=== PATIENT | female | born 1945 | race Caucasian/White ===

== ENCOUNTER 2017-06-18 09:18 | Emergency (ER) | payer MEDICARE, SELFPAY | END 2017-06-18 10:18 | disposition home or self-care (01) | PROVIDERS: Emergency Provider Nurse Practitioner; Family Provider Family Medicine; Visit Provider Nurse Practitioner | DX: J06.9 Acute upper respiratory infection, unspecified (principal) | CPT/HCPCS: 87804; 87880; 99201 ==

== ENCOUNTER → 2017-07-26 07:38 | Outpatient (CLI) | payer MEDICARE, SELFPAY ==
[2017-07-26 09:49] LABS: Blood Urea Nitrogen 14 mg/dL (7-18); Carbon Dioxide 32 mmol/L (21.0-32.0); Chloride 105 mmol/L (98-107); Creatinine,Serum 0.78 mg/dL (0.55-1.02); Estimated Glomerular Filt Rate 73 ml/min (>60); GFR (African American) 89 ML/MIN (>60); Glucose 88 mg/dL (74-106); Sodium 145 mmol/L (136-145)
== END ==
PROVIDERS: PCP Family Medicine; Visit Provider Internal Medicine
DX: I25.10 Atherosclerotic heart disease of native coronary artery without angina pectoris (principal)
CPT/HCPCS: 36415; 80048

== ENCOUNTER → 2017-10-28 14:47 | Outpatient (CLI) | payer MEDICARE, SELFPAY ==
--- NOTE | 2017-10-28 | CT_ITS ---
CT lung screening EXAM: CT LUNG LOW DOSE WO CONTRAST COMPARISON: 06/03/2017 HISTORY: 72-year-old female with 40 pack-year smoking history asymptomatic ITS.REASON: NICOTINE DEPENDENCE, COPD ORDERING PHYSICIAN: Mike Harp MD PATIENT AGE: 72 years TECHNIQUE: The exam was performed on a GE Light Speed [address] scanner using report 90 mGy CTDI. A low dose helical CT CHEST was performed on a multi-detector scanner. All CT scans at the facility use one or more dose reduction, viz: automated exposure control; ma/kV adjustment per patient size (including targeted exams where dose is matched to indication; i.e. head); or iterative reconstruction technique. The LDCT was performed in a facility that meets the criteria for the screening program. Data regarding this exam was submitted to ACR which is an approved registry. The order for this exam indicates that it came as a result of a lung cancer screening counseling shard decision-making visit that included all the elements required of such a visit including smoking cessation. The radiologist interpreting this exam meets the CMS criteria for the LDCT lung cancer screening program. The exam is reported using the Lung-RADS classification scale and reported to the ACR registry. NOTE: This study was performed for the specific purposes of lung cancer screening and is not an alternative to diagnostic chest CT. RADIATION DOSE: CTDI vol(CT dose Index-volume) = 2.90mG DLP (Dose Length Product) = 101.48 mGcm FINDINGS: Centrilobular emphysema. Scattered areas of fibrosis/atelectatic changes are noted. Bronchial thickening 4 mm noncalcified nodule right lung base 4 mm nodule right upper lobe medially unchanged 4 mm nodule left apex. Calcified granuloma left lower lobe. Increasing volume loss is present in the left upper lobe medially adjacent to the anterior mediastinum Coronary artery calcifications. IMPRESSION: 1. Lung RADS Category: 2, benign 2. Other findings: Centrilobular emphysema with scattered areas of fibrosis and obstructive chronic bronchitis Coronary artery calcifications consistent with coronary artery disease RECOMMENDATIONS: 12 month LDCT follow-up
== END ==
PROVIDERS: Family Provider Family Medicine; PCP Family Medicine; Visit Provider Family Medicine
DX: Z87.891 Personal history of nicotine dependence (principal); Z12.2 Encounter for screening for malignant neoplasm of respiratory organs; J44.9 Chronic obstructive pulmonary disease, unspecified

== ENCOUNTER → 2017-11-02 09:22 | Outpatient (CLI) | payer MEDICARE, SELFPAY ==
--- NOTE | 2017-11-02 09:24 | MM_ITS ---
MM Dig screening mamm BI w/CAD CAD Screening ORDERING PHYSICIAN : Mike Harp MD PATIENT AGE: 72 years GENDER: Female HISTORY no hormones no new complaints previous stereotactic biopsies left breast 2015 COMPARISON: September 24, 2015 September. March 2001 Bilateral breast Ultrasound September 19 2015 . TECHNIQUE: Standard CC and MLO images were obtained. R2 CAD reviewed. FINDINGS: RIGHT BREAST:The round density at the central right breast is again noted. 8 x x 8.7 mm height. This Is been present since 2016 mammogram with no significant change.. . Ultrasound reveal benign-appearing solid nodules. We recommended ultrasound biopsy at that time 2015 but apparently no biopsy of the right breast was performed. However given the stability at this point this can be it can be followed-suspect benign fibroadenoma. Recommend right breast ultrasound and mammogram 6 months Remainder the right breast appears stable as well. LEFT BREAST:. 2 metallic marker markers are seen at the deep left breast. The 2 groupings of calcifications were removed September 2015 with placement of these markers. Both groupings calcification groupings were found to be benign sclerosing adenosis and fibroadenomatoid change.. An additional grouping small calcifications at the deep upper outer quadrant left breast is more evident today. This is labeled Z. It was likely present before but but the calcifications are slightly denser on this more evident. These may reflect progressing vascular calcifications or could reflect a similar process to previous biopsy area labeled X in 2016. I favor these are benign but would suggest follow-up 6-7 months t for continued monitoring. . IMPRESSION: Most likely benign findings bilaterally but would benefit from follow-up in 6-7 months to support such.: LEFT BREAST: 1. Metallic markers at site of 2 Previous 2016 stereotactic biopsy left breast 2. Slightly more evident grouping of small calcifications deeper at the left breast labeled Z today. The calcifications are denser slightly more evident today but likely reflects benign calcification grouping-(either vascular calcification or adenosis). At this point suggest 6- 7 month follow-up. RIGHT BREAST Just less than 9 mm nodular density at right breast was noted on prior mammogram and ultrasound 2015. 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 I suggest right mammogram and right breast ultrasound in 6-7 months to further evaluate this area as well BI-RADS Category: 3 Benign Finding Short Term Follow-up RECOMMENDED FOLLOW-UP: 6M - 7 MONTH FOLLOW-UP Bilateral mammogram and right breast ultrasound 6-7 months (A letter has been sent to the patient regarding results of the study.)
== END ==
PROVIDERS: Family Provider Family Medicine; PCP Family Medicine; Visit Provider Family Medicine
DX: Z12.31 Encounter for screening mammogram for malignant neoplasm of breast (principal)
CPT/HCPCS: 77067

== ENCOUNTER → 2017-11-08 14:10 | Outpatient (CLI) | payer MEDICARE, SELFPAY | PROVIDERS: PCP Family Medicine; Visit Provider Family Medicine | DX: G47.30 Sleep apnea, unspecified (principal); R40.0 Somnolence; R06.83 Snoring | CPT/HCPCS: 95806 ==

== ENCOUNTER → 2018-01-05 10:25 | Outpatient (CLI) | payer MEDICARE, SELFPAY ==
[2018-01-05 10:31] LABS: Microscopic, Urine URINE MICROSCOPIC (MICROSCOPIC)
[2018-01-05 10:48] LABS: Basophils # 0.1 K/mm3 (0-0.2); Basophils % 0.6 % (0.1-2.0); Eosinophils # 0.2 K/mm3 (0.0-0.4); Eosinophils % 1.7 % (0.1-12.0); Hematocrit 42.7 % (37.0-47.0); Lymphocytes # 2.6 K/mm3 (0.7-4.5); Lymphocytes % 22.9 K/mm3 (10-50); Mean Corpuscular HGB Conc 32.8 g/dL (31.8-35.4); Mean Corpuscular Hemoglobin 30.4 pg (27.0-31.2); Mean Corpuscular Volume 92.8 fl (81-99); Mean Platelet Volume 7.9 fl (7.4-10.4); Monocytes # 0.4 K/mm3 (0.1-1.0); Monocytes % 3.4 % (1.7-9.3); Neutrophils # 8.2 K/mm3 (1.8-7.8); Neutrophils % 71.4 % (37.0-80.0); Platelet Count 437 K/mm3 (142-424); Red Cell Distribution Width 12.7 % (11.5-17.5); White Blood Count 11.4 K/mm3 (4.8-10.8)
[2018-01-05 10:54] LABS: Appearance,Urine CLEAR (Clear); Bilirubin,Urine Negative (Negative); Blood, Urine Negative (Negative); Color,Urine YELLOW (Yellow); Glucose,Urine (UA) Negative (Negative); Ketones,Urine Negative (Negative); Leukocyte Esterase,Urine TRACE (Negative); Nitrate,Urine Negative (Negative); Protein,Urine Negative (Negative); Specific Gravity, Urine 1.015 (1.005-1.030); Urobilinogen,Urine 0.2 EU/dl (0.2)
[2018-01-05 11:06] LABS: Bacteria,Urine Trace /lpf; Squamous Epithelial Cell,Urine 20-50 #/hpf (0-5); WBC,Urine Occasional #/hpf (0-3)
[2018-01-05 11:32] LABS: Alanine Aminotransferase 20 U/L (12-78); Albumin Level 3.3 gm/dL (3.4-5.0); Alkaline Phosphatase 145 U/L (46-116); Anion Gap 7.2 mEq/L (5-15); Aspartate Amino Transferase 9 U/L (15-37); Bilirubin,Direct 0.1 mg/dL (0.0-0.2); Bilirubin,Indirect 0.3 mg/dL (0.0-0.9); Bilirubin,Total 0.4 mg/dL (0.2-1.0); Blood Urea Nitrogen 11 mg/dL (7-18); Calcium 9.2 mg/dL (8.5-10.1); Carbon Dioxide 33 mmol/L (21.0-32.0); Chloride 103 mmol/L (98-107); Chol/HDL Ratio 4.9 (1-3.5); Cholesterol 192 mg/dL (140-200); Creatinine,Serum 0.91 mg/dL (0.55-1.02); Estimated Glomerular Filt Rate 61 ml/min (>60); Free T4 (Free Thyroxine) 1.03 ng/dl (0.76-1.46); GFR (African American) 74 ML/MIN (>60); Glucose 104 mg/dL (74-106); HDL Cholesterol 39 mg/dL (29-89); LDL Cholesterol 133 mg/dL (0-130); Potassium 3.2 mmoL/L (3.5-5.1); Sodium 140 mmol/L (136-145); Thyroid Stimulating Hormone 1.15 uIU/ml (0.358-3.740); Total Protein,Serum 6.7 gm/dL (6.4-8.2); Triglycerides 101 mg/dL (30-200); VLDL Cholesterol 20 mg/dL (0-40)
== END ==
PROVIDERS: Family Provider Family Medicine; PCP Family Medicine; Visit Provider Internal Medicine Cardiovascular Disease
DX: I25.10 Atherosclerotic heart disease of native coronary artery without angina pectoris (principal); I11.9 Hypertensive heart disease without heart failure; J44.9 Chronic obstructive pulmonary disease, unspecified; M79.661 Pain in right lower leg; M79.662 Pain in left lower leg; G25.81 Restless legs syndrome; I27.20 Pulmonary hypertension, unspecified; Z72.0 Tobacco use; R68.83 Chills (without fever)
CPT/HCPCS: 36415; 80048; 80061; 80076; 81001; 84439; 84443; 85025

== ENCOUNTER 2018-01-24 10:36 | Observation (INO) ==
[2018-01-24 11:59] LABS: Basophils % 0.1 % (0.1-2.0); Eosinophils % 0.2 % (0.1-12.0); Hematocrit 47.6 % (37.0-47.0); Hemoglobin 15.7 g/dL (12.2-16.2); Lymphocytes # 1.2 K/mm3 (0.7-4.5); Mean Corpuscular Hemoglobin 30.1 pg (27.0-31.2); Mean Corpuscular Volume 91.4 fl (81-99); Mean Platelet Volume 6.8 fl (7.4-10.4); Monocytes # 0.9 K/mm3 (0.1-1.0); Monocytes % 4.5 % (1.7-9.3); Neutrophils # 18.4 K/mm3 (1.8-7.8); Neutrophils % 89.2 % (37.0-80.0); Platelet Count 551 K/mm3 (142-424); Red Blood Count 5.21 M/mm3 (4.20-5.40); White Blood Count 20.6 K/mm3 (4.8-10.8)
[2018-01-24 12:15] LABS: Albumin Level 3.3 gm/dL (3.4-5.0); Albumin/Globulin Ratio 0.8 (1.1-1.8); Bilirubin,Total 0.3 mg/dL (0.2-1.0); Calcium 8.9 mg/dL (8.5-10.1); Globulin 4.1 gm/dl (1.3-3.2); Total Protein,Serum 7.4 gm/dL (6.4-8.2)
[2018-01-24 12:15] LABS: ABG Base Excess 7.3 mmol/L (-2.4-2.3); ABG HCO3 31.4 mmhg (22.0-26.0); ABG Oxygen Saturation 92 % (90-100); ABG PCO2 46.5 mmhg (35.0-45.0); ABG PH 7.45 mmol/L (7.35-7.45); ABG PO2 63.3 mmhg (80-100); ABG TCO2 32.8 mmhg (23-27)
[2018-01-24 14:30] LABS: Lymphocytes % 5 % (10-50); Monocytes % 6 % (2-9); Neutrophils % 88 % (42-76); RBC Morphology Normal; Total Cells Counted 100
--- NOTE | 2018-01-24 15:38 | Pharmacy Consult Notes ---
[facility] Pharmacy VTE Monitoring - Patient Demographics Admission date: 01/24/18 Report Date: 01/24/18 Time: 15:38 Allergies/Adverse Reactions: Patient Allergies Penicillins Allergy (Severe, Verified 01/24/18 11:33) I-RASH AND DIFFICULTY BREATHING oxycodone [From PERCOCET] Allergy (Unknown, Verified 01/24/18 11:35) Rash acetaminophen [From PERCOCET] Adverse Reaction (Unknown, Verified 01/24/18 11:35 ) Gastrointestinal Upset codeine Adverse Reaction (Unknown, Verified 01/24/18 11:35) keeps her awake Height: 1.47 m Weight: 64.92 kg - VTE Risk Labs: VTE Related Lab Results Hgb 15.7 g/dL (12.2-16.2) 01/24/18 11:22 Hct 47.6 % (37.0-47.0) H 01/24/18 11:22 Plt Count 551 K/mm3 (142-424) H 01/24/18 11:22 BUN 33 mg/dL (7-18) H 01/24/18 11:22 Creatinine 1.14 mg/dL (0.55-1.02) H 01/24/18 11:22 Estimated Creat Clear 47 mL/min (0-300) 01/24/18 11:22 Was VTE Risk Assessment Performed: Yes VTE Score: 5 VTE Risk Level: Low Risk - Prophylaxis VTE Prophylaxis Ordered?: Yes Types of VTE Prophylaxis: TEDS Knee High Location of Applied Device: Bilateral Lower Extremeties - VTE Diagnosis Confirmed Treatment or plan recommended: Continue Current Treatment
--- NOTE | 2018-01-24 16:06 | Progress Note ---
Internal Medicine - PN: Subj *Date: 01/24/18 *Time: 16:03 Interval history: Patient was direct admitted from the office earlier in the day for COPD exacerbation that had failed outpatient treatment. Patient's O2 sats were in the mid 80s despite addition of supplemental oxygen as an outpatient. Since admission chest x-rays confirmed the presence of a right middle lobe pneumonia and white blood cell count has been elevated. Patient is only been hospitalized for a few hours and feels about the same. Exam Vital signs and Labs for Last 24 Hours: Temp Pulse Resp BP Pulse Ox 99.2 F 79 20 140/74 90 L 01/24/18 15:55 01/24/18 15:55 01/24/18 15:55 01/24/18 15:55 01/24/18 15:55 Laboratory Results - last 24 hr 01/24/18 11:22: WBC 20.6 H*, RBC 5.21, Hgb 15.7, Hct 47.6 H, MCV 91.4, MCH 30.1 , MCHC 33.0, RDW 13.0, Plt Count 551 H, MPV 6.8 L, Neut % (Auto) 89.2 H, Lymph % (Auto) 6.0 L, [place] % (Auto) 4.5, Eos % (Auto) 0.2, Baso % (Auto) 0.1, Neut # ( Auto) 18.4 H, Lymph # (Auto) 1.2, [place] # (Auto) 0.9, Eos # (Auto) 0.0, Baso # ( Auto) 0.0, Total Counted 100, Neutrophils % (Manual) 88 H, Lymphocytes % (Manual ) 5 L, Monocytes % (Manual) 6, Metamyelocytes % 1.0, Platelet Estimate Slight increase, RBC Morphology Normal 01/24/18 11:22: Sodium 138, Potassium 4.0, Chloride 99, Carbon Dioxide 33 H, Anion Gap 10.0, BUN 33 H, Creatinine 1.14 H, Estimated Creat Clear 47, Estimated GFR 47 L, Est GFR ( Amer) 57 L, Glucose 123 H, Calcium 8.9, Magnesium 2.4 H, Total Bilirubin 0.3, AST 11 L, ALT 19, Alkaline Phosphatase 138 H, Total Protein 7.4, Albumin 3.3 L, Globulin 4.1 H, Albumin/Globulin Ratio 0.8 L I & O for Last 24 hours: Intake & Output 01/22/18 01/23/18 01/24/18 01/25/18 11:59 11:59 11:59 11:59 Weight 143 lb 2 oz 143 lb 2 oz Assessment and Plan (1) Right middle lobe pneumonia Current visit: Yes Status: Acute Category: Medical Code(s): J18.1 - Lobar pneumonia, unspecified organism (2) COPD with exacerbation Current visit: Yes Status: Acute Category: Medical Code(s): J44.1 - Chronic obstructive pulmonary disease with (acute) exacerbation (3) Failure of outpatient treatment Current visit: Yes Status: Acute Category: Medical Code(s): Z78.9 - Other specified health status (4) Pulmonary hypertension Current visit: No Status: Chronic Category: Medical Code(s): I27.20 - Pulmonary hypertension, unspecified (5) Hypertensive heart disease Current visit: No Status: Chronic Category: Medical Code(s): I11.9 - Hypertensive heart disease without heart failure (6) Coronary arteriosclerosis Current visit: No Status: Chronic Category: Medical Code(s): I25.10 - Atherosclerotic heart disease of [place] coronary artery without angina pectoris - Assessment and plan all Dx Assessment and Plan for all problems:: Patient has been placed on intravenous steroids as well as duo nebs. Because of recent antibiotic use with Ceftin ear patient will be placed on broad- spectrum antibiotics until sputum culture is back
--- NOTE | 2018-01-24 16:22 | Pharmacy Consult Notes ---
- Pharmacy Consult Date: 01/24/18 Time: 16:21 Referring provider: DR. SUBRAMANIAN Reason for Consult:: VANCOMYCIN DOSING Allergies and ADEs:: Allergies Allergy/AdvReac Type Severity Reaction Status Date / Time Penicillins Allergy Severe I-RASH AND Verified 01/24/18 11:33 DIFFICULTY BREATHING oxycodone [From PERCOCET] Allergy Unknown Rash Verified 01/24/18 11:35 acetaminophen [From PERCOCET] AdvReac Unknown Gastrointestinal Verified 11:35 Upset codeine AdvReac Unknown keeps her Verified 01/24/18 11:35 awake Home Medications:: Home Medications Medication Instructions Recorded Confirmed Type atorvastatin 10 mg tablet 10 mg PO DAILY 07/07/17 01/24/18 History carvedilol 6.25 mg tablet 6.25 mg PO BID 07/07/17 01/24/18 History cholecalciferol (vitamin D3) 2,000 2,000 unit PO DAILY 07/07/17 01/24/18 History unit capsule furosemide 40 mg tablet 40 mg PO DAILYP PRN tab 07/07/17 01/24/18 History loratadine 10 mg tablet 10 mg PO DAILY 07/07/17 01/24/18 History montelukast 10 mg tablet 10 mg PO HS 07/07/17 01/24/18 History multivitamin tablet 1 tab PO DAILY 07/07/17 01/24/18 History omeprazole 20 mg capsule,delayed 20 mg PO DAILY 07/07/17 01/24/18 History release losartan 25 mg tablet 25 mg PO DAILY tab 01/05/18 01/24/18 History Benzonatate [Benzonatate 200mg Cap] 200 mg PO TID 01/24/18 01/24/18 History Cefdinir [Omnicef 300mg Capsule] 300 mg PO BID 01/24/18 01/24/18 History Fluticasone Propionate [Flonase 1 spray NOSTRIL-B BID 01/24/18 01/24/18 History 50mcg nasal spray 16gm] Fluticasone/Vilanterol [Breo 1 each IH DAILY 01/24/18 01/24/18 History Ellipta 200-25 Mcg INH] Hydrocod/Acet 5/325 mg [[place] 1 tab PO Q6HP PRN 01/24/18 01/24/18 History 5/325mg tablet] Ipratropium/Albuterol Sulfate 3 ml IH Q6H 01/24/18 01/24/18 History [Iprat-Albut 0.5-3(2.5) mg/3 ml] Potassium Chloride [Klor-Con 10mEq 10 meq PO BID 01/24/18 01/24/18 History tab] predniSONE [Deltasone 20mg 40 mg PO DAILY 01/24/18 01/24/18 History tablet] Height: 1.47 m Weight: 64.92 kg Laboratory Results:: Laboratory Results - last 24 hr 01/24/18 11:22: WBC 20.6 H*, RBC 5.21, Hgb 15.7, Hct 47.6 H, MCV 91.4, MCH 30.1 , MCHC 33.0, RDW 13.0, Plt Count 551 H, MPV 6.8 L, Neut % (Auto) 89.2 H, Lymph % (Auto) 6.0 L, [place] % (Auto) 4.5, Eos % (Auto) 0.2, Baso % (Auto) 0.1, Neut # ( Auto) 18.4 H, Lymph # (Auto) 1.2, [place] # (Auto) 0.9, Eos # (Auto) 0.0, Baso # ( Auto) 0.0, Total Counted 100, Neutrophils % (Manual) 88 H, Lymphocytes % (Manual ) 5 L, Monocytes % (Manual) 6, Metamyelocytes % 1.0, Platelet Estimate Slight increase, RBC Morphology Normal 01/24/18 11:22: Sodium 138, Potassium 4.0, Chloride 99, Carbon Dioxide 33 H, Anion Gap 10.0, BUN 33 H, Creatinine 1.14 H, Estimated Creat Clear 47, Estimated GFR 47 L, Est GFR ( Amer) 57 L, Glucose 123 H, Calcium 8.9, Magnesium 2.4 H, Total Bilirubin 0.3, AST 11 L, ALT 19, Alkaline Phosphatase 138 H, Total Protein 7.4, Albumin 3.3 L, Globulin 4.1 H, Albumin/Globulin Ratio 0.8 L Medical History: Reports:: Congestive Heart Failure, Hyperlipidemia, Hypertension Denies:: Diabetes Mellitus Type 1, Diabetes Mellitus Type 2 Assessment and Plan (1) Right middle lobe pneumonia Current visit: Yes Status: Acute Category: Medical Code(s): J18.1 - Lobar pneumonia, unspecified organism (2) COPD with exacerbation Current visit: Yes Status: Acute Category: Medical Code(s): J44.1 - Chronic obstructive pulmonary disease with (acute) exacerbation (3) Failure of outpatient treatment Current visit: Yes Status: Acute Category: Medical Code(s): Z78.9 - Other specified health status (4) Pulmonary hypertension Current visit: No Status: Chronic Category: Medical Code(s): I27.20 - Pulmonary hypertension, unspecified (5) Hypertensive heart disease Current visit: No Status: Chronic Category: Medical Code(s): I11.9 - Hypertensive heart disease without heart failure (6) Coronary arteriosclerosis Current visit: No Status: Chronic Category: Medical Code(s): I25.10 - Atherosclerotic heart disease of [place] coronary artery without angina pectoris - Assessment and plan all Dx Assessment and Plan for all problems:: BASED ON PATIENT FACTORS, RECOMMEND VANCOMYCIN 1 GM IV Q24H. PHARMACY WILL FOLLOW DAILY AND ADJUST APPROPRIATE.
[2018-01-25 06:01] LABS: Basophils % 0.1 % (0.1-2.0); Eosinophils # 0.1 K/mm3 (0.0-0.4); Eosinophils % 0.5 % (0.1-12.0); Hemoglobin 14.3 g/dL (12.2-16.2); Lymphocytes # 0.9 K/mm3 (0.7-4.5); Lymphocytes % 6.1 K/mm3 (10-50); Mean Corpuscular HGB Conc 33.2 g/dL (31.8-35.4); Mean Corpuscular Hemoglobin 31.1 pg (27.0-31.2); Mean Corpuscular Volume 93.6 fl (81-99); Mean Platelet Volume 6.7 fl (7.4-10.4); Monocytes # 0.4 K/mm3 (0.1-1.0); Monocytes % 2.5 % (1.7-9.3); Neutrophils # 12.6 K/mm3 (1.8-7.8); Neutrophils % 90.8 % (37.0-80.0); Platelet Count 400 K/mm3 (142-424); Red Blood Count 4.59 M/mm3 (4.20-5.40); Red Cell Distribution Width 13.1 % (11.5-17.5); White Blood Count 13.9 K/mm3 (4.8-10.8)
--- NOTE | 2018-01-25 07:20 | Progress Note ---
Internal Medicine - PN: Subj *Date: 01/25/18 *Time: 07:18 Interval history: Patient notes some improvement in her cough and dyspnea at rest. She still gets quite short of breath walking to and from the bathroom. Sputum production has decreased. She endorses additional symptoms of vaginal burning and itching from what she believes a yeast infection and difficulty swallowing. She feels like food is getting stuck just above the stomach whenever she is eating. Exam Vital signs and Labs for Last 24 Hours: Temp Pulse Resp BP Pulse Ox 97.8 F 81 20 149/84 89 L 01/25/18 04:00 01/25/18 06:05 01/25/18 04:00 01/25/18 04:00 01/25/18 06:05 Laboratory Results - last 24 hr 01/24/18 11:22: WBC 20.6 H*, RBC 5.21, Hgb 15.7, Hct 47.6 H, MCV 91.4, MCH 30.1 , MCHC 33.0, RDW 13.0, Plt Count 551 H, MPV 6.8 L, Neut % (Auto) 89.2 H, Lymph % (Auto) 6.0 L, [place] % (Auto) 4.5, Eos % (Auto) 0.2, Baso % (Auto) 0.1, Neut # ( Auto) 18.4 H, Lymph # (Auto) 1.2, [place] # (Auto) 0.9, Eos # (Auto) 0.0, Baso # ( Auto) 0.0, Total Counted 100, Neutrophils % (Manual) 88 H, Lymphocytes % (Manual ) 5 L, Monocytes % (Manual) 6, Metamyelocytes % 1.0, Platelet Estimate Slight increase, RBC Morphology Normal 01/24/18 11:22: Sodium 138, Potassium 4.0, Chloride 99, Carbon Dioxide 33 H, Anion Gap 10.0, BUN 33 H, Creatinine 1.14 H, Estimated Creat Clear 47, Estimated GFR 47 L, Est GFR ( Amer) 57 L, Glucose 123 H, Calcium 8.9, Magnesium 2.4 H, Total Bilirubin 0.3, AST 11 L, ALT 19, Alkaline Phosphatase 138 H, Total Protein 7.4, Albumin 3.3 L, Globulin 4.1 H, Albumin/Globulin Ratio 0.8 L 01/25/18 05:39: WBC 13.9 H D, RBC 4.59, Hgb 14.3, Hct 43.0, MCV 93.6, MCH 31.1, MCHC 33.2, RDW 13.1, Plt Count 400 D, MPV 6.7 L, Neut % (Auto) 90.8 H, Lymph % (Auto) 6.1 L, [place] % (Auto) 2.5, Eos % (Auto) 0.5, Baso % (Auto) 0.1, Neut # ( Auto) 12.6 H, Lymph # (Auto) 0.9, [place] # (Auto) 0.4, Eos # (Auto) 0.1, Baso # ( Auto) 0.0 I & O for Last 24 hours: Intake & Output 01/22/18 01/23/18 01/24/18 01/25/18 11:59 11:59 11:59 11:59 Intake Total 740 / 740 Output Total 600 / 600 Balance 140 / 140 Weight 143 lb 2 oz 144 lb 9 oz Microbiology Reports for the Last 24 Hours: Microbiology 01/24/18 11:37 Sputum - Expectorated Sputum Gram Stain - Final Narrative: Patient is in no distress. She sitting up on the side of the bed. Heart has a regular rate and rhythm. Lungs have rales in the right midlung best heard laterally and expiratory wheezes. Rhonchi have improved. Assessment and Plan (1) Right middle lobe pneumonia Current visit: Yes Status: Acute Category: Medical Code(s): J18.1 - Lobar pneumonia, unspecified organism (2) COPD with exacerbation Current visit: Yes Status: Acute Category: Medical Code(s): J44.1 - Chronic obstructive pulmonary disease with (acute) exacerbation (3) Failure of outpatient treatment Current visit: Yes Status: Acute Category: Medical Code(s): Z78.9 - Other specified health status (4) Pulmonary hypertension Current visit: No Status: Chronic Category: Medical Code(s): I27.20 - Pulmonary hypertension, unspecified (5) Hypertensive heart disease Current visit: No Status: Chronic Category: Medical Code(s): I11.9 - Hypertensive heart disease without heart failure (6) Coronary arteriosclerosis Current visit: No Status: Chronic Category: Medical Code(s): I25.10 - Atherosclerotic heart disease of [place] coronary artery without angina pectoris - Assessment and plan all Dx Assessment and Plan for all problems:: Continue broad-spectrum antibiotics until cultures are back. Add Diflucan for candidiasis. Add Protonix and Reglan for her esophageal dysphagia
[2018-01-25 08:47] LABS: Lymphocytes % 8 % (10-50); Monocytes % 1 % (2-9); Neutrophils % 90 % (42-76); RBC Morphology Normal; Total Cells Counted 100
[2018-01-26 05:27] LABS: Basophils % 0.1 % (0.1-2.0); Eosinophils % 0.2 % (0.1-12.0); Hemoglobin 13.6 g/dL (12.2-16.2); Lymphocytes # 0.9 K/mm3 (0.7-4.5); Lymphocytes % 5.7 K/mm3 (10-50); Mean Corpuscular HGB Conc 32.3 g/dL (31.8-35.4); Mean Corpuscular Hemoglobin 29.9 pg (27.0-31.2); Mean Corpuscular Volume 92.4 fl (81-99); Mean Platelet Volume 6.6 fl (7.4-10.4); Monocytes # 0.6 K/mm3 (0.1-1.0); Monocytes % 3.7 % (1.7-9.3); Neutrophils # 14.7 K/mm3 (1.8-7.8); Neutrophils % 90.4 % (37.0-80.0); Platelet Count 440 K/mm3 (142-424); Red Blood Count 4.54 M/mm3 (4.20-5.40); White Blood Count 16.2 K/mm3 (4.8-10.8)
[2018-01-26 06:18] LABS: Lymphocytes % 7 % (10-50); Monocytes % 2 % (2-9); Neutrophils % 91 % (42-76); Total Cells Counted 100
[2018-01-26 06:19] LABS: Anisocytosis 1+
[2018-01-26 06:54] LABS: Oxygen 2LPM %
--- NOTE | 2018-01-26 07:05 | Progress Note ---
Internal Medicine - PN: Subj *Date: 01/26/18 *Time: 07:02 Interval history: Patient continues to feel better. She has dyspnea on exertion but this is improved some since yesterday. She endorses a lot of nasal congestion and nasal dryness from use of the supplemental oxygen. Exam Vital signs and Labs for Last 24 Hours: Temp Pulse Resp BP Pulse Ox 98.3 F 77 20 141/81 91 L 01/26/18 04:00 01/26/18 06:24 01/26/18 04:00 01/26/18 04:00 01/26/18 06:24 Laboratory Results - last 24 hr 01/24/18 10:14: Specimen Source R brachial, O2 % 2lpm, ABG pH 7.45, ABG pCO2 46.5 H, ABG pO2 63.3 L, ABG HCO3 31.4 H, ABG Total CO2 32.8 H, ABG O2 Saturation 92, ABG Base Excess 7.3 H, Jean Test N/a 01/25/18 05:39: Total Counted 100, Neutrophils % (Manual) 90 H, Lymphocytes % ( Manual) 8 L, Atypical Lymphs % 1.0, Monocytes % (Manual) 1 L, Platelet Estimate Slight increase, RBC Morphology Normal 01/26/18 04:40: WBC 16.2 H, RBC 4.54, Hgb 13.6, Hct 42.0, MCV 92.4, MCH 29.9, MCHC 32.3, RDW 13.0, Plt Count 440 H, MPV 6.6 L, Neut % (Auto) 90.4 H, Lymph % ( Auto) 5.7 L, [place] % (Auto) 3.7, Eos % (Auto) 0.2, Baso % (Auto) 0.1, Neut # ( Auto) 14.7 H, Lymph # (Auto) 0.9, [place] # (Auto) 0.6, Eos # (Auto) 0.0, Baso # ( Auto) 0.0, Total Counted 100, Neutrophils % (Manual) 91 H, Lymphocytes % (Manual ) 7 L, Monocytes % (Manual) 2, Platelet Estimate Normal, Anisocytosis 1+ I & O for Last 24 hours: Intake & Output 01/23/18 01/24/18 01/25/18 01/26/18 11:59 11:59 11:59 11:59 Intake Total 1010 / 1010 960 / 960 Output Total 700 / 700 1300 / 1300 Balance 310 / 310 -340 / -340 Weight 143 lb 2 oz 144 lb 9 oz 149 lb 1 oz Microbiology Reports for the Last 24 Hours: Microbiology 01/24/18 11:37 Sputum - Expectorated Sputum Gram Stain - Final 01/24/18 11:37 Sputum - Expectorated Sputum Sputum Culture - Preliminary Gram Negative Rods Narrative: When I enter the room patient is standing at the window. After removing 12 feet from the window to the bed patient gets mildly breathless. Lung exam reveals expiratory wheezes. Heart has a regular rate and rhythm. Assessment and Plan (1) Right middle lobe pneumonia Current visit: Yes Status: Acute Category: Medical Code(s): J18.1 - Lobar pneumonia, unspecified organism (2) COPD with exacerbation Current visit: Yes Status: Acute Category: Medical Code(s): J44.1 - Chronic obstructive pulmonary disease with (acute) exacerbation (3) Failure of outpatient treatment Current visit: Yes Status: Acute Category: Medical Code(s): Z78.9 - Other specified health status (4) Pulmonary hypertension Current visit: No Status: Chronic Category: Medical Code(s): I27.20 - Pulmonary hypertension, unspecified (5) Hypertensive heart disease Current visit: No Status: Chronic Category: Medical Code(s): I11.9 - Hypertensive heart disease without heart failure (6) Coronary arteriosclerosis Current visit: No Status: Chronic Category: Medical Code(s): I25.10 - Atherosclerotic heart disease of [place] coronary artery without angina pectoris (7) Acute respiratory failure Current visit: Yes Status: Acute Category: Medical Code(s): J96.00 - Acute respiratory failure, unspecified whether with hypoxia or hypercapnia - Assessment and plan all Dx Assessment and Plan for all problems:: Discontinue vancomycin due to the gram-negative [place] growing in the sputum culture. Continue levofloxacin. Await final sputum culture. Restart the patient's home fluticasone. Patient is improving.
--- NOTE | 2018-01-27 07:08 | Progress Note ---
Internal Medicine - PN: Subj *Date: 01/27/18 *Time: 07:07 Interval history: Patient feels better today than she did yesterday. She continues to have dyspnea on exertion. Cough has now become nonproductive. Exam Vital signs and Labs for Last 24 Hours: Temp Pulse Resp BP Pulse Ox 98.4 F 76 20 143/94 90 L 01/27/18 04:00 01/27/18 06:33 01/27/18 04:00 01/27/18 04:00 01/27/18 06:33 I & O for Last 24 hours: Intake & Output 01/24/18 01/25/18 01/26/18 01/27/18 11:59 11:59 11:59 11:59 Intake Total 1010 / 1010 1470 / 1470 1080 / 1080 Output Total 700 / 700 1300 / 1300 1950 / 1950 Balance 310 / 310 170 / 170 -870 / -870 Weight 143 lb 2 oz 144 lb 9 oz 149 lb 1 oz 151 lb 1 oz Microbiology Reports for the Last 24 Hours: Microbiology 01/24/18 11:37 Sputum - Expectorated Sputum Gram Stain - Final 01/24/18 11:37 Sputum - Expectorated Sputum Sputum Culture - Preliminary Gram Negative Rods Narrative: Patient is awake and sitting up on the side of the bed. There are no signs of respiratory distress or increased work of breathing. Lungs have expiratory wheezes without rhonchi or rales. Heart regular rate and rhythm. Assessment and Plan (1) Right middle lobe pneumonia Current visit: Yes Status: Acute Category: Medical Code(s): J18.1 - Lobar pneumonia, unspecified organism (2) COPD with exacerbation Current visit: Yes Status: Acute Category: Medical Code(s): J44.1 - Chronic obstructive pulmonary disease with (acute) exacerbation (3) Failure of outpatient treatment Current visit: Yes Status: Acute Category: Medical Code(s): Z78.9 - Other specified health status (4) Pulmonary hypertension Current visit: No Status: Chronic Category: Medical Code(s): I27.20 - Pulmonary hypertension, unspecified (5) Hypertensive heart disease Current visit: No Status: Chronic Category: Medical Code(s): I11.9 - Hypertensive heart disease without heart failure (6) Coronary arteriosclerosis Current visit: No Status: Chronic Category: Medical Code(s): I25.10 - Atherosclerotic heart disease of [place] coronary artery without angina pectoris (7) Acute respiratory failure Current visit: Yes Status: Acute Category: Medical Code(s): J96.00 - Acute respiratory failure, unspecified whether with hypoxia or hypercapnia - Assessment and plan all Dx Assessment and Plan for all problems:: Await sputum culture. If patient's sputum grow Pseudomonas she will need 6 additional days of IV antibiotics. If culture grows a non-pseudomonal organism patient can be discharged home later this afternoon to finish outpatient antibiotics and steroids.
[2018-01-27 07:12] LABS: Basophils % 0.1 % (0.1-2.0); Eosinophils % 0.3 % (0.1-12.0); Hematocrit 44.3 % (37.0-47.0); Hemoglobin 14.3 g/dL (12.2-16.2); Lymphocytes # 0.7 K/mm3 (0.7-4.5); Lymphocytes % 5.4 K/mm3 (10-50); Mean Corpuscular HGB Conc 32.2 g/dL (31.8-35.4); Mean Corpuscular Hemoglobin 30.2 pg (27.0-31.2); Mean Corpuscular Volume 93.6 fl (81-99); Mean Platelet Volume 6.7 fl (7.4-10.4); Monocytes # 0.5 K/mm3 (0.1-1.0); Monocytes % 3.5 % (1.7-9.3); Neutrophils # 12.2 K/mm3 (1.8-7.8); Neutrophils % 90.8 % (37.0-80.0); Platelet Count 456 K/mm3 (142-424); Red Blood Count 4.73 M/mm3 (4.20-5.40); Red Cell Distribution Width 13.2 % (11.5-17.5); White Blood Count 13.4 K/mm3 (4.8-10.8)
--- NOTE | 2018-01-27 07:26 | Discharge Summary ---
General - General Admission date:: 01/24/18 Discharge date: 01/27/18 HPI HPI: 72-year-old female admitted from the office with COPD exacerbation that had failed outpatient treatment. She returned to the office for her third visit in 10 days on January 23. At that time patient was quite rhonchus with wheezing and O2 sats in the mid 80s on supplemental oxygen of 2 L/min via nasal cannula. Decision was made to admit the patient to the hospital for failed outpatient treatment and further workup. Hospital Course Hospital Course: Patient was admitted and chest x-ray revealed a right middle lobe. White blood cell count was elevated at 20,000. Patient was started on vancomycin and Levaquin for broad-spectrum antibiotic coverage. Sputum which had been yellow begin to clear. Sputum culture grew a gram-negative [place] which at the time of this dictation is determined not to be Pseudomonas. Full identification and sensitivities still pending. Patient's O2 sats improved by the day of discharge her in the low 90s. Patient's activity tolerance improved a little each day in regards the amount of breathlessness she would experience. On January 27 patient was discharged home. She will finish a course of steroids and antibiotics and follow-up in my office on January 31. Objective Vital signs: Temp Pulse Resp BP Pulse Ox 98.4 F 76 20 143/94 90 L 01/27/18 04:00 01/27/18 06:33 01/27/18 04:00 01/27/18 04:00 01/27/18 06:33 Results Labs on day of discharge: Labs from last 24 hours 01/27/18 06:15 WBC 13.4 H RBC 4.73 Hgb 14.3 Hct 44.3 MCV 93.6 MCH 30.2 MCHC 32.2 RDW 13.2 Plt Count 456 H MPV 6.7 L Neut % (Auto) 90.8 H Lymph % (Auto) 5.4 L [place] % (Auto) 3.5 Eos % (Auto) 0.3 Baso % (Auto) 0.1 Neut # (Auto) 12.2 H Lymph # (Auto) 0.7 [place] # (Auto) 0.5 Eos # (Auto) 0.0 Baso # (Auto) 0.0 Preliminary micro results at discharge 01/24/18 11:37 Sputum Culture - Preliminary Sputum - Expectorated Sputum Gram Negative Rods DS: Diagnosis - Discharge Diagnosis (1) Right middle lobe pneumonia Status: Acute (2) COPD with exacerbation Status: Acute (3) Failure of outpatient treatment Status: Acute (4) Pulmonary hypertension Status: Chronic (5) Hypertensive heart disease Status: Chronic (6) Coronary arteriosclerosis Status: Chronic (7) Acute respiratory failure Status: Acute Discharge Plan - Patient Discharge Instructions ACTIVITY: Continue current activity DIET: continue same diet - Follow up Plan Follow up with: Mike Harp MD [Primary Care Provider] - Disposition: Home, Self-Fpc Medications: Home Medications Medication Instructions Recorded Confirmed Type atorvastatin 10 mg tablet 10 mg PO DAILY 07/07/17 01/24/18 History carvedilol 6.25 mg tablet 6.25 mg PO BID 07/07/17 01/24/18 History cholecalciferol (vitamin D3) 2,000 2,000 unit PO DAILY 07/07/17 01/24/18 History unit capsule furosemide 40 mg tablet 40 mg PO DAILYP PRN tab 07/07/17 01/24/18 History loratadine 10 mg tablet 10 mg PO DAILY 07/07/17 01/24/18 History montelukast 10 mg tablet 10 mg PO HS 07/07/17 01/24/18 History multivitamin tablet 1 tab PO DAILY 07/07/17 01/24/18 History omeprazole 20 mg capsule,delayed 20 mg PO DAILY 07/07/17 01/24/18 History release losartan 25 mg tablet 25 mg PO DAILY tab 01/05/18 01/24/18 History Benzonatate [Benzonatate 200mg Cap] 200 mg PO TID 01/24/18 01/24/18 History Cefdinir [Omnicef 300mg Capsule] 300 mg PO BID 01/24/18 01/24/18 History Fluticasone Propionate [Flonase 1 spray NOSTRIL-B BID 01/24/18 01/24/18 History 50mcg nasal spray 16gm] Fluticasone/Vilanterol [Breo 1 each IH DAILY 01/24/18 01/24/18 History Ellipta 200-25 Mcg INH] Hydrocod/Acet 5/325 mg [[place] 1 tab PO Q6HP PRN 01/24/18 01/24/18 History 5/325mg tablet] Ipratropium/Albuterol Sulfate 3 ml IH Q6H 01/24/18 01/24/18 History [Iprat-Albut 0.5-3(2.5) mg/3 ml] Potassium Chloride [Klor-Con 10mEq 10 meq PO BID 01/24/18 01/24/18 History tab] Prescriptions/Medication Reconciliation: New Fluconazole [Diflucan 100mg tablet] 100 mg PO DAILY #5 tab levoFLOXacin [Levaquin 750mg tablet] 750 mg PO DAILY #7 tab Continue atorvastatin 10 mg tablet 10 mg PO DAILY carvedilol 6.25 mg tablet 6.25 mg PO BID furosemide 40 mg tablet 40 mg PO DAILYP PRN tab PRN Reason: Edema montelukast 10 mg tablet 10 mg PO HS omeprazole 20 mg capsule,delayed release 20 mg PO DAILY multivitamin tablet 1 tab PO DAILY cholecalciferol (vitamin D3) 2,000 unit capsule 2,000 unit PO DAILY loratadine 10 mg tablet 10 mg PO DAILY losartan 25 mg tablet 25 mg PO DAILY tab Benzonatate [Benzonatate 200mg Cap] 200 mg PO TID Cefdinir [Omnicef 300mg Capsule] 300 mg PO BID Fluticasone/Vilanterol [Breo Ellipta 200-25 Mcg INH] 1 each IH DAILY Hydrocod/Acet 5/325 mg [[place] 5/325mg tablet] 1 tab PO Q6HP PRN PRN Reason: PAIN Potassium Chloride [Klor-Con 10mEq tab] 10 meq PO BID predniSONE [Deltasone 20mg tablet] 40 mg PO DAILY #10 tab Fluticasone Propionate [Flonase 50mcg nasal spray 16gm] 1 spray NOSTRIL-B BID Ipratropium/Albuterol Sulfate [Iprat-Albut 0.5-3(2.5) mg/3 ml] 3 ml IH Q6H
--- NOTE | 2018-01-27 07:30 | Progress Note ---
Internal Medicine - PN: Subj *Date: 01/27/18 *Time: 07:29 Exam Vital signs and Labs for Last 24 Hours: Temp Pulse Resp BP Pulse Ox 98.4 F 76 20 143/94 90 L 01/27/18 04:00 01/27/18 06:33 01/27/18 04:00 01/27/18 04:00 01/27/18 06:33 Laboratory Results - last 24 hr 01/27/18 06:15: WBC 13.4 H, RBC 4.73, Hgb 14.3, Hct 44.3, MCV 93.6, MCH 30.2, MCHC 32.2, RDW 13.2, Plt Count 456 H, MPV 6.7 L, Neut % (Auto) 90.8 H, Lymph % ( Auto) 5.4 L, [place] % (Auto) 3.5, Eos % (Auto) 0.3, Baso % (Auto) 0.1, Neut # ( Auto) 12.2 H, Lymph # (Auto) 0.7, [place] # (Auto) 0.5, Eos # (Auto) 0.0, Baso # ( Auto) 0.0 I & O for Last 24 hours: Intake & Output 01/24/18 01/25/18 01/26/18 01/27/18 23:59 23:59 23:59 23:59 Intake Total 630 / 630 1490 / 1490 1440 / 1440 Output Total 1600 / 1600 2350 / 2350 Balance 630 / 630 -110 / -110 -910 / -910 Weight 64.92 kg 65.572 kg 67.614 kg 68.521 kg Microbiology Reports for the Last 24 Hours: Microbiology 01/24/18 11:37 Sputum - Expectorated Sputum Gram Stain - Final 01/24/18 11:37 Sputum - Expectorated Sputum Sputum Culture - Preliminary Gram Negative Rods Assessment and Plan (1) Right middle lobe pneumonia Current visit: Yes Status: Acute Category: Medical Code(s): J18.1 - Lobar pneumonia, unspecified organism (2) COPD with exacerbation Current visit: Yes Status: Acute Category: Medical Code(s): J44.1 - Chronic obstructive pulmonary disease with (acute) exacerbation (3) Failure of outpatient treatment Current visit: Yes Status: Acute Category: Medical Code(s): Z78.9 - Other specified health status (4) Pulmonary hypertension Current visit: No Status: Chronic Category: Medical Code(s): I27.20 - Pulmonary hypertension, unspecified (5) Hypertensive heart disease Current visit: No Status: Chronic Category: Medical Code(s): I11.9 - Hypertensive heart disease without heart failure (6) Coronary arteriosclerosis Current visit: No Status: Chronic Category: Medical Code(s): I25.10 - Atherosclerotic heart disease of [place] coronary artery without angina pectoris (7) Acute respiratory failure Current visit: Yes Status: Acute Category: Medical Code(s): J96.00 - Acute respiratory failure, unspecified whether with hypoxia or hypercapnia The patient's infection will respond to the chosen ABx?: Yes Is the patient receiving the right drug, dose, and route?: Yes Could a more targeted ABx be ordered?: No 7 (PT BEING TRANSFERRED TO SWING BED FOR 7 MORE DAYS)
[2018-01-27 08:11] LABS: Lymphocytes % 9 % (10-50); Monocytes % 4 % (2-9); Neutrophils % 87 % (42-76); Total Cells Counted 100
[2018-01-27 08:14] LABS: RBC Morphology Normal
== END 2018-01-27 08:50 | disposition home or self-care (01) ==
LOC: 2ND
PROVIDERS: ADMIT Family Medicine; ATTEND Family Medicine
CPT/HCPCS: 36415; 71020; 71046; 80053; 82803; 83735; 85007; 85025; 87070; 87077; 87186; 87205; 94640; 94761; G0378; J1956; J3370

== ENCOUNTER → 2018-04-24 08:22 | Outpatient (CLI) | payer MEDICARE, SELFPAY ==
--- NOTE | 2018-04-24 08:25 | US_ITS ---
US gallbladder Ordering Physician: Mike Harp MD Patient Age: 72 years: Female HISTORY: ITS.REASON: RUQ PAIN right upper quadrant pain. Food greasy &//Fatty food intolerance TECHNIQUE: Ultrasound right upper quadrant COMPARISON :None relevant FINDINGS Pancreas. Unremarkable. Head, body and medial tail of pancreas well visualized and appears satisfactory. Liver. Unremarkable. No biliary ductal dilatation. No lesions. Satisfactory architecture. Hepatic and portal vein survey unremarkable. Common duct. Normal diameter. Gallbladder... Collection of focal sludge at the fundus of gallbladder.. However there is no shadowing here in this 10 to favor sludge within stone. No gallbladder wall thickening. No inflammation. Right kidney 8.4 cm in length. Mild diffuse cortical thinning. No hydronephrosis nor mass. IMPRESSION: 1. Gallbladder. Focal collection of echogenic sludge towards fundus is noted but no definitive shadowing gallstones Gallbladder otherwise unremarkable. Common duct normal. Liver pancreas unremarkable Right kidney. Mild Diffuse cortical thinning
== END ==
PROVIDERS: PCP Family Medicine; Visit Provider Family Medicine
DX: R10.11 Right upper quadrant pain (principal)
CPT/HCPCS: 76705

== ENCOUNTER → 2018-04-28 13:34 | Outpatient (CLI) | payer MEDICARE, SELFPAY ==
--- NOTE | 2018-04-28 13:37 | MM_ITS ---
MM Dig mamm BI DX w/CAD INDICATION: Follow-up abnormal mammogram ORDERING PHYSICIAN: Mike Harp MD PATIENT AGE: 72 years COMPARISON: 11/02/2017, 09/04/2015 TECHNIQUE: Standard images performed along with problem solving views and bilateral breast ultrasound FINDINGS: Average fibroglandular tissue. There are numerous bilateral nodular densities. A nodular density is present in the central aspect of the right breast is somewhat similar appearance on 09/19/2015 measured approximately 11 mm and may correspond to the solid nodule noted on the ultrasound and appear slightly larger on mammogram at 11 mm. Biopsy is suggested. No change in asymmetric density in the medial aspect of the right breast compared to 09/04/2015 Right breast ultrasound: There is a hypoechoic nodule at 12:00 near the nipple which measures 7 mm x 9 mm previously 10 x 8 mm. Stable since 09/19/2015 on ultrasound. There is a heterogeneous nodule at 8 mm at 2:00 near the nipple possibly due to fibroglandular tissue Left breast: Biopsy clip in the upper and inferior aspect of the left breast. They're mildly suspicious calcifications in the deep upper aspect of the left breast. Biopsy is suggested IMPRESSION: Solid-appearing nodule in the 12:00 region of the right breast appear slightly larger mammographically. Ultrasound-guided mammotome biopsy recommended Mildly suspicious calcifications in the upper outer left breast. Recommend stereotactic biopsy BI-RADS Category: 4 Suspicious Abnormality-Biopsy Considered RECOMMENDED FOLLOW-UP: BIO - BIOPSY RECOMMENDED (A letter has been sent to the patient regarding results of the study.)
== END ==
PROVIDERS: PCP Family Medicine; Visit Provider Family Medicine
DX: R92.8 Other abnormal and inconclusive findings on diagnostic imaging of breast (principal)
CPT/HCPCS: 76641; 77066

== ENCOUNTER → 2018-05-15 10:07 | Outpatient (CLI) | payer MEDICARE, SELFPAY ==
--- NOTE | 2018-05-15 | MM_ITS ---
US mammotome bx RT, US breast RT complete, MM Dig mamm DX unilat RT CAD INDICATION: Suspicious right breast nodule ORDERING PHYSICIAN: Mike Harp MD PATIENT AGE: 72 years COMPARISON: 04/28/2018 Prebiopsy ultrasound: Ultrasound performed of the right breast once again confirms presence of a hypoechoic nodule at the 12:00 region. The breast was marked appropriately for biopsy planning. TECHNIQUE: Following obtaining informed consent under aseptic conditions and local anesthesia with 1% buffered lidocaine and deeper anesthesia with lidocaine and epinephrine, 11-gauge mammotomy needle inserted through a skin incision under sonographic guidance and deemed to be in appropriate position. Multiple mammography cores are obtained. A nonferromagnetic clip was then placed in appropriate position. Pathology: Fibroadenoma to hyperplasia. Negative for atypia or malignancy. The pathology report states that this may represent a fibroadenoma Right breast mammogram post biopsy: 3 views are submitted showing that the previously noted nodule in the medial aspect of the right breast to be much smaller with a clip at this region. IMPRESSION: Successful sonographic guided mammotome biopsy showing benign findings. Recommend 6 month mammographic and sonographic follow-up per routine protocol BI-RADS Category: 2 Benign Finding(s) RECOMMENDED FOLLOW-UP: 6M - 6 MONTH FOLLOW-UP (A letter has been sent to the patient regarding results of the study.)
== END ==
PROVIDERS: PCP Family Medicine; Visit Provider Family Medicine
DX: R92.8 Other abnormal and inconclusive findings on diagnostic imaging of breast; N63.10 Unspecified lump in the right breast, unspecified quadrant
CPT/HCPCS: 19083; 76641; 77065; 88305; C2618

== ENCOUNTER → 2018-05-22 09:16 | Outpatient (CLI) | payer MEDICARE, SELFPAY ==
[2018-05-22 09:33] LABS: Basophils % 0.2 % (0.1-2.0); Eosinophils # 0.2 K/mm3 (0.0-0.4); Eosinophils % 1.4 % (0.1-12.0); Hematocrit 42.5 % (37.0-47.0); Hemoglobin 13.4 g/dL (12.2-16.2); Lymphocytes # 3.1 K/mm3 (0.7-4.5); Lymphocytes % 19.2 % (10-50); Mean Corpuscular HGB Conc 31.5 g/dL (31.8-35.4); Mean Corpuscular Volume 95.3 fl (81-99); Mean Platelet Volume 7.1 fl (7.4-10.4); Monocytes # 0.8 K/mm3 (0.1-1.0); Neutrophils # 12.1 K/mm3 (1.8-7.8); Neutrophils % 74.2 % (37.0-80.0); Platelet Count 285 K/mm3 (142-424); Red Blood Count 4.46 M/mm3 (4.20-5.40); Red Cell Distribution Width 13.7 % (11.5-17.5); White Blood Count 16.3 K/mm3 (4.8-10.8)
[2018-05-22 09:45] LABS: MANUAL DIFFERENTIAL MANUAL DIFFERENTIAL (MANUAL DIFF)
[2018-05-22 11:11] LABS: Alanine Aminotransferase 23 U/L (12-78); Albumin Level 2.8 gm/dL (3.4-5.0); Albumin/Globulin Ratio 0.9 (1.1-1.8); Alkaline Phosphatase 113 U/L (46-116); Anion Gap 11.2 mEq/L (5-15); Aspartate Amino Transferase 6 U/L (15-37); Bilirubin,Total 0.6 mg/dL (0.2-1.0); Blood Urea Nitrogen 11 mg/dL (7-18); Calcium 8.5 mg/dL (8.5-10.1); Carbon Dioxide 31 mmol/L (21.0-32.0); Chloride 103 mmol/L (98-107); Estimated Glomerular Filt Rate 71 ml/min (>60); GFR (African American) 86 ML/MIN (>60); Glucose 92 mg/dL (74-106); Potassium 4.2 mmoL/L (3.5-5.1); Sodium 141 mmol/L (136-145); Total Protein,Serum 5.8 gm/dL (6.4-8.2)
[2018-05-22 12:04] LABS: Eosinophils % 1 % (0-3); Lymphocytes % 27 % (10-50); Monocytes % 3 % (2-9); Neutrophils % 68 % (42-76); Platelet Estimate Normal; RBC Morphology Normal; Total Cells Counted 100
== END ==
PROVIDERS: Visit Provider Surgery
DX: J44.1 Chronic obstructive pulmonary disease with (acute) exacerbation (principal); R10.11 Right upper quadrant pain
CPT/HCPCS: 36415; 80053; 85007; 85025

== ENCOUNTER → 2018-05-24 07:27 | Outpatient (CLI) | payer MEDICARE, SELFPAY ==
[2018-05-24 08:25] LABS: Basophils % 0.3 % (0.1-2.0); Eosinophils # 0.1 K/mm3 (0.0-0.4); Hematocrit 43.9 % (37.0-47.0); Hemoglobin 13.9 g/dL (12.2-16.2); Lymphocytes # 2.9 K/mm3 (0.7-4.5); Lymphocytes % 21.6 % (10-50); Mean Corpuscular HGB Conc 31.6 g/dL (31.8-35.4); Mean Corpuscular Hemoglobin 30.6 pg (27.0-31.2); Mean Corpuscular Volume 96.8 fl (81-99); Mean Platelet Volume 7.1 fl (7.4-10.4); Monocytes # 0.6 K/mm3 (0.1-1.0); Monocytes % 4.5 % (1.7-9.3); Neutrophils # 9.9 K/mm3 (1.8-7.8); Neutrophils % 72.6 % (37.0-80.0); Platelet Count 305 K/mm3 (142-424); Red Blood Count 4.53 M/mm3 (4.20-5.40); Red Cell Distribution Width 13.8 % (11.5-17.5); White Blood Count 13.6 K/mm3 (4.8-10.8)
== END ==
PROVIDERS: Visit Provider Surgery
DX: R10.11 Right upper quadrant pain (principal); Z01.818 Encounter for other preprocedural examination
CPT/HCPCS: 36415; 85025

== ENCOUNTER → 2018-05-31 10:44 | Outpatient (CLI) | payer MEDICARE, SELFPAY | PROVIDERS: PCP Family Medicine; Visit Provider Surgery | DX: Z12.11 Encounter for screening for malignant neoplasm of colon (principal) | CPT/HCPCS: 93005 ==

== ENCOUNTER → 2018-07-12 07:33 | Outpatient (CLI) | payer MEDICARE, SELFPAY ==
[2018-07-12 10:00] LABS: Alanine Aminotransferase 18 U/L (12-78); Albumin Level 3.1 gm/dL (3.4-5.0); Alkaline Phosphatase 144 U/L (46-116); Aspartate Amino Transferase 8 U/L (15-37); Bilirubin,Direct 0.1 mg/dL (0.0-0.2); Bilirubin,Indirect 0.3 mg/dL (0.0-0.9); Bilirubin,Total 0.4 mg/dL (0.2-1.0); Chol/HDL Ratio 4.9 (1-3.5); Cholesterol 171 mg/dL (140-200); HDL Cholesterol 35 mg/dL (29-89); LDL Cholesterol 110 mg/dL (0-130); Total Protein,Serum 6.4 gm/dL (6.4-8.2); Triglycerides 131 mg/dL (30-200); VLDL Cholesterol 26 mg/dL (0-40)
== END ==
PROVIDERS: Visit Provider Internal Medicine Cardiovascular Disease
DX: E78.5 Hyperlipidemia, unspecified (principal); I11.9 Hypertensive heart disease without heart failure; I25.10 Atherosclerotic heart disease of native coronary artery without angina pectoris; I27.20 Pulmonary hypertension, unspecified; Z72.0 Tobacco use
CPT/HCPCS: 36415; 80061; 80076

== ENCOUNTER → 2018-08-23 07:48 | Outpatient (CLI) | payer MEDICARE, SELFPAY ==
[2018-08-23 09:33] LABS: Alanine Aminotransferase 14 U/L (12-78); Albumin Level 3.1 gm/dL (3.4-5.0); Alkaline Phosphatase 166 U/L (46-116); Aspartate Amino Transferase 8 U/L (15-37); Bilirubin,Direct 0.1 mg/dL (0.0-0.2); Bilirubin,Indirect 0.5 mg/dL (0.0-0.9); Bilirubin,Total 0.6 mg/dL (0.2-1.0); Chol/HDL Ratio 4.2 (1-3.5); Cholesterol 152 mg/dL (140-200); HDL Cholesterol 36 mg/dL (29-89); LDL Cholesterol 96 mg/dL (0-130); Total Protein,Serum 6.3 gm/dL (6.4-8.2); Triglycerides 101 mg/dL (30-200); VLDL Cholesterol 20 mg/dL (0-40)
== END ==
PROVIDERS: Visit Provider Urology
DX: I11.9 Hypertensive heart disease without heart failure (principal); I25.10 Atherosclerotic heart disease of native coronary artery without angina pectoris; I27.20 Pulmonary hypertension, unspecified; J44.9 Chronic obstructive pulmonary disease, unspecified; Z72.0 Tobacco use
CPT/HCPCS: 36415; 80061; 80076

== ENCOUNTER → 2018-10-03 08:28 | Outpatient (CLI) | payer MEDICARE, SELFPAY ==
--- NOTE | 2018-10-03 08:40 | FL_ITS ---
FL barium enema w air contrast CLINICAL INDICATION: ITS.REASON: history of polyps / history of colitis ORDERING PHYSICIAN: Krystian Herring MD PATIENT AGE: 73 years Comparison: None Fluoroscopy time: 2 minutes 55 seconds FINDINGS: Arc Air Operator exam shows surgical clips in the right upper quadrant. The colon is visualized from rectum to cecum. The terminal ileum and appendix are not identified. No annular constricting lesions. No fixed polypoid filling defects. There are diverticula [place]:. No evidence of diverticulitis. No mucosal amount is apparent. IMPRESSION: Diverticulosis of the sigmoid colon otherwise negative air-contrast barium enema
== END ==
PROVIDERS: PCP Family Medicine; Visit Provider Surgery
DX: K52.9 Noninfective gastroenteritis and colitis, unspecified (principal); Z86.010 Personal history of colon polyps
CPT/HCPCS: 74280

== ENCOUNTER 2018-11-28 08:35 | Day surgery (SDC) | payer MEDICARE, SELFPAY ==
[2018-11-28 08:51] VITALS: BP 148/71; PULSE 80; RESP 18; TEMP 36.9; O2SAT 97; BMI 29.2
== END 2018-11-28 10:27 | disposition home or self-care (01) ==
LOC: OUTP 08:37
PROVIDERS: PCP Family Medicine; Visit Provider Ophthalmology
PROC: (CPT 66821; principal; 2018-11-28 10:00)
DX: H26.40 Unspecified secondary cataract (principal)
CPT/HCPCS: 66821

== ENCOUNTER → 2019-01-26 08:51 | Outpatient (CLI) | payer MEDICARE, SELFPAY ==
--- NOTE | 2019-01-26 08:54 | US_ITS ---
US liver HISTORY: ITS.REASON: ELEVATED ALKALINE PHOSPHATASE ORDERING PHYSICIAN: Charlotte Byrne APRN PATIENT AGE: 73 years COMPARISON: 05/01/2018 FINDINGS: PANCREAS:Unremarkable. No obvious mass or abnormal fluid collection. No ductal dilatation LIVER:There are a few very areas within the liver. No focal liver lesion or biliary ductal dilatation is evident. There is appropriate direction of blood flow within the portal vein. No perihepatic fluid. RIGHT KIDNEY:Unremarkable. Normal size and echogenicity. No hydronephrosis LEFT KIDNEY:Not imaged GALLBLADDER:Prior cholecystectomy. Common bile duct is normal at 3 mm. IMPRESSION: Prior cholecystectomy. No biliary ductal dilatation. There is some mild fatty liver changes
== END ==
PROVIDERS: PCP Family Medicine; Visit Provider Nurse Practitioner Family
DX: R74.8 Abnormal levels of other serum enzymes (principal)
CPT/HCPCS: 76705

== ENCOUNTER 2019-03-05 09:52 | Observation (INO) ==
--- NOTE | 2019-03-05 10:41 | Pharmacy Consult Notes ---
[facility] Pharmacy VTE Monitoring - Patient Demographics Admission date: 03/05/19 Report Date: 03/05/19 Time: 10:41 Allergies/Adverse Reactions: Patient Allergies Penicillins Allergy (Severe, Verified 11/28/18 08:48) I-RASH AND DIFFICULTY BREATHING oxycodone [From PERCOCET] Allergy (Unknown, Verified 11/28/18 08:48) Rash acetaminophen [From PERCOCET] Adverse Reaction (Unknown, Verified 11/28/18 08:48) Gastrointestinal Upset codeine Adverse Reaction (Unknown, Verified 11/28/18 08:48) keeps her awake Height: 1.47 m Weight: 70.874 kg - VTE Risk VTE Score: 5 VTE Risk Level: Low Risk - Prophylaxis VTE Prophylaxis Ordered?: Yes Types of VTE Prophylaxis: TEDS Knee High Location of Applied Device: Bilateral Lower Extremeties - VTE Diagnosis Confirmed Treatment or plan recommended: Continue Current Treatment
[2019-03-05 10:56] LABS: ABG Base Excess 5.8 mmol/L (-2.4-2.3); ABG HCO3 30.1 mmhg (22.0-26.0); ABG Oxygen Saturation 92 % (90-100); ABG PCO2 46.6 mmhg (35.0-45.0); ABG PH 7.43 mmol/L (7.35-7.45); ABG PO2 60.9 mmhg (80-100); ABG TCO2 31.5 mmhg (23-27)
[2019-03-05 10:57] LABS: Allen's Test acceptable; Oxygen 2 lpm %
[2019-03-05 11:38] LABS: Basophils # 0.1 K/mm3 (0-0.2); Basophils % 0.3 % (0.1-2.0); Eosinophils % 0.2 % (0.1-12.0); Hematocrit 45.4 % (37.0-47.0); Hemoglobin 14.7 g/dL (12.2-16.2); Lymphocytes # 0.9 K/mm3 (0.7-4.5); Lymphocytes % 5.4 % (10-50); Mean Corpuscular HGB Conc 32.3 g/dL (31.8-35.4); Mean Corpuscular Volume 93.3 fl (81-99); Mean Platelet Volume 6.6 fl (7.4-10.4); Monocytes # 0.7 K/mm3 (0.1-1.0); Neutrophils # 15.1 K/mm3 (1.8-7.8); Neutrophils % 90.1 % (37.0-80.0); Platelet Count 544 K/mm3 (142-424); Red Blood Count 4.87 M/mm3 (4.20-5.40); Red Cell Distribution Width 13.4 % (11.5-17.5); White Blood Count 16.8 K/mm3 (4.8-10.8)
[2019-03-05 11:46] LABS: Anion Gap 12.4 mEq/L (5-15); Calcium 8.6 mg/dL (8.5-10.1)
[2019-03-05 14:23] LABS: Lymphocytes % 5 % (10-50); Monocytes % 1 % (2-9); Neutrophils % 94 % (42-76); Total Cells Counted 100
[2019-03-05 14:24] LABS: RBC Morphology Normal
--- NOTE | 2019-03-05 16:04 | History & Physical Report ---
*Admission Date: 03/05/19 *Chief complaint: Shortness of breath *History of present illness: 73-year-old female presented to the office for the third time in 6 days today with shortness of breath. Patient had initially been seen on February 28 and diagnosed with a COPD exacerbation and at that time began treatment with clarithromycin and oral steroids. Patient return to the office 48 hours later stating she was feeling worse. At that time patient had room air pulse oximetry of 94%, normal heart rate, and lung exam that included rhonchi with good aeration. Patient was advised to use supplemental oxygen and continue her course of treatment with breathing treatments every 4 hours. Over the weekend she gradually worsened and return to the office today. Today in the office O2 sats were in the mid to high 80s with the use of supplemental oxygen. Lung exam had worsened and now included more wheezing in addition to the rhonchi. Decision was made to admit the patient for inpatient treatment of COPD exacerbation that had failed outpatient care. [facility] History I have reviewed the patient's past medical history: Yes Medical History: Reports:: Asthma, Congestive Heart Failure, Chronic Obstructive Pulmonary Disease (COPD), Coronary Artery Disease, Gastroesophageal Reflux Disease(GERD), Hyperlipidemia, Hypertension, Lung Disease (COPD) Denies:: Cancer, Diabetes Mellitus Type 1, Diabetes Mellitus Type 2, Internal Pacemaker, MRSA, Seizures *Have you ever received a pneumonia vaccine?: Yes *Have you received a flu vaccine this season?: Yes Other Medical History: Reports: Arthritis. Denies: Blood Transfusion Reaction Laterality Cases: Bilateral: Breast Biopsy, Other Other Surgeries: Yes: Angioplasty, Appendectomy, Cholecystectomy, Colonoscopy, Dilation and Curettage, Hysterectomy-Total, Tubal Ligation, Other. No: Pacemaker Amputation: No Fractures: No - *Social History Educational Level: Completed High School Smoking Status: Current every day smoker Tobacco Type: cigarettes # Packs/Day (cigarettes): 1 Alcohol Intake: never Alcohol Intake Frequency:: other Substance Use Type: denies use *Occupational Status:: retired Housing: house Household Members: family *Travel in the last 8 weeks: None Family Hx:: Coronary Artery Disease, Diabetes, Heart Attack, Hyperlipidemia, Hypertension Review of Systems - Constitutional Reports fatigue, Reports weakness, Denies body ache(s), Denies chills, Denies fever(s) - *Cardiovascular Denies chest pain - *Respiratory Reports change in phlegm color, Reports chest congestion, Reports cough, Reports shortness of breath, Reports shortness of breath with activity, Reports wheezing Meds Home Medications Medication Instructions Recorded Confirmed Type carvedilol 6.25 mg tablet 3.125 mg PO BID 07/07/17 03/05/19 History cholecalciferol (vitamin D3) 2,000 2,000 unit PO DAILY 07/07/17 03/05/19 History unit capsule furosemide 40 mg tablet 40 mg PO DAILY tab 07/07/17 03/05/19 History loratadine 10 mg tablet 10 mg PO DAILY 07/07/17 03/05/19 History montelukast 10 mg tablet 10 mg PO HS 07/07/17 03/05/19 History multivitamin tablet 1 tab PO DAILY 07/07/17 03/05/19 History omeprazole 20 mg capsule,delayed 20 mg PO DAILY 07/07/17 03/05/19 History release losartan 25 mg tablet 25 mg PO DAILY tab 01/05/18 03/05/19 History RX: Fluticasone Propionate 1 spray NOSTRIL-B DAILY 01/24/18 03/05/19 History [Flonase 50mcg nasal spray 16gm] RX: Fluticasone/Vilanterol [Breo 1 each IH DAILY 01/24/18 03/05/19 History Ellipta 200-25 Mcg INH] RX: Hydrocod/Acet 5/325 mg [[place] 1 tab PO Q6HP PRN 01/24/18 03/05/19 History 5/325mg tablet] RX: Ipratropium/Albuterol Sulfate 3 ml IH Q6H 01/24/18 03/05/19 History [Iprat-Albut 0.5-3(2.5) mg/3 ml] RX: Potassium Chloride [Klor-Con 10 meq PO DAILY 01/24/18 03/05/19 History 10mEq tab] Ondansetron HCl [Zofran 4mg Tab] 4 mg PO Q8HP PRN #10 tab 05/01/18 03/05/19 Rx Albuterol Sulfate [Albuterol 1.25 mg IH NEEDED PRN 06/21/18 03/05/19 History 0.042% 1.25mg/3mL neb] RX: Atorvastatin Calcium 20 mg PO HS 11/27/18 03/05/19 History [Atorvastatin 20mg Tab] Allergies Allergy/AdvReac Type Severity Reaction Status Date / Time Penicillins Allergy Severe I-RASH AND Verified 11/28/18 08:48 DIFFICULTY BREATHING oxycodone [From PERCOCET] Allergy Unknown Rash Verified 11/28/18 08:48 acetaminophen [From PERCOCET] AdvReac Unknown Gastrointestinal Verified 11/28/18 08:48 Upset codeine AdvReac Unknown keeps her Verified 11/28/18 08:48 awake Exam Vital signs and Labs for Last 24 Hours: Temp Pulse Resp BP Pulse Ox 98.5 F 80 23 134/87 94 L 03/05/19 10:32 03/05/19 11:19 03/05/19 10:32 03/05/19 10:32 03/05/19 10:32 Laboratory Results - last 24 hr 03/05/19 10:23: Specimen Source l. radial, O2 % 2 lpm, ABG pH 7.43, ABG pCO2 46.6 H, ABG pO2 60.9 L, ABG HCO3 30.1 H, ABG Total CO2 31.5 H, ABG O2 Saturation 92, ABG Base Excess 5.8 H, Jean Test acceptable 03/05/19 11:19: WBC 16.8 H, RBC 4.87, Hgb 14.7, Hct 45.4, MCV 93.3, MCH 30.2, MCHC 32.3, RDW 13.4, Plt Count 544 H, MPV 6.6 L, Neut % (Auto) 90.1 H, Lymph % (Auto) 5.4 L, [place] % (Auto) 4.0, Eos % (Auto) 0.2, Baso % (Auto) 0.3, Neut # (Auto) 15.1 H, Lymph # (Auto) 0.9, [place] # (Auto) 0.7, Eos # (Auto) 0.0, Baso # (Auto) 0.1, Total Counted 100, Neutrophils % (Manual) 94 H, Lymphocytes % (Manual) 5 L, Monocytes % (Manual) 1 L, Platelet Estimate Slight increase, RBC Morphology Normal 03/05/19 11:19: Sodium 139, Potassium 3.4 L, Chloride 99, Carbon Dioxide 31, Anion Gap 12.4, BUN 25 H, Creatinine 1.08 H, Estimated Creat Clear 53, Estimated GFR 50 L, Est GFR ( Amer) 61, Glucose 128 H, Calcium 8.6 03/05/19 11:19: Mycoplasma pneumon IgM Non-reactive I & O for Last 24 hours: Intake & Output 03/03/19 03/04/19 03/05/19 03/06/19 11:59 11:59 11:59 11:59 Intake Total 120 / 120 Balance 120 / 120 Weight 156 lb 4 oz Narrative: Patient is appears weak with mild increased work of breathing. ENT exam is significant for dry mucous membranes. Nasal cannula is in place. Neck has no lymphadenopathy. Lungs have poor aeration with expiratory wheezes and inspiratory and expiratory rhonchi. Heart has a regular rate and rhythm. Abdomen is soft. Extremities are warm to the touch and have no edema. There is no gross neurologic deficits Assessment and Plan (1) COPD with exacerbation Current visit: No Status: Acute Category: Medical Code(s): J44.1 - Chronic obstructive pulmonary disease with (acute) exacerbation (2) Failure of outpatient treatment Current visit: No Status: Acute Category: Medical Code(s): Z78.9 - Other specified health status (3) Hypertensive heart disease Current visit: No Status: Chronic Qualifiers: Heart failure presence: without heart failure Qualified Code(s): I11.9 - Hypertensive heart disease without heart failure Category: Medical Code(s): I11.9 - Hypertensive heart disease without heart failure (4) Pulmonary hypertension Current visit: No Status: Chronic Category: Medical Code(s): I27.20 - Pulmonary hypertension, unspecified (5) Tobacco user Current visit: No Status: Chronic Category: Medical Code(s): Z72.0 - Tobacco use - Assessment and plan all Dx Assessment and Plan for all problems:: Patient has been admitted for IV antibiotics and IV steroids along with duo nebs. She will be given a nicotine patch. Continue other home medications.
--- NOTE | 2019-03-06 07:15 | Progress Note ---
Internal Medicine - PN: Subj *Date: 03/06/19 *Time: 07:14 Interval history: Patient reports feeling better. She is breathing easier and suspects this is because of the increased oxygen flow rate being used in the hospital. Patient uses 2 L of oxygen via nasal cannula when she is at home and distressed. When she was admitted she was started on 3-1/2 L/min and that has subsequently been weaned to 3 L/min. Patient slept well overnight. Sputum culture has shown gram-positive cocci in pairs and in clusters Exam Vital signs and Labs for Last 24 Hours: Temp Pulse Resp BP Pulse Ox 97.5 F L 89 18 158/87 H 91 L 03/06/19 04:00 03/06/19 05:38 03/06/19 04:00 03/06/19 04:00 03/06/19 04:00 Laboratory Results - last 24 hr 03/05/19 10:23: Specimen Source l. radial, O2 % 2 lpm, ABG pH 7.43, ABG pCO2 46.6 H, ABG pO2 60.9 L, ABG HCO3 30.1 H, ABG Total CO2 31.5 H, ABG O2 Saturation 92, ABG Base Excess 5.8 H, Jean Test acceptable 03/05/19 11:19: WBC 16.8 H, RBC 4.87, Hgb 14.7, Hct 45.4, MCV 93.3, MCH 30.2, MCHC 32.3, RDW 13.4, Plt Count 544 H, MPV 6.6 L, Neut % (Auto) 90.1 H, Lymph % (Auto) 5.4 L, [place] % (Auto) 4.0, Eos % (Auto) 0.2, Baso % (Auto) 0.3, Neut # (Auto) 15.1 H, Lymph # (Auto) 0.9, [place] # (Auto) 0.7, Eos # (Auto) 0.0, Baso # (Auto) 0.1, Total Counted 100, Neutrophils % (Manual) 94 H, Lymphocytes % (Manual) 5 L, Monocytes % (Manual) 1 L, Platelet Estimate Slight increase, RBC Morphology Normal 03/05/19 11:19: Sodium 139, Potassium 3.4 L, Chloride 99, Carbon Dioxide 31, Anion Gap 12.4, BUN 25 H, Creatinine 1.08 H, Estimated Creat Clear 53, Estimated GFR 50 L, Est GFR ( Amer) 61, Glucose 128 H, Calcium 8.6 03/05/19 11:19: Mycoplasma pneumon IgM Non-reactive I & O for Last 24 hours: Intake & Output 03/03/19 03/04/19 03/05/19 03/06/19 11:59 11:59 11:59 11:59 Intake Total 240 / 240 Balance 240 / 240 Weight 156 lb 4 oz 156 lb 3 oz Microbiology Reports for the Last 24 Hours: Microbiology 03/05/19 18:30 Sputum - Expectorated Sputum Gram Stain - Final Narrative: Patient looks comfortable this morning. Lung exam is significant for diffuse end expiratory wheezes. Rhonchi have cleared. Heart has a regular rate and rhythm. Assessment and Plan (1) COPD with exacerbation Current visit: No Status: Acute Category: Medical Code(s): J44.1 - Chronic obstructive pulmonary disease with (acute) exacerbation (2) Failure of outpatient treatment Current visit: No Status: Acute Category: Medical Code(s): Z78.9 - Other specified health status (3) Hypertensive heart disease Current visit: No Status: Chronic Qualifiers: Heart failure presence: without heart failure Qualified Code(s): I11.9 - Hypertensive heart disease without heart failure Category: Medical Code(s): I11.9 - Hypertensive heart disease without heart failure (4) Pulmonary hypertension Current visit: No Status: Chronic Category: Medical Code(s): I27.20 - Pulmonary hypertension, unspecified (5) Tobacco user Current visit: No Status: Chronic Category: Medical Code(s): Z72.0 - Tobacco use - Assessment and plan all Dx Assessment and Plan for all problems:: 1. Continue IV antibiotics and steroids. Await CBC this morning.
[2019-03-06 08:36] LABS: Basophils % 0.2 % (0.1-2.0); Eosinophils % 0.2 % (0.1-12.0); Hematocrit 45.2 % (37.0-47.0); Hemoglobin 14.4 g/dL (12.2-16.2); Lymphocytes # 0.8 K/mm3 (0.7-4.5); Lymphocytes % 6.8 % (10-50); Mean Corpuscular HGB Conc 31.9 g/dL (31.8-35.4); Mean Platelet Volume 6.6 fl (7.4-10.4); Monocytes # 0.5 K/mm3 (0.1-1.0); Monocytes % 3.7 % (1.7-9.3); Neutrophils % 89.2 % (37.0-80.0); Platelet Count 494 K/mm3 (142-424); Red Blood Count 4.81 M/mm3 (4.20-5.40); Red Cell Distribution Width 13.2 % (11.5-17.5); White Blood Count 12.4 K/mm3 (4.8-10.8)
[2019-03-06 11:30] LABS: Lymphocytes % 7 % (10-50); Monocytes % 3 % (2-9); Neutrophils % 90 % (42-76); Total Cells Counted 100
--- NOTE | 2019-03-06 14:43 | Pharmacy Consult Notes ---
- Pharmacy Consult Date: 03/06/19 Time: 07:30 Referring provider: JOSIE Reason for Consult:: VANCOMYCIN CONSULT Allergies and ADEs:: Allergies Allergy/AdvReac Type Severity Reaction Status Date / Time Penicillins Allergy Severe I-RASH AND Verified 11/28/18 08:48 DIFFICULTY BREATHING oxycodone [From PERCOCET] Allergy Unknown Rash Verified 11/28/18 08:48 acetaminophen [From PERCOCET] AdvReac Unknown Gastrointestinal Verified 11/28/18 08:48 Upset codeine AdvReac Unknown keeps her Verified 11/28/18 08:48 awake Home Medications:: Home Medications Medication Instructions Recorded Confirmed Type carvedilol 6.25 mg tablet 6.25 mg PO BID 07/07/17 03/06/19 History cholecalciferol (vitamin D3) 2,000 2,000 unit PO DAILY 07/07/17 03/05/19 History unit capsule furosemide 40 mg tablet 40 mg PO DAILY tab 07/07/17 03/05/19 History loratadine 10 mg tablet 10 mg PO DAILY 07/07/17 03/05/19 History montelukast 10 mg tablet 10 mg PO HS 07/07/17 03/05/19 History multivitamin tablet 1 tab PO DAILY 07/07/17 03/05/19 History omeprazole 20 mg capsule,delayed 20 mg PO DAILY 07/07/17 03/05/19 History release losartan 25 mg tablet 12.5 mg PO DAILY tab 01/05/18 03/06/19 History Fluticasone Propionate [Flonase 1 spray NOSTRIL-B DAILY 01/24/18 03/05/19 History 50mcg nasal spray 16gm] Fluticasone/Vilanterol [Breo 1 each IH DAILY 01/24/18 03/05/19 History Ellipta 200-25 Mcg INH] Hydrocod/Acet 5/325 mg [[place] 1 tab PO Q6HP PRN 01/24/18 03/05/19 History 5/325mg tablet] Ipratropium/Albuterol Sulfate 3 ml IH Q6H 01/24/18 03/05/19 History [Iprat-Albut 0.5-3(2.5) mg/3 ml] Potassium Chloride [Klor-Con 10mEq 10 meq PO DAILY 01/24/18 03/05/19 History tab] Ondansetron HCl [Zofran 4mg Tab] 4 mg PO Q8HP PRN #10 tab 05/01/18 03/05/19 Rx Albuterol Sulfate [Albuterol 1.25 mg IH NEEDED PRN 06/21/18 03/05/19 History 0.042% 1.25mg/3mL neb] Atorvastatin Calcium [Atorvastatin 20 mg PO HS 11/27/18 03/05/19 History 20mg Tab] Height: 1.47 m Weight: 70.845 kg Laboratory Results:: Laboratory Results - last 24 hr 03/05/19 11:19: Mycoplasma pneumon IgM Non-reactive 03/06/19 08:03: WBC 12.4 H D, RBC 4.81, Hgb 14.4, Hct 45.2, MCV 94.0, MCH 29.9, MCHC 31.9, RDW 13.2, Plt Count 494 H, MPV 6.6 L, Neut % (Auto) 89.2 H, Lymph % (Auto) 6.8 L, [place] % (Auto) 3.7, Eos % (Auto) 0.2, Baso % (Auto) 0.2, Neut # (Auto) 11.0 H, Lymph # (Auto) 0.8, [place] # (Auto) 0.5, Eos # (Auto) 0.0, Baso # (Auto) 0.0, Total Counted 100, Neutrophils % (Manual) 90 H, Lymphocytes % (Manual) 7 L, Monocytes % (Manual) 3, Platelet Estimate Slight increase Medical History: Reports:: Asthma, Congestive Heart Failure, Chronic Obstructive Pulmonary Disease (COPD), Coronary Artery Disease, Gastroesophageal Reflux Disease(GERD), Hyperlipidemia, Hypertension, Lung Disease (COPD) Denies:: Cancer, Diabetes Mellitus Type 1, Diabetes Mellitus Type 2, Internal Pacemaker, MRSA, Seizures Assessment and Plan (1) COPD with exacerbation Current visit: No Status: Acute Category: Medical Code(s): J44.1 - Chronic obstructive pulmonary disease with (acute) exacerbation (2) Failure of outpatient treatment Current visit: No Status: Acute Category: Medical Code(s): Z78.9 - Other specified health status (3) Hypertensive heart disease Current visit: No Status: Chronic Qualifiers: Heart failure presence: without heart failure Qualified Code(s): I11.9 - Hypertensive heart disease without heart failure Category: Medical Code(s): I11.9 - Hypertensive heart disease without heart failure (4) Pulmonary hypertension Current visit: No Status: Chronic Category: Medical Code(s): I27.20 - Pulmonary hypertension, unspecified (5) Tobacco user Current visit: No Status: Chronic Category: Medical Code(s): Z72.0 - Tobacco use - Assessment and plan all Dx Assessment and Plan for all problems:: PHARMACY CONSULTED TO DOSE AND MONITOR VANCOMYCIN THERAPY. PT ALSO RECEIVING ROCEPHIN AND ZITHROMAX DAILY. WILL START VANCOMYCIN 1500MG IV DAILY. WILL FOLLOW AND ADJUST DOSE BASED ON LEVELS.
[2019-03-07 07:14] LABS: Basophils % 0.1 % (0.1-2.0); Eosinophils % 0.1 % (0.1-12.0); Hematocrit 42.4 % (37.0-47.0); Hemoglobin 13.6 g/dL (12.2-16.2); Lymphocytes # 0.7 K/mm3 (0.7-4.5); Lymphocytes % 5.3 % (10-50); Mean Corpuscular Volume 93.8 fl (81-99); Mean Platelet Volume 6.6 fl (7.4-10.4); Monocytes # 0.5 K/mm3 (0.1-1.0); Neutrophils # 11.3 K/mm3 (1.8-7.8); Neutrophils % 90.5 % (37.0-80.0); Platelet Count 407 K/mm3 (142-424); Red Blood Count 4.52 M/mm3 (4.20-5.40); Red Cell Distribution Width 13.3 % (11.5-17.5); White Blood Count 12.5 K/mm3 (4.8-10.8)
--- NOTE | 2019-03-07 07:51 | Progress Note ---
Internal Medicine - PN: Subj *Date: 03/07/19 *Time: 07:50 Interval history: Patient states she is feeling better. She still has some shortness of breath with exertion. She still endorses significant chest congestion but very little sputum production Exam Vital signs and Labs for Last 24 Hours: Temp Pulse Resp BP Pulse Ox 98.3 F 73 18 149/80 H 91 L 03/07/19 04:00 03/07/19 05:47 03/07/19 04:00 03/07/19 04:00 03/07/19 06:49 Laboratory Results - last 24 hr 03/06/19 08:03: WBC 12.4 H D, RBC 4.81, Hgb 14.4, Hct 45.2, MCV 94.0, MCH 29.9, MCHC 31.9, RDW 13.2, Plt Count 494 H, MPV 6.6 L, Neut % (Auto) 89.2 H, Lymph % (Auto) 6.8 L, [place] % (Auto) 3.7, Eos % (Auto) 0.2, Baso % (Auto) 0.2, Neut # (Auto) 11.0 H, Lymph # (Auto) 0.8, [place] # (Auto) 0.5, Eos # (Auto) 0.0, Baso # (Auto) 0.0, Total Counted 100, Neutrophils % (Manual) 90 H, Lymphocytes % (Manual) 7 L, Monocytes % (Manual) 3, Platelet Estimate Slight increase 03/07/19 06:45: WBC 12.5 H, RBC 4.52, Hgb 13.6, Hct 42.4, MCV 93.8, MCH 30.1, MCHC 32.0, RDW 13.3, Plt Count 407, MPV 6.6 L, Neut % (Auto) 90.5 H, Lymph % (Auto) 5.3 L, [place] % (Auto) 4.0, Eos % (Auto) 0.1, Baso % (Auto) 0.1, Neut # (Auto) 11.3 H, Lymph # (Auto) 0.7, [place] # (Auto) 0.5, Eos # (Auto) 0.0, Baso # (Auto) 0.0 I & O for Last 24 hours: Intake & Output 03/04/19 03/05/19 03/06/19 03/07/19 11:59 11:59 11:59 11:59 Intake Total 360 / 360 1225 / 1225 Balance 360 / 360 1225 / 1225 Weight 156 lb 4 oz 156 lb 3 oz 156 lb 5 oz Microbiology Reports for the Last 24 Hours: Microbiology 03/05/19 18:30 Sputum - Expectorated Sputum Gram Stain - Final 03/05/19 18:30 Sputum - Expectorated Sputum Sputum Culture - Preliminary Narrative: Patient is in no distress. Heart has a regular rate and rhythm. Lungs have fair aeration with continued end expiratory wheezing unchanged since yesterday Assessment and Plan (1) COPD with exacerbation Current visit: No Status: Acute Category: Medical Code(s): J44.1 - Chronic obstructive pulmonary disease with (acute) exacerbation (2) Failure of outpatient treatment Current visit: No Status: Acute Category: Medical Code(s): Z78.9 - Other specified health status (3) Hypertensive heart disease Current visit: No Status: Chronic Qualifiers: Heart failure presence: without heart failure Qualified Code(s): I11.9 - Hypertensive heart disease without heart failure Category: Medical Code(s): I11.9 - Hypertensive heart disease without heart failure (4) Pulmonary hypertension Current visit: No Status: Chronic Category: Medical Code(s): I27.20 - Pulmonary hypertension, unspecified (5) Tobacco user Current visit: No Status: Chronic Category: Medical Code(s): Z72.0 - Tobacco use - Assessment and plan all Dx Assessment and Plan for all problems:: Continue current care. Patient is being weaned back to her baseline level of oxygen at 2 L/min. I will decrease steroids today
[2019-03-07 07:58] LABS: Lymphocytes % 5 % (10-50); Monocytes % 5 % (2-9); Neutrophils % 87 % (42-76); Total Cells Counted 100
--- NOTE | 2019-03-08 06:47 | Discharge Summary ---
General - General Admission date:: 03/05/19 Discharge date: 03/08/19 HPI HPI: 73-year-old female presented to the office for the third time in 6 days today with shortness of breath. Patient had initially been seen on February 28 and diagnosed with a COPD exacerbation and at that time began treatment with clarithromycin and oral steroids. Patient return to the office 48 hours later stating she was feeling worse. At that time patient had room air pulse oximetry of 94%, normal heart rate, and lung exam that included rhonchi with good aeration. Patient was advised to use supplemental oxygen and continue her course of treatment with breathing treatments every 4 hours. Over the weekend she gradually worsened and return to the office today. Today in the office O2 sats were in the mid to high 80s with the use of supplemental oxygen. Lung exam had worsened and now included more wheezing in addition to the rhonchi. Decision was made to admit the patient for inpatient treatment of COPD exacerbation that had failed outpatient care. Hospital Course Hospital Course: Patient was admitted and placed on IV Rocephin and azithromycin along with IV Solu-Medrol, duo nebs every 4 hours for her COPD exacerbation. Chest x-ray ruled out pneumonia. Blood cultures were negative. At the time of this dictation sputum culture has not finalized. Patient responded well to treatments plus the addition of increased supplemental oxygen at 3-1/2 L/min. Patient gradually improved a little each day with reduction in rhonchi and wheezing while simultaneously being weaned back to her baseline level of oxygen of 2 L/min. On the patient had improved enough for discharge. She was discharged home. She will finish a steroid taper as an outpatient. Patient will follow-up in my office on March 15 at 8 AM. Objective Vital signs: Temp Pulse Resp BP Pulse Ox 98.1 F 84 20 130/72 90 L 03/08/19 04:00 03/08/19 05:44 03/08/19 04:00 03/08/19 04:00 03/08/19 05:44 Narrative: Patient looks well and sitting up in bed. Color is good. Results Labs on day of discharge: Labs from last 24 hours 03/07/19 06:45 WBC 12.5 H RBC 4.52 Hgb 13.6 Hct 42.4 MCV 93.8 MCH 30.1 MCHC 32.0 RDW 13.3 Plt Count 407 MPV 6.6 L Neut % (Auto) 90.5 H Lymph % (Auto) 5.3 L [place] % (Auto) 4.0 Eos % (Auto) 0.1 Baso % (Auto) 0.1 Neut # (Auto) 11.3 H Lymph # (Auto) 0.7 [place] # (Auto) 0.5 Eos # (Auto) 0.0 Baso # (Auto) 0.0 Total Counted 100 Neutrophils % (Manual) 87 H Band Neutrophils % 3.0 Lymphocytes % (Manual) 5 L Monocytes % (Manual) 5 Platelet Estimate Normal Preliminary micro results at discharge 03/05/19 11:19 Blood Culture - Preliminary Blood NO GROWTH AFTER 48 HOURS 03/05/19 11:19 Blood Culture - Preliminary Blood NO GROWTH AFTER 48 HOURS 03/05/19 18:30 Sputum Culture - Preliminary Sputum - Expectorated Sputum DS: Diagnosis - Discharge Diagnosis (1) COPD with exacerbation Status: Acute (2) Failure of outpatient treatment Status: Acute (3) Hypertensive heart disease Status: Chronic (4) Pulmonary hypertension Status: Chronic (5) Tobacco user Status: Chronic Discharge Plan - Patient Discharge Instructions ACTIVITY: Continue current activity DIET: continue same diet Patient Instructions: DI for Chronic Obstructive Pulmonary Disease, How to Quit Smoking - Follow up Plan Follow up with: Mike Harp MD [Primary Care Provider] - Disposition: Home, Self-Nursing Home Medications: Home Medications Medication Instructions Recorded Confirmed Type carvedilol 6.25 mg tablet 6.25 mg PO BID 07/07/17 03/06/19 History cholecalciferol (vitamin D3) 2,000 2,000 unit PO DAILY 07/07/17 03/05/19 History unit capsule furosemide 40 mg tablet 40 mg PO DAILY tab 07/07/17 03/05/19 History loratadine 10 mg tablet 10 mg PO DAILY 07/07/17 03/05/19 History montelukast 10 mg tablet 10 mg PO HS 07/07/17 03/05/19 History multivitamin tablet 1 tab PO DAILY 07/07/17 03/05/19 History omeprazole 20 mg capsule,delayed 20 mg PO DAILY 07/07/17 03/05/19 History release losartan 25 mg tablet 12.5 mg PO DAILY tab 01/05/18 03/06/19 History Fluticasone Propionate [Flonase 1 spray NOSTRIL-B DAILY 01/24/18 03/05/19 History 50mcg nasal spray 16gm] Fluticasone/Vilanterol [Breo 1 each IH DAILY 01/24/18 03/05/19 History Ellipta 200-25 Mcg INH] Hydrocod/Acet 5/325 mg [[place] 1 tab PO Q6HP PRN 01/24/18 03/05/19 History 5/325mg tablet] Ipratropium/Albuterol Sulfate 3 ml IH Q6H 01/24/18 03/05/19 History [Iprat-Albut 0.5-3(2.5) mg/3 ml] Potassium Chloride [Klor-Con 10mEq 10 meq PO DAILY 01/24/18 03/05/19 History tab] Ondansetron HCl [Zofran 4mg Tab] 4 mg PO Q8HP PRN #10 tab 05/01/18 03/05/19 Rx Albuterol Sulfate [Albuterol 1.25 mg IH NEEDED PRN 06/21/18 03/05/19 History 0.042% 1.25mg/3mL neb] Atorvastatin Calcium [Atorvastatin 20 mg PO HS 11/27/18 03/05/19 History 20mg Tab] predniSONE [Deltasone 10mg tablet] 10 mg PO DAILY 7 Days #7 tab 03/08/19 Rx Prescriptions/Medication Reconciliation: New predniSONE [Deltasone 10mg tablet] 10 mg PO DAILY 7 Days #7 tab Continued carvedilol 6.25 mg tablet 6.25 mg PO BID furosemide 40 mg tablet 40 mg PO DAILY tab montelukast 10 mg tablet 10 mg PO HS omeprazole 20 mg capsule,delayed release 20 mg PO DAILY multivitamin tablet 1 tab PO DAILY cholecalciferol (vitamin D3) 2,000 unit capsule 2,000 unit PO DAILY loratadine 10 mg tablet 10 mg PO DAILY losartan 25 mg tablet 12.5 mg PO DAILY tab Fluticasone/Vilanterol [Breo Ellipta 200-25 Mcg INH] 1 each IH DAILY Hydrocod/Acet 5/325 mg [[place] 5/325mg tablet] 1 tab PO Q6HP PRN PRN Reason: PAIN Potassium Chloride [Klor-Con 10mEq tab] 10 meq PO DAILY Ondansetron HCl [Zofran 4mg Tab] 4 mg PO Q8HP PRN #10 tab PRN Reason: Nausea And Vomiting Atorvastatin Calcium [Atorvastatin 20mg Tab] 20 mg PO HS Fluticasone Propionate [Flonase 50mcg nasal spray 16gm] 1 spray NOSTRIL-B DAILY Ipratropium/Albuterol Sulfate [Iprat-Albut 0.5-3(2.5) mg/3 ml] 3 ml IH Q6H Albuterol Sulfate [Albuterol 0.042% 1.25mg/3mL neb] 1.25 mg IH NEEDED PRN PRN Reason: COPD - Problem Reconciliation Problems Reviewed?: Yes
[2019-03-08 08:05] LABS: Basophils % 0.1 % (0.1-2.0); Eosinophils % 0.2 % (0.1-12.0); Hematocrit 44.5 % (37.0-47.0); Hemoglobin 14.1 g/dL (12.2-16.2); Lymphocytes # 0.5 K/mm3 (0.7-4.5); Lymphocytes % 3.5 % (10-50); Mean Corpuscular HGB Conc 31.8 g/dL (31.8-35.4); Mean Corpuscular Volume 94.3 fl (81-99); Mean Platelet Volume 6.7 fl (7.4-10.4); Monocytes # 0.7 K/mm3 (0.1-1.0); Monocytes % 4.9 % (1.7-9.3); Neutrophils # 13.9 K/mm3 (1.8-7.8); Neutrophils % 91.4 % (37.0-80.0); Platelet Count 429 K/mm3 (142-424); Red Blood Count 4.72 M/mm3 (4.20-5.40); Red Cell Distribution Width 13.1 % (11.5-17.5); White Blood Count 15.3 K/mm3 (4.8-10.8)
[2019-03-08 08:35] LABS: Anion Gap 12.5 mEq/L (5-15); Calcium 8.6 mg/dL (8.5-10.1); Vancomycin,Trough 12.8 mcg/ml (10.0-20.0)
[2019-03-08 08:48] LABS: Lymphocytes % 2 % (10-50); Monocytes % 2 % (2-9); Neutrophils % 93 % (42-76); Total Cells Counted 100
[2019-03-08 08:49] LABS: RBC Morphology Normal
== END 2019-03-08 08:25 | disposition home or self-care (01) ==
LOC: 2ND
PROVIDERS: ADMIT Family Medicine; ATTEND Family Medicine
CPT/HCPCS: 36415; 71020; 71046; 80048; 80202; 82803; 85007; 85025; 86738; 87040; 87070; 87077; 87186; 87205; 94640; 94761; G0378; J0456; J3370

== ENCOUNTER → 2019-09-14 14:03 | Outpatient (CLI) | payer MEDICARE, MEDICAID, SELFPAY ==
--- NOTE | 2019-09-14 14:07 | CA_ITS ---
APPROVED REPORT Right Lower Extremity Venous Study for DVT. Numerical Control Lathe Operator: Linda Peterson RVT Indications Lower Extremity Pain: Right Lower Extremity Edema: Right Current Smoker Swelling rle x 1 week Risk Factors Prior Phlebitis/DVT Current Smoker Vein Imaging CFV (R): compressive, spontaneous, phasic, augmentation FEM (R): compressive, spontaneous, phasic, augmentation POP (R): compressive, spontaneous, phasic, augmentation PTV (R): Compressible GSV (R): Compressible Peroneals (R):Compressible GAS (R): Compressible Findings Study suggests no evidence of DVT in the right lower extremity. Study suggests no evidence of SVT in the right lower extremity. Conclusion No evidence of DVT or superficial thrombophlebitis in the veins scanned of the right lower extremity. Electronically signed by : Jean Slater MD 09/14/2019 16:09:29
== END ==
PROVIDERS: PCP Nurse Practitioner Family; Visit Provider Nurse Practitioner Family
DX: M79.604 Pain in right leg (principal); R60.0 Localized edema
CPT/HCPCS: 93971

== ENCOUNTER → 2019-10-09 15:11 | Outpatient (CLI) | payer MEDICARE, MEDICAID, SELFPAY ==
--- NOTE | 2019-10-09 15:17 | XR_ITS ---
PROCEDURE: XR TIBIA FIBULA RT 2V CLINICAL INDICATION: RT LEG SWELLING , LEUKOCYTOSIS, INJURY Pain COMPARISON: TIBIART XR tibia fibula RT 2V from 10/28/2018 XR ANKLE RT MIN 3V from 10/09/2019 FINDINGS: No fracture, dislocation, lytic change, or blastic change evident. No significant degenerative change IMPRESSION: Negative right tib fib Dictated by: Jean Slater MD 10/09/2019 17:31 Electronically signed by Jean Slater MD in [place] 10/09/2019 17:31
--- NOTE | 2019-10-09 15:17 | XR_ITS ---
PROCEDURE: XR FOOT RT MIN 3V CLINICAL INDICATION: Right foot pain, twisting injury with pain COMPARISON: No exams were available for comparison FINDINGS: Hallux valgus with mild osteoarthritis of the 1st MTP joint No acute fracture or dislocation. Other findings:Mild bunion formation at the 1st metatarsal IMPRESSION: Hallux valgus with bunion formation and osteoarthritis of the 1st MTP joint Dictated by: Jean Slater MD 10/09/2019 17:27 Electronically signed by Jean Slater MD in [place] 10/09/2019 17:27
--- NOTE | 2019-10-09 15:17 | XR_ITS ---
PROCEDURE: XR ANKLE RT MIN 3V CLINICAL INDICATION: Pain COMPARISON: No exams were available for comparison FINDINGS: No fracture, dislocation, lytic change, or blastic change evident. No significant degenerative change IMPRESSION: Negative right ankle Dictated by: Jean Slater MD 10/09/2019 17:30 Electronically signed by Jean Slater MD in [place] 10/09/2019 17:30
--- NOTE | 2019-10-09 15:17 | XR_ITS ---
PROCEDURE: XR HIP RT 2-3V W/PELVIS CLINICAL INDICATION: Right hip and leg pain COMPARISON: BONE3 BONE DENSITOMETRY(HIP:LT SPINE from 07/21/[id number] abdomen pelvis wo con from 05/01/2018 FINDINGS: No fracture or dislocation. No lytic or blastic change. There are minimal osteoarthritic changes of both hips as seen on the AP view of the pelvis. Facet arthritic changes are present at the lumbosacral junction. A small sclerotic focus is present in the left ilium inferiorly versus an overlying soft tissue calcification IMPRESSION: Mild degenerative changes, no acute finding Dictated by: Jean Slater MD 10/09/2019 17:29 Electronically signed by Jean Slater MD in [place] 10/09/2019 17:29
--- NOTE | 2019-10-09 15:17 | XR_ITS ---
PROCEDURE: XR FEMUR RT 2V CLINICAL INDICATION: Right leg pain COMPARISON: No exams were available for comparison FINDINGS: No fracture or dislocation. No lytic or blastic change. There is normal mineralization. Minimal osteoarthritic changes noted in the hip. Other findings:Vascular calcification IMPRESSION: No acute findings. Dictated by: Jean Slater MD 10/09/2019 17:29 Electronically signed by Jean Slater MD in [place] 10/09/2019 17:29
== END ==
PROVIDERS: PCP Nurse Practitioner Family; Visit Provider Nurse Practitioner Family
DX: S99.921D Unspecified injury of right foot, subsequent encounter (principal); S99.911D Unspecified injury of right ankle, subsequent encounter; D72.829 Elevated white blood cell count, unspecified; M79.89 Other specified soft tissue disorders
CPT/HCPCS: 73502; 73552; 73590; 73610; 73630

== ENCOUNTER → 2019-10-12 09:37 | Outpatient (CLI) | payer MEDICARE, MEDICAID, SELFPAY ==
--- NOTE | 2019-10-12 09:40 | US_ITS ---
APPROVED REPORT Exam Type: Lower Extremity Segmental Pressures Copy Writer: Linda Peterson RVT Indications Claudication: Right Rest Pain: Right Edema Current Smoker selling rle, decreased pulses Risk Factors Hypertension Hyperlipidemia Current Smoker Pressures/Indices Right Indices Left Indices Brachial 133.00 mmHg Brachial 135.00 mmHg Low Thigh 137.00 mmHg 1.01 Low Thigh 138.00 mmHg 1.02 Calf 138.00 mmHg 1.02 Calf 154.00 mmHg 1.14 Ankle(PT) 153.00 mmHg 1.13 Ankle(PT) 153.00 mmHg 1.13 Ankle(DP) 144.00 mmHg 1.07 Ankle(DP) 146.00 mmHg 1.08 Digit 120.00 mmHg 0.89 Digit 134.00 mmHg 0.99 Findings RT BURTON:1.13 LT BURTON:1.13 RT TBI:0.89 LT TBI:0.99 NORMAL PULSES BILATERAL NORMAL WAVEFORMS BILATERAL Conclusion Normal appearing resting noninvasive lower extremity arterial study. Electronically signed by : Jean Slater MD 10/12/2019 16:28:14
== END ==
PROVIDERS: PCP Nurse Practitioner Family; Visit Provider Nurse Practitioner Family
DX: M79.89 Other specified soft tissue disorders (principal); M79.604 Pain in right leg; R09.89 Other specified symptoms and signs involving the circulatory and respiratory systems
CPT/HCPCS: 93923

== ENCOUNTER → 2019-10-15 10:30 | Outpatient (CLI) | payer MEDICARE, MEDICAID, SELFPAY ==
--- NOTE | 2019-10-15 10:52 | XR_ITS ---
PROCEDURE: XR CHEST 2V CLINICAL HISTORY: LEUKOCYTOSIS COMPARISON: CXR CHEST(2 VIEWS-NOT PORTABLE) from 01/25/[address] [facility] [address] CHEST W/O CONTRAST from 06/03/2017 CXR2V XR chest 2V from 01/24/2018 XR CHEST 2V from 03/05/2019 FINDINGS: The there is mild cardiomegaly without failure. There are fibrotic changes in the right upper lobe. The remaining lungs are clear. Mild kyphosis with degenerative changes of the thoracic spine. IMPRESSION: Cardiomegaly with fibrotic change in the right upper lobe. No change with no acute finding Dictated by: Jean Slater MD 10/15/2019 14:10 Electronically signed by Jean Slater MD in [place] 10/15/2019 14:10
[2019-10-15 11:27] LABS: Basophils # 0.1 K/mm3 (0-0.2); Basophils % 0.5 % (0.1-2.0); Eosinophils % 0.2 % (0.1-12.0); Hematocrit 42.3 % (37.0-47.0); Hemoglobin 13.3 g/dL (12.2-16.2); Lymphocytes # 1.8 K/mm3 (0.7-4.5); MANUAL DIFFERENTIAL MANUAL DIFFERENTIAL (MANUAL DIFF); Mean Corpuscular HGB Conc 31.4 g/dL (31.8-35.4); Mean Corpuscular Hemoglobin 30.5 pg (27.0-31.2); Mean Corpuscular Volume 97.2 fl (81-99); Mean Platelet Volume 7.1 fl (7.4-10.4); Monocytes # 0.6 K/mm3 (0.1-1.0); Monocytes % 3.7 % (1.7-9.3); Neutrophils # 14.2 K/mm3 (1.8-7.8); Neutrophils % 84.8 % (37.0-80.0); Platelet Count 401 K/mm3 (142-424); Red Blood Count 4.35 M/mm3 (4.20-5.40); Red Cell Distribution Width 15.3 % (11.5-17.5); White Blood Count 16.8 K/mm3 (4.8-10.8)
[2019-10-15 13:03] LABS: Lymphocytes % 20 % (10-50); Monocytes % 3 % (2-9); Neutrophils % 77 % (42-76); Platelet Estimate Normal; RBC Morphology Normal; Total Cells Counted 100
[2019-10-15 13:38] LABS: Alanine Aminotransferase 23 U/L (12-78); Albumin Level 3.4 g/dl (3.5-5.0); Albumin/Globulin Ratio 1.4 (1.1-1.8); Alkaline Phosphatase 120 U/L (38-126); Anion Gap 8.6 mEq/L (5-15); Aspartate Amino Transferase 20 U/L (14-36); Bilirubin,Total 0.3 mg/dl (0.2-1.3); Blood Urea Nitrogen 19 mg/dl (7-17); Calcium 9.2 mg/dl (8.4-10.2); Carbon Dioxide 32 mmol/L (22.0-30.0); Chloride 100 mmol/L (98-107); Estimated Glomerular Filt Rate 71 ml/min (>60); GFR (African American) 85 ML/MIN (>60); Globulin 2.4 g/dL (1.3-3.2); Glucose 95 mg/dl (74-100); Potassium 3.6 mmoL/L (3.5-5.1); Sodium 137 mmol/L (136-145); Total Protein,Serum 5.8 g/dl (6.3-8.2)
== END ==
PROVIDERS: Visit Provider Nurse Practitioner Family
DX: D72.829 Elevated white blood cell count, unspecified (principal)
CPT/HCPCS: 36415; 71046; 80053; 85007; 85025; 87040

== ENCOUNTER → 2019-12-31 11:26 | Outpatient (CLI) | payer MEDICARE, MEDICAID, SELFPAY ==
--- NOTE | 2019-12-31 | XR_ITS ---
PROCEDURE: XR CHEST 2V CLINICAL HISTORY: PNEUMONIA OF RT. LOWER LOBE COMPARISON: [facility] CT CHEST W/O CONTRAST from 06/03/2017 CXR2V XR chest 2V from 01/24/2018 XR CHEST 2V from 03/05/2019 XR CHEST 2V from 10/15/2019 FINDINGS: There is mild cardiomegaly without failure. Pericardial fat pad noted on both sides. Fibrotic changes are present in the right apex. No lobar consolidation or collapse. There are degenerative changes of the thoracic spine No acute bony abnormalities. IMPRESSION: No change with no acute finding Dictated by: Jean Slater MD 12/31/2019 12:56 Electronically signed by Jean Slater MD in [place] 12/31/2019 12:56
== END ==
PROVIDERS: PCP Nurse Practitioner Family; Visit Provider Nurse Practitioner Family
DX: J18.9 Pneumonia, unspecified organism (principal)
CPT/HCPCS: 71046

== ENCOUNTER 2020-02-08 17:24 | Emergency (ER) | payer MEDICARE, MEDICAID, SELFPAY ==
[2020-02-08 18:18] VITALS: BP 138/76; PULSE 82; RESP 19; TEMP 36.8; O2SAT 98; BMI 32.8; BMI 32.9
--- NOTE | 2020-02-08 18:21 | HMH.EDUTC ---
[facility] [place] Disposition Clinical Impression: Sinusitis Qualifiers: Sinusitis location: unspecified location Chronicity: unspecified Qualified Code(s): J32.9 - Chronic sinusitis, unspecified Disposition: Home, Self-Care Condition on Discharge: Good Instructions: Sinusitis, Sinus Headache, DI for Sinusitis Additional Instructions: Cool compresses on eye may help with discomfort and swelling Take medication as prescribed Follow up with Family Doctor on Tuesday if no improvement or any worsening of symptoms Straight to ER if any life threatening symptoms Return if needed FOllow up with EYE doctor if any trouble or changes with vision Prescriptions: Doxycycline Monohydrate [Doxycycline [place] 100mg Tab] 100 mg PO BID 7 Days #14 tab Transmission Status: Pending to [id number] Referrals: Mike Harp MD [Primary Care Provider] - As needed Time of Disposition: 18:31 Medical Decision Making - Tao Inquiry Pt receiving controlled substance: No Tao was queried for this patient: No Vital Signs: 02/08/20 18:18 Temperature 98.3 F Temperature Source Oral Pulse Rate [Right Brachial] 82 Respiratory Rate 19 Blood Pressure [Right Arm] 138/76 Blood Pressure Mean [Right Arm] 96 Blood Pressure Source [Right Arm] Automatic Cuff Blood Pressure Position [Right Arm] Sitting 02 Sat by Pulse Oximetry 98 Oxygen Delivery Method Room Air [facility] [place] HPI - General Stated complaint: blisters/swelling around L eye Time Seen by Provider: 02/08/20 18:21 Mode of Arrival: Ambulatory Source of Information: Patient Limitations: No Limitations Description of Symptoms (Recalled from Triage Doc. by RN): PATIENT C/O A BLISTER WITH SWELLING UNDER LEFT EYE SINCE THIS MORNING. DENIES VISION CHANGES. PATIENT RECENTLY HAD A SKIN CANCER REMOVED FROM RIGHT SIDE OF HEAD ON TUESDAY - History of Present Illness Provider Complaint: Patient states that she has been having sinus pain and pressure for over a week States that about 3 days ago she had cancer spot removed on her right forehead area States that this morning she woke up and she had some swelling and redness in her left cheek area with fluid filled blister like area under her left eye and she called her PCP and they told her to put cold compress on it States that that it helped with the fluid filled blister under her eye but still having sinus pressure so she came in - Related Data Home Medications Medication Instructions Recorded Confirmed carvedilol 6.25 mg tablet 6.25 mg PO BID 07/07/17 03/06/19 cholecalciferol (vitamin D3) 50 2,000 unit PO DAILY 07/07/17 03/05/19 mcg (2,000 unit) capsule furosemide 40 mg tablet 40 mg PO DAILY tab 07/07/17 03/05/19 loratadine 10 mg tablet 10 mg PO DAILY 07/07/17 03/05/19 montelukast 10 mg tablet 10 mg PO HS 07/07/17 03/05/19 multivitamin 1 tab PO DAILY 07/07/17 03/05/19 omeprazole 20 mg capsule,delayed 20 mg PO DAILY 07/07/17 03/05/19 release losartan 25 mg tablet 12.5 mg PO DAILY tab 01/05/18 03/06/19 Fluticasone Propionate [Flonase 1 spray NOSTRIL-B DAILY 01/24/18 03/05/19 50mcg nasal spray 16gm] Fluticasone/Vilanterol [Breo 1 each IH DAILY 01/24/18 03/05/19 Ellipta 200-25 Mcg INH] Hydrocod/Acet 5/325 mg [[place] 1 tab PO Q6HP PRN 01/24/18 03/05/19 5/325mg tablet] Ipratropium/Albuterol Sulfate 3 ml IH Q6H 01/24/18 03/05/19 [Iprat-Albut 0.5-3(2.5) mg/3 ml] Potassium Chloride [Klor-Con 10mEq 10 meq PO DAILY 01/24/18 03/05/19 tab] Albuterol Sulfate [Albuterol 1.25 mg IH NEEDED PRN 06/21/18 03/05/19 0.042% 1.25mg/3mL neb] Atorvastatin Calcium [Lipitor 20mg 20 mg PO HS 11/27/18 03/05/19 Tab] Previous Rx's Medication Instructions Recorded ondansetron HCL [Zofran 4mg Tab*] 4 mg PO Q8HP PRN #10 tab 05/01/18 predniSONE [Deltasone 10mg tablet] 10 mg PO DAILY 7 Days #7 tab 03/08/19 Nystatin [Nystatin Cr 100,000 1 applicatio TP BID #1 tube 06/19/19 Units/GM 30GM] methylPREDNISolone [Medrol] 4 mg PO A
[2020-02-08 18:39] VITALS: BP 138/76; PULSE 82; RESP 19; TEMP 36.8; O2SAT 98
== END 2020-02-08 18:42 | disposition home or self-care (01) ==
PROVIDERS: Emergency Provider Nurse Practitioner; PCP Family Medicine
DX: J01.90 Acute sinusitis, unspecified (principal); I25.10 Atherosclerotic heart disease of native coronary artery without angina pectoris; K21.9 Gastro-esophageal reflux disease without esophagitis; E78.5 Hyperlipidemia, unspecified; I10 Essential (primary) hypertension; J44.9 Chronic obstructive pulmonary disease, unspecified; F17.210 Nicotine dependence, cigarettes, uncomplicated; Z88.0 Allergy status to penicillin; Z88.5 Allergy status to narcotic agent; Z90.49 Acquired absence of other specified parts of digestive tract; Z90.710 Acquired absence of both cervix and uterus; Z79.899 Other long term (current) drug therapy
CPT/HCPCS: G0463; 99201

== ENCOUNTER 2020-06-04 19:28 | Observation (INO) | payer MEDICARE, MEDICAID, SELFPAY ==
[2020-06-04] VITALS (8 sets, daily range): BP systolic 155–171; BP diastolic 86–109; PULSE 87–105; RESP 16–28; TEMP 36.6–37; O2SAT 93–96; BMI 24.9; BMI 36.2
--- NOTE | 2020-06-04 19:37 | XR_ITS ---
PROCEDURE: XR CHEST PORTABLE CLINICAL HISTORY: soa shortness of breath COMPARISON: CT [facility] CT CHEST W/O CONTRAST from 06/03/2017 CR XR CHEST 2V from 03/05/2019 CR XR CHEST 2V from 10/15/2019 CR XR CHEST 2V from 12/31/[address] ANGIO CHEST from 06/04/2020 FINDINGS: The cardiomediastinal silhouette and pulmonary vascularity are within normal limits. Mild atelectatic changes right middle lobe. No acute bony abnormalities. IMPRESSION: Mild right middle lobe atelectasis otherwise negative Dictated by: Jean Slater MD 06/05/2020 05:28 Jean Slater MD in [place] 06/05/2020 05:28
--- NOTE | 2020-06-04 19:38 | HMH.EDGENADL ---
ED Disposition Condition on Discharge: Good - Critical Care Critical Care Time: No <Flakito Yepez - Last Filed: 06/04/20 19:46> <Abhay Vargas - Last Filed: 06/04/20 22:25> Clinical Impression: COPD exacerbation, Acute exacerbation of chronic obstructive airways disease, Severe sepsis with acute organ dysfunction, Renal insufficiency Disposition: Admitted As Inpatient Referrals: Mike Harp MD [Primary Care Provider] - Attestation: On 06/04/20, the high probability of a clinically significant, sudden or life threatening deterioration of the following system(s) required my full and direct attention, intervention and personal management. The time I documented below is in addition to time spent performing reported procedures but includes the following listed in this critical care notation. Medical Decision Making - Medical Records Medical records reviewed: Yes: I reviewed the patient's medical records. - Tao Inquiry Pt receiving controlled substance: No <Flkaito Yepez - Last Filed: 06/04/20 19:46> - Lab Data Lab results reviewed: Yes: I reviewed the patient's lab results. Result diagrams: 06/04/20 19:45 06/04/20 19:45 - Radiology Data #1 Image(s): Chest Image Reviewed: Yes I reviewed the patient's radiology image Preliminary Findings: Normal/NAD - CT Data CT Scan: Chest Time Received: 22:[address] Reviewed: Yes: I have viewed the radiologist's interpretation Preliminary Findings: Normal/NAD - ECG Data Tracing #1 Normal Sinus Rhythm: Yes Ischemic changes: non-specific ST-T wave changes - Physician Consults Physician Consulted: liliana Reason -: Admission <Abhay Vargas - Last Filed: 06/04/20 22:25> Vital Signs: 06/04/20 19:43 06/04/20 20:20 06/04/20 20:24 Temperature 98.6 F Temperature Source Oral Pulse Rate 99 H 99 H Pulse Rate [Right] 101 H Respiratory Rate 28 H Blood Pressure [Right Arm] 155/109 H Blood Pressure Mean [Right Arm] 124 Blood Pressure Source [Right Arm] Automatic Cuff Blood Pressure Position [Right Arm] Supine 02 Sat by Pulse Oximetry 96 Oxygen Delivery Method Room Air - Lab Data Lab Results 06/04/20 19:45: WBC 23.7 H*, RBC 5.04, Hgb 15.9, Hct 47.2 H, MCV 93.8, MCH 31.5 H, MCHC 33.6, RDW 15.9, Plt Count 339, MPV 7.1 L, Neut % (Auto) 93.3 H, Lymph % (Auto) 2.8 L, [place] % (Auto) 2.8, Eos % (Auto) 0.3, Baso % (Auto) 0.6, Neut # (Auto) 22.1 H, Lymph # (Auto) 0.7, [place] # (Auto) 0.7, Eos # (Auto) 0.1, Baso # (Auto) 0.2, Total Counted 100, Neutrophils % (Manual) 94 H, Lymphocytes % (Manual) 4 L, Monocytes % (Manual) 2, Platelet Estimate Normal, RBC Morphology Normal 06/04/20 19:45: Sodium 132 L, Potassium 4.3, Chloride 91 L, Carbon Dioxide 32 H, Anion Gap 13.3, BUN 29 H, Creatinine 1.10 H, Estimated Creat Clear 56, Estimated GFR 49 L, Est GFR ( Amer) 59, Glucose 263 H, Calcium 9.7, Magnesium 1.8, Total Bilirubin 0.5, AST 33, ALT 51, Alkaline Phosphatase 150 H, Troponin I < 0.01, NT-Pro-B Natriuret Pep 562 H, Total Protein 6.9, Albumin 3.8, Globulin 3.1, Albumin/Globulin Ratio 1.2 06/04/20 19:45: ESR 26 06/04/20 19:45: Lactate 3.0 H 06/04/20 19:45: C-Reactive Protein 22.6 H, Procalcitonin 0.107 06/04/20 19:45: SARS-CoV-2 IgG Ab (Rapid) Negative, SARS-CoV-2 IgM Ab (Rapid) Negative 06/04/20 19:53: Specimen Source Right radial, O2 % room air, ABG pH 7.48 H, ABG pCO2 39.6, ABG pO2 67.8 L, ABG HCO3 28.9 H, ABG Total CO2 30.1 H, ABG O2 Saturation 95, ABG Base Excess 5.4 H, Jean Test Acceptable Orders (Tests/Meds): ED MEDICATIONS Generic Name Dose Route Start Last Admin Trade Name Freq PRN Reason Stop Dose Admin Albuterol/Ipratropium 3 ml 06/04/20 19:45 06/04/20 20:11 Albuterol/Ipratropium 3 Ml Neb IH 07/04/20 19:44 3 ml Q1H YANETH Administration Sodium Chloride 1,000 mls @ 999 mls/hr 06/04/20 21:30 06/04/20 21:26 Sod Chlor 0.9% 1000ml Bag IV 06/04/20 22:30 999 mls/hr .Q1H1M YANETH Administration Discontinue
--- NOTE | 2020-06-04 19:53 | CT_ITS ---
PROCEDURE: CT ANGIO CHEST CLINCIAL INDICATION: SOA Shortness of air, right leg swelling, smoker, evaluate for pulmonary embolus COMPARISON: CT [facility] CT CHEST W/O CONTRAST from 06/03/2017 TECHNIQUE: IV Contrast: 70ML Isovue 370 Axial images obtained with sagittal and coronal reformats. All CT scans at the facility use one or more dose reduction, viz: automated exposure control, ma/kV adjustment per patient size (including targeted exams where dose is matched to indication, i.e. head), or iterative reconstruction technique. FINDINGS: HEART AND MEDIASTINAL STRUCTURES: No pulmonary embolus aortic aneurysm or aortic dissection. There is a rind soft tissue density along the left aspect the mediastinal fat extending down to the lingular area and may represent atelectatic changes or scarring along the mediastinum versus soft tissue thickening. Suggest follow-up to confirm resolution. Coronary artery calcifications are present LUNGS AND PLEURAL SPACES: COPD with centrilobular emphysema. Scattered areas of scarring and subsegmental atelectasis. BONY STRUCTURES: No acute bony abnormalities apparent. UPPER ABDOMEN: Unremarkable. ADDITIONAL FINDINGS: No other significant abnormalities. IMPRESSION: 1. No evidence of pulmonary embolus or aortic aneurysm. 2. COPD with centrilobular emphysema 3. Atelectasis/scarring versus soft tissue thickening along the left aspect of the mediastinum. Consider follow-up to confirm resolution or stability. Dictated by: Jean Slater MD 06/05/2020 06:08 Jean Slater MD in [place] 06/05/2020 06:08
[2020-06-04 19:58] LABS: Basophils # 0.2 K/mm3 (0-0.2); Basophils % 0.6 % (0.1-2.0); Eosinophils # 0.1 K/mm3 (0.0-0.4); Eosinophils % 0.3 % (0.1-12.0); Hematocrit 47.2 % (37.0-47.0); Hemoglobin 15.9 g/dL (12.2-16.2); Lymphocytes # 0.7 K/mm3 (0.7-4.5); Lymphocytes % 2.8 % (10-50); Mean Corpuscular HGB Conc 33.6 g/dL (31.8-35.4); Mean Corpuscular Hemoglobin 31.5 pg (27.0-31.2); Mean Corpuscular Volume 93.8 fl (81-99); Mean Platelet Volume 7.1 fl (7.4-10.4); Monocytes # 0.7 K/mm3 (0.1-1.0); Monocytes % 2.8 % (1.7-9.3); Neutrophils # 22.1 K/mm3 (1.8-7.8); Neutrophils % 93.3 % (37.0-80.0); Platelet Count 339 K/mm3 (142-424); Red Blood Count 5.04 M/mm3 (4.20-5.40); Red Cell Distribution Width 15.9 % (11.5-17.5); White Blood Count 23.7 K/mm3 (4.8-10.8)
[2020-06-04 20:07] LABS: ABG Base Excess 5.4 mmol/L (-2.4-2.3); ABG HCO3 28.9 mmhg (22.0-26.0); ABG Oxygen Saturation 95 % (90-100); ABG PCO2 39.6 mmhg (35.0-45.0); ABG PH 7.48 mmol/L (7.35-7.45); ABG PO2 67.8 mmhg (80-100); ABG TCO2 30.1 mmhg (23-27)
[2020-06-04 20:14] LABS: MANUAL DIFFERENTIAL MANUAL DIFFERENTIAL (MANUAL DIFF)
[2020-06-04 20:15] LABS: C-Reactive Protein 22.6 mg/L (0-4)
[2020-06-04 20:28] LABS: Procalcitonin 0.107 ng/mL (0.0-2.0)
[2020-06-04 20:35] LABS: Chloride 91 mmol/L (98-107); Potassium 4.3 mmoL/L (3.5-5.1); Sodium 132 mmol/L (136-145)
[2020-06-04 20:36] LABS: Erythrocyte Sedimentation Rate 26 mm/hr (0-30)
[2020-06-04 20:37] LABS: Alanine Aminotransferase 51 U/L (12-78); Aspartate Amino Transferase 33 U/L (14-36); Blood Urea Nitrogen 29 mg/dl (7-17); Creatinine Clearance Estimated 56 mL/min (50-200); Estimated Glomerular Filt Rate 49 ml/min (>60); GFR (African American) 59 ML/MIN (>60)
[2020-06-04 20:38] LABS: Albumin Level 3.8 g/dl (3.5-5.0); Albumin/Globulin Ratio 1.2 (1.1-1.8); Alkaline Phosphatase 150 U/L (38-126); Anion Gap 13.3 mEq/L (5-15); Bilirubin,Total 0.5 mg/dl (0.2-1.3); Calcium 9.7 mg/dl (8.4-10.2); Carbon Dioxide 32 mmol/L (22.0-30.0); Globulin 3.1 g/dL (1.3-3.2); Glucose 263 mg/dl (74-100); Magnesium 1.8 mg/dl (1.6-2.3); Total Protein,Serum 6.9 g/dl (6.3-8.2)
[2020-06-04 20:42] LABS: Coronavirus 19 IgG Antibody Negative (Negative); Coronavirus 19 IgM Antibody Negative (Negative)
[2020-06-04 20:47] LABS: NT Pro Brain Natriuretic Pep. 562 pg/mL (0-125)
--- NOTE | 2020-06-04 21:01 | PC.NURSE ---
Dr Vargas speaking with Dr Ramirez for pt admission
[2020-06-04 21:07] LABS: Lymphocytes % 4 % (10-50); Monocytes % 2 % (2-9); Neutrophils % 94 % (42-76); Platelet Estimate Normal; RBC Morphology Normal; Total Cells Counted 100
[2020-06-04 21:08] LABS: Troponin I < 0.01 ng/ml (0.00-0.034)
[2020-06-04 21:37] LABS: Allen's Test Acceptable; Oxygen room air %
[2020-06-04 21:38] LABS: Source Right Radial
--- NOTE | 2020-06-04 22:21 | ECG_ITS ---
APPROVED REPORT Exam: Resting ECG HR:98 bpm ECG Measurements Heart Rate 98 AXES OK 120 P 77 QRSd 72 QRS 34 QT 324 T 71 QTc 413 Conclusion Normal sinus rhythm Normal ECG Electronically signed by : Mike Mcgovern, 06/06/2020 07:11:54
--- NOTE | 2020-06-04 22:57 | PC.NURSE ---
patient up to floor via wheelchair.
[2020-06-04 23:53] LABS: Troponin I < 0.01 ng/ml (0.00-0.034)
[2020-06-04 23:54] LABS: Reflex Lactic Add Lactic Reflex
[2020-06-05] VITALS (8 sets, daily range): BP systolic 128–152; BP diastolic 61–79; PULSE 86–106; RESP 18–20; TEMP 36.5–37; O2SAT 93–100; BMI 36.3
[2020-06-05 00:26] LABS: Lactic Acid Follow Up (RFLX 1) 2.7 mmol/L (0.7-2.1)
--- NOTE | 2020-06-05 00:59 | PC.NURSE ---
PT IS RESTING IN BED. PT HAS AMBULATED TO THE BATHROOM WITH 1 ASSIST. PT GETS SOA WITH ANY KIND OF EXERTION. O2 SATURATION 95-98% ON 2 L NC. LUNG SOUNDS HAVE SCATTERED WHEEZES. ABDOMEN SOFT/NON TENDER WITH ACTIVE BOWEL SOUNDS. PT STATED SHE FELL AT HOME YESTERDAY AND HAS BEEN ENCOURAGED TO CALL FOR HELP WHEN GETTING OOB TO AMBULATE. PT HAS AN AREA NOTED TO THE LEFT SIDE OF THE FOREHEAD THAT SHE STATES WAS FROM SKIN CANCER THAT WAS REMOVED BACK IN . SKIN TEAR NOTED TO THE LEFT HAND WITH DRESSING INTACT. SMALL ABRASION NOTED TO THE RT ELBOW. 4+ PITTING EDEMA NOTED TO RLE. PT STATES SHE HAS CHRONIC DRY SKIN. VSS. WILL CONTINUE TO MONITOR.
[2020-06-05 01:56] LABS: Reflex Lactic (2 hrs) Add Lactic Reflex
[2020-06-05 02:23] LABS: Lactic Acid Follow up (RFLX 2) 2.6 mmol/L (0.7-2.1); Troponin I < 0.01 ng/ml (0.00-0.034)
--- NOTE | 2020-06-05 03:59 | PC.WOUNDNOTE ---
Wound Location: Length: Width: Depth: Undermining Y/N: Tunneling cm: Granulation %: Slough/necrotic tissue %: Inflammation/swelling Y/N: Pain and/or tenderness Y/N: Exudate: Serosanguinous Sanguinous Serosanguinous Seropurulent Purulent Color: Clear [place] Cloudy/milky [place] Red Green Yellow Brown Blakely Blue Consistency: Thick Thin Amount: None Scant Small Moderate Large Odor Y/N:
--- NOTE | 2020-06-05 07:00 | CA_ITS ---
APPROVED REPORT EXAM: Comprehensive 2D, Doppler, and color-flow Echocardiogram Combat Control Manager: Kathia Granado CRT Ht: 4 ft 9 in Wt: 169lbs BSA: 1.67 BP: 155/109 mmHg Indications: asthma,GERD, Angioplasty, edema, Chest Pain, Congestive Heart Failure, COPD, Hyperlipidemia, Hypertension/HDD poor parasternal windows 2D Dimensions LVOT 2.00 cm (M/F) 1.5-2.5 M-Mode Dimensions RVDd 3.20 cm (0.9-2.6) LA Diam 3.17 cm (1.9-4.0) LVDd 5.56 cm (3.5-5.7) Ao Diam 4.05 cm (2.0-3.7) LVDs 4.38 cm (3.5-5.7) IVSd 1.05 cm (0.6-1.1) PWd 0.53 cm (0.6-1.1) EF (Teich) 42.60% FS 21.20% EDV (Teich) 151.20 mL ESV (Teich) 86.80 mL LV Diastology E Decel Time 150.00 (160-240 msec) E/A Ratio 0.63 MED E' 10.60 (< 7 cm/sec) E'/MED E' Ratio 7.75 (>14) LAT E' 10.40 (<10 cm/sec) E/LAT E' Ratio 7.89 (>14) Aortic Valve AO Peak GR. 8.50 mmHg Mitral Valve MV E Max Dima. 82.00 (40-130 cm/s) MV A Velocity 130.00 (40-130 cm/s) E/A Ratio 0.63 MV Decel. Time 150.00 (160-240 ms) MV PHT 44.00 ms Tricuspid Valve TR P. Velocity 149.00 cm/s RAP Estimate 10.00 mmHg RVSP 18.90 mmHg Left Ventricle Technically difficult study because of the patient factors and poor acoustic windows. Left atrium is mildly enlarged, left ventricle is normal size visually estimated ejection fraction 55% with no obvious regional wall motion abnormality in the obtained views. Grade 1 diastolic dysfunction seen without tissue Doppler evidence of raise left atrial pressure. Right Ventricle Right atrium and right ventricle are normal size and contractility. Aortic Valve Aortic valve is minimally thickened and fibrosed, there is no aortic stenosis or aortic insufficiency. Mitral Valve Mitral valve has mitral calcification, leaflets are minimally thickened, there is no mitral stenosis, there is mild mitral regurgitation. Tricuspid Valve Tricuspid valve is poorly visualized. Pulmonic Valve Pulmonic valve is poorly visualized. Great Vessels Aortic root is normal size. Pericardium No significant pericardial effusion noted. Conclusion 1. Technically difficult study because of the patient factors and poor acoustic windows. 2. Mildly enlarged left atrium, normal left ventricular size, mild concentric left ventricular hypertrophy, visually estimated ejection fraction 55% in the obtained views. There is grade 1 diastolic dysfunction seen without tissue Doppler evidence of raise left atrial pressure. 3. Mild mitral and tricuspid regurgitation. 4. No significant pericardial effusion noted. Electronically signed by : Terrell Jackson, 06/05/2020 13:05:00
--- NOTE | 2020-06-05 07:21 | P.CONPHA_ITS ---
[facility] Pharmacy VTE Monitoring - Patient Demographics Admission date: 06/04/20 Report Date: 06/05/20 Time: 07:22 Allergies/Adverse Reactions: Patient Allergies Penicillins Allergy (Severe, Verified 11/28/18 08:48) I-RASH AND DIFFICULTY BREATHING oxycodone [From PERCOCET] Allergy (Unknown, Verified 11/28/18 08:48) Rash acetaminophen [From PERCOCET] Adverse Reaction (Unknown, Verified 11/28/18 08:48) Gastrointestinal Upset codeine Adverse Reaction (Unknown, Verified 11/28/18 08:48) keeps her awake Height: 1.45 m Weight: 76.402 kg Patient Problems: Current Active Problems COPD exacerbation (Acute) Acute exacerbation of chronic obstructive airways disease (Acute) Severe sepsis with acute organ dysfunction (Acute) Renal insufficiency (Acute) - VTE Risk Labs: VTE Related Lab Results Hgb 15.9 g/dL (12.2-16.2) 06/04/20 19:45 Hct 47.2 % (37.0-47.0) H 06/04/20 19:45 Plt Count 339 K/mm3 (142-424) 06/04/20 19:45 BUN 29 mg/dl (7-17) H 06/04/20 19:45 Creatinine 1.10 mg/dl (0.52-1.04) H 06/04/20 19:45 Estimated Creat Clear 56 mL/min (50-200) 06/04/20 19:45 VTE Score: 4 VTE Risk Level: Low Risk Clinical Trial Participant: No - Prophylaxis VTE Prophylaxis Ordered?: Yes Types of VTE Prophylaxis: TEDS Knee High Location of Applied Device: Bilateral Lower Extremeties
[2020-06-05 07:36] LABS: Chloride 102 mmol/L (98-107); Potassium 4.4 mmoL/L (3.5-5.1); Sodium 135 mmol/L (136-145)
[2020-06-05 07:38] LABS: Basophils % 0.2 % (0.1-2.0); Hematocrit 41.2 % (37.0-47.0); Lymphocytes # 0.7 K/mm3 (0.7-4.5); Lymphocytes % 4.3 % (10-50); Mean Corpuscular HGB Conc 33.1 g/dL (31.8-35.4); Mean Corpuscular Hemoglobin 31.2 pg (27.0-31.2); Mean Corpuscular Volume 94.1 fl (81-99); Mean Platelet Volume 7.6 fl (7.4-10.4); Monocytes # 0.5 K/mm3 (0.1-1.0); Monocytes % 2.9 % (1.7-9.3); Neutrophils % 92.6 % (37.0-80.0); Platelet Count 295 K/mm3 (142-424); Red Blood Count 4.38 M/mm3 (4.20-5.40); White Blood Count 17.3 K/mm3 (4.8-10.8)
[2020-06-05 07:39] LABS: Anion Gap 8.4 mEq/L (5-15); Blood Urea Nitrogen 27 mg/dl (7-17); Calcium 9.4 mg/dl (8.4-10.2); Carbon Dioxide 29 mmol/L (22.0-30.0); Creatinine Clearance Estimated 61 mL/min (50-200); Estimated Glomerular Filt Rate 62 ml/min (>60); GFR (African American) 74 ML/MIN (>60); Glucose 152 mg/dl (74-100)
--- NOTE | 2020-06-05 07:43 | HMH.PHAINT ---
Medication reconciliation completed using pharmacy claims data and patient interview.
[2020-06-05 07:44] LABS: Hemoglobin 13.6 g/dL (12.2-16.2); MANUAL DIFFERENTIAL MANUAL DIFFERENTIAL (MANUAL DIFF)
--- NOTE | 2020-06-05 07:55 | HMH.HP ---
*Admission Date: 06/04/20 *Chief complaint: Fall at home, shortness of breath *History of present illness: 74-year-old female with known COPD for which she has home oxygen presented to the emergency department after a near fall at home and fear from family they would not be able to get her up off the floor. Simultaneously she has been dealing with increasing shortness of breath and cough productive of brown sputum. Patient has not had any fevers. Home pulse oximetry monitoring is revealed O2 sats in the mid to high 90s on room air. Patient came to the emergency department and underwent evaluation. Chest x-ray and CT scan ruled out pneumonia. Patient's white blood cell count was elevated at 23,000. It is unclear from the ER record whether ER was aware patient had received steroid injection approximately 4 hours prior to her presentation to the ER. Nonetheless she was admitted due to her leukocytosis. This morning her primary concern is her repeated episodes of her right leg giving out on her leading to falls and near falls and her back pain. [facility] History I have reviewed the patient's past medical history: Yes Medical History: Reports:: Cancer (skin), Congestive Heart Failure, Chronic Obstructive Pulmonary Disease (COPD), Coronary Artery Disease, Gastroesophageal Reflux Disease(GERD), Hyperlipidemia, Hypertension, Lung Disease (COPD) Denies:: Diabetes Mellitus Type 1, Diabetes Mellitus Type 2, Internal Pacemaker, MRSA, Seizures *Have you ever received a pneumonia vaccine?: Yes *Have you received a flu vaccine this season?: Yes Other Medical History: Reports: Arthritis. Denies: Blood Transfusion Reaction Laterality Cases: Bilateral: Breast Biopsy, Other Other Surgeries: Yes: Angioplasty, Appendectomy, Cholecystectomy, Colonoscopy, Dilation and Curettage, Hysterectomy-Total, Tubal Ligation, Other. No: Pacemaker Amputation: No Fractures: No - *Social History Last grade of school completed: High school graduate Smoking Status: Current every day smoker Tobacco Type: cigarettes # Packs/Day (cigarettes): 1 Alcohol Intake: never Alcohol Intake Frequency:: other Substance Use Type: denies use *Occupational Status:: retired, disabled Housing: house Household Members: family *Travel in the last 8 weeks: None Family Hx:: Coronary Artery Disease, Diabetes, Heart Attack, Hyperlipidemia, Hypertension Review of Systems - Constitutional Reports fatigue, Reports lack of energy, Reports malaise, Denies anorexia, Denies body ache(s), Denies chills, Denies excessive sweating, Denies fever(s), Denies night sweats - Eyes Denies blurry vision, Denies change in vision - ENT Denies abnormal hearing, Denies ear pain - *Cardiovascular Denies chest pain, Denies chest pain at rest, Denies chest pain with activity - *Respiratory Reports change in phlegm color, Reports chest congestion, Reports cough, Reports shortness of breath - *Gastrointestinal Denies belching, Denies bloating - *Genitourinary Denies difficulty urinating, Denies side pain, Denies genital lesions - *Musculoskeletal Reports joint pain, Reports back pain - Integumentary/Breasts Denies hair loss - *Neurologic Denies abnormal walking, Denies abnormal speech, Denies unsteadiness, Denies dizziness, Denies headache(s), Denies numbness Meds Home Medications Medication Instructions Recorded Confirmed Type carvedilol 6.25 mg tablet 6.25 mg PO BID 07/07/17 06/04/20 History furosemide 40 mg tablet 40 mg PO DAILY tab 07/07/17 06/04/20 History loratadine 10 mg tablet 10 mg PO DAILY 07/07/17 06/04/20 History montelukast 10 mg tablet 10 mg PO HS 07/07/17 06/04/20 History Ipratropium/Albuterol Sulfate 3 ml IH Q6H PRN 01/24/18 06/04/20 History [Iprat-Albut 0.5-3(2.5) mg/3 ml] Potassium Chloride [Klor-Con 10mEq 10 meq PO DAILY 01/24/18 06/04/20 History tab] Atorvastatin Calcium [Lipitor 20mg 20 mg PO HS 11/27/18 06/04/20 History Tab] Cholecalciferol (Vitamin D3) 50 mcg
--- NOTE | 2020-06-05 08:01 | XR_ITS ---
PROCEDURE: XR LUMBAR SPINE 2-3V CLINICAL INDICATION: back pain Low back pain COMPARISON: CT ABDPELWO CT abdomen pelvis wo con from 05/01/2018 FINDINGS: There is normal alignment. There is degenerative disc disease at L4-5 and L5-S1. There is mild wedging of L1 which has developed since the previous abdomen CT 05/01/2018. There is diffuse vascular calcification. There has been a prior cholecystectomy. There is an opacity in the left mid abdominal region which may be due to an ingested pill. IMPRESSION: 1. Mild wedging of L1 which has developed since 05/01/2018. 2. Lumbar spondylosis Dictated by: Jean Slater MD 06/05/2020 09:58 Jean Slater MD in [place] 06/05/2020 09:58
--- NOTE | 2020-06-05 08:01 | XR_ITS ---
PROCEDURE: XR THORACIC SPINE 3V CLINICAL INDICATION: back pain COMPARISON: CT LUNGSCREEN CT lung screening from 10/28/2017 FINDINGS: There is multilevel spondylosis of the thoracic spine from T1-T12. There is mild kyphosis with minimal wedging of T9 T7 and T6.. These mild wedge changes have developed since 10/28/2017 a but may be chronic. MRI could confirm age. No obvious lytic or blastic change.. IMPRESSION: Multilevel degenerative change with kyphosis and mild wedging of T6-T7 and T9 which is age indeterminate Dictated by: Jean Slater MD 06/05/2020 09:55 Jean Slater MD in [place] 06/05/2020 09:55
--- NOTE | 2020-06-05 08:01 | CA_ITS ---
APPROVED REPORT Right Lower Extremity Venous Study for DVT. Pallet Stone Inserter: Linda Peterson RVT Indications Lower Extremity Edema: Right right leg swelling Risk Factors Prior Phlebitis/DVT Past History DVT : Vein Imaging CFV (R): compressive, spontaneous, phasic, augmentation FEM (R): compressive, spontaneous, phasic, augmentation POP (R): compressive, spontaneous, phasic, augmentation PTV (R): Compressible GSV (R): Compressible Peroneals (R):Compressible GAS (R): Compressible Findings Study suggests no evidence of DVT of the right lower extremity. Study suggests no evidence of SVT of the right lower extremity. Conclusion Study suggests no evidence of DVT of the right lower extremity. Study suggests no evidence of SVT of the right lower extremity. Electronically signed by : Jean Slater MD 06/05/2020 17:05:55
[2020-06-05 08:33] LABS: Lymphocytes % 14 % (10-50); Monocytes % 4 % (2-9); Neutrophils % 82 % (42-76); Platelet Estimate Normal; RBC Morphology Normal; Total Cells Counted 100
--- NOTE | 2020-06-05 12:34 | PC.NURSE ---
Pt is alert and oriented x4. She remains on 2L NC with O2 running in upper 90's. O2 sats are low 90's on RA. She reports dyspnea on exertion. Wheezes noted bilaterally to middle and upper lung knight, bilateral bases diminished. +1 edema to lle and +4 edema noted rle. RLE wrapped in zeeshan bandage. Swelling noted left elbow/forearm. It looks as though IV infiltrated but patient states it always looks like that. IV to LAC wouldn't flush so new IV placed to right wrist. Skin tear noted to right lateral wrist, covered w/2x2. Abrasion noted to right elbow and area noted to right forehead that patient states is from skin cancer removal. Bandaid also noted to right hand for skin tear. Family at bedside and supportive. Will continue to monitor.
--- NOTE | 2020-06-05 14:16 | HMH.PTEV ---
Physical Therapy Evaluation Rehab PT IP Evaluation Start: 06/05/20 12:47 Freq: ONCE Status: Active Protocol: Document 06/05/20 14:12 KARISSA (Rec: 06/05/20 14:16 KARISSA [id number]) Subjective/History History History 74-year-old female with known COPD for which she has home oxygen presented to the emergency department after a near fall at home and fear from family they would not be able to get her up off the floor. Simultaneously she has been dealing with increasing shortness of breath and cough productive of brown sputum. Patient has not had any fevers . copied from H&P Subjective Subjective Pt reports c/o pain across mid thoracic spine Rehab PT IP Eval Objective Appearance Patient Behavior Appropriate,Cooperative Patient Orientation Person,Place,Time Difficulty following instructions none Speech Pattern Clear,Appropriate Ambulation Patient Able to Ambulate Yes Ambulation Observation IP General Gait Pattern Observation Shuffling Step Ambulation Distance (feet) 30 Ambulation Assistive Device None Ambulation Ability Supervision/Stand by Balance Ability to Arise Able, uses arms to help Sitting Balance Steady, safe Standing Balance Narrow stance w/o support Dynamic Sitting Balance Ability Normal Dynamic Standing Balance Ability Good Transfers Bed Transfer Ability Independent Chair Transfer Ability Independent Sit to Stand Bed Transfer Ability Independent Sit to Stand Chair Transfer Ability Independent Rehab PT IP prob,goals,plan Problems Date of Evaluation: 06/05/20 Rehab Potential Rehab Potential Innapropriate for Skilled Therapy Discharge Plan PT Discharge Plan Pt safe to dc home once medically stable per MD G -code Required Yes Eval Complexity Eval Charge Codes 61654 - Low Complexity G Codes PT Current Status Self Care PT Current Status Modifier CI-At least 1% but less than 20% impaired, limited or restricted PT Goal Status Self Care PT Goal Status Modifer CI-At least 1% but less than 20% impaired, limited or restricted
[2020-06-06 03:25] VITALS: PULSE 80; PULSE 82; O2SAT 95
[2020-06-06 03:35] VITALS: BP 153/72; PULSE 91; RESP 20; TEMP 36.8; O2SAT 95
--- NOTE | 2020-06-06 04:24 | PC.NURSE ---
Pt has been pleasant and cooperative this shift. A&O X4. No complaints of pain or SOA. Pt is receiving O2 via NC @ 2 LPM with sats. >90%. Lung sounds reveal wheezing. 2+ pitting edema noted to BLE. Skin tear noted to LT hand is covered with a bandaid that is C/D/I. Abrasion noted to RT elbow is open to air. Pt ambulates with stand-by assistance to/from the bathroom and uses the toilet to void clear, yellow urine without issue. No BM this shift. 22 G peripheral IV in the RT hand is patent and SL. VSS. Call light within reach. Will continue to monitor.
[2020-06-06 04:57] VITALS: BMI 35.6
[2020-06-06 06:35] LABS: Basophils % 0.1 % (0.1-2.0); Hematocrit 38.8 % (37.0-47.0); Hemoglobin 12.3 g/dL (12.2-16.2); Lymphocytes # 0.6 K/mm3 (0.7-4.5); Lymphocytes % 4.7 % (10-50); Mean Corpuscular HGB Conc 31.6 g/dL (31.8-35.4); Mean Corpuscular Hemoglobin 30.1 pg (27.0-31.2); Mean Corpuscular Volume 95.4 fl (81-99); Mean Platelet Volume 7.4 fl (7.4-10.4); Monocytes # 0.5 K/mm3 (0.1-1.0); Monocytes % 3.5 % (1.7-9.3); Neutrophils # 12.2 K/mm3 (1.8-7.8); Neutrophils % 91.7 % (37.0-80.0); Platelet Count 255 K/mm3 (142-424); Red Blood Count 4.07 M/mm3 (4.20-5.40); Red Cell Distribution Width 16.1 % (11.5-17.5); White Blood Count 13.3 K/mm3 (4.8-10.8)
[2020-06-06 06:39] LABS: MANUAL DIFFERENTIAL MANUAL DIFFERENTIAL (MANUAL DIFF)
[2020-06-06 06:41] LABS: Chloride 100 mmol/L (98-107); Potassium 3.6 mmoL/L (3.5-5.1); Sodium 137 mmol/L (136-145)
[2020-06-06 06:44] LABS: Anion Gap 9.6 mEq/L (5-15); Blood Urea Nitrogen 28 mg/dl (7-17); Carbon Dioxide 31 mmol/L (22.0-30.0); Creatinine Clearance Estimated 60 mL/min (50-200); Estimated Glomerular Filt Rate 62 ml/min (>60); GFR (African American) 74 ML/MIN (>60); Glucose 205 mg/dl (74-100)
[2020-06-06 06:49] VITALS: PULSE 88; O2SAT 97
--- NOTE | 2020-06-06 07:13 | HMH.DCSUM ---
General - General Admission date:: 06/04/20 Discharge date: 06/06/20 HPI HPI: 74-year-old female with known COPD for which she has home oxygen presented to the emergency department after a near fall at home and fear from family they would not be able to get her up off the floor. Simultaneously she has been dealing with increasing shortness of breath and cough productive of brown sputum. Patient has not had any fevers. Home pulse oximetry monitoring is revealed O2 sats in the mid to high 90s on room air. Patient came to the emergency department and underwent evaluation. Chest x-ray and CT scan ruled out pneumonia. Patient's white blood cell count was elevated at 23,000. It is unclear from the ER record whether ER was aware patient had received steroid injection approximately 4 hours prior to her presentation to the ER. Nonetheless she was admitted due to her leukocytosis. This morning her primary concern is her repeated episodes of her right leg giving out on her leading to falls and near falls and her back pain. Hospital Course Hospital Course: Patient was admitted and placed on Rocephin and azithromycin secondary to leukocytosis and COPD exacerbation. Patient improved within 36 hours at which point she was no longer wheezing. Patient did not have an oxygen requirement on presentation nor during the admission. She will continue to use her home oxygen at night and during the day as needed.. Patient's main concerns while hospitalized were nonpulmonary in nature. Patient has been experiencing back pain. Thoracic and lumbar spine films showed new mild wedge compressions of multiple vertebra that have developed since 2018. These seem to be the likely generators of her pain. Second was right leg swelling. Patient was ruled out for DVT and a compression wrap was placed on the right leg. PT evaluated the patient due to falls at home and she had no difficulties ambulating here. Upon further discussion we decided she would begin using a walker which she already has at home. Objective Vital signs: Temp Pulse Resp BP Pulse Ox 98.2 F 88 20 153/72 H 97 06/06/20 03:35 06/06/20 06:49 06/06/20 03:35 06/06/20 03:35 06/06/20 06:49 no acute distress - *Routine Respiratory Exam Present: CTA bilaterally, distant breath sounds - *Routine Cardiovascular Exam Present: RRR - *Routine Abdominal Exam Present: soft, normoactive bowel sounds. Absent: tenderness Results Labs on day of discharge: Labs from last 24 hours 06/06/20 06/06/20 06/05/20 06:15 06:15 07:20 WBC 13.3 H RBC 4.07 L Hgb 12.3 Hct 38.8 MCV 95.4 MCH 30.1 MCHC 31.6 L RDW 16.1 Plt Count 255 MPV 7.4 Neut % (Auto) 91.7 H Lymph % (Auto) 4.7 L [place] % (Auto) 3.5 Eos % (Auto) 0.0 L Baso % (Auto) 0.1 Neut # (Auto) 12.2 H Lymph # (Auto) 0.6 L [place] # (Auto) 0.5 Eos # (Auto) 0.0 Baso # (Auto) 0.0 Total Counted Neutrophils % (Manual) Lymphocytes % (Manual) Monocytes % (Manual) Platelet Estimate RBC Morphology Sodium 137 135 L Potassium 3.6 4.4 Chloride 100 102 Carbon Dioxide 31 H 29 Anion Gap 9.6 8.4 BUN 28 H 27 H Creatinine 0.90 0.90 Estimated Creat Clear 60 61 Estimated GFR 62 62 Est GFR ( Amer) 74 74 D Glucose 205 H D 152 H D Calcium 9.0 9.4 Magnesium 2.0 D 06/05/20 07:20 WBC 17.3 H D RBC 4.38 Hgb 13.6 D Hct 41.2 MCV 94.1 MCH 31.2 MCHC 33.1 RDW 16.0 Plt Count 295 MPV 7.6 Neut % (Auto) 92.6 H Lymph % (Auto) 4.3 L [place] % (Auto) 2.9 Eos % (Auto) 0.0 L Baso % (Auto) 0.2 Neut # (Auto) 16.0 H Lymph # (Auto) 0.7 [place] # (Auto) 0.5 Eos # (Auto) 0.0 Baso # (Auto) 0.0 Total Counted 100 Neutrophils % (Manual) 82 H Lymphocytes % (Manual) 14 Monocytes % (Manual) 4 Platelet Estimate Normal RBC Morphology Normal Sodium Potassium Chloride Carbon Dioxide Anion Gap
[2020-06-06 07:17] VITALS: O2SAT 95
[2020-06-06 08:00] VITALS: BP 139/82; PULSE 100; RESP 18; TEMP 36.5; O2SAT 95
[2020-06-06 08:11] LABS: Lymphocytes % 5 % (10-50); Monocytes % 2 % (2-9); Neutrophils % 93 % (42-76); Platelet Estimate Normal; RBC Morphology Normal; Total Cells Counted 100
== END 2020-06-06 09:40 | disposition home or self-care (01) ==
LOC: ER 19:46 → 2ND 22:20
PROVIDERS: Emergency Medicine; Admitting Provider Internal Medicine Adolescent Medicine; Emergency Provider Emergency Medicine; PCP Family Medicine; Visit Provider Family Medicine
DX: J44.1 Chronic obstructive pulmonary disease with (acute) exacerbation (principal); R06.9 Unspecified abnormalities of breathing; I11.0 Hypertensive heart disease with heart failure; I50.9 Heart failure, unspecified; W01.0XXA Fall on same level from slipping, tripping and stumbling without subsequent striking against object, initial encounter; Z91.81 History of falling; Y92.019 Unspecified place in single-family (private) house as the place of occurrence of the external cause; I25.10 Atherosclerotic heart disease of native coronary artery without angina pectoris; Z72.0 Tobacco use; M54.6 Pain in thoracic spine; Z99.81 Dependence on supplemental oxygen; Z88.5 Allergy status to narcotic agent; Z88.0 Allergy status to penicillin; Z79.51 Long term (current) use of inhaled steroids; Z79.899 Other long term (current) drug therapy
CPT/HCPCS: 36415; 71045; 71275; 72072; 72100; 80048; 80053; 82803; 83605; 83735; 83880; 84145; 84484; 85007; 85025; 85651; 86140; 86328; 87040; 87205; 93005; 93306; 93971; 94640; 94760; 94761; 96365; 96367; 96375; 97161; 99284; G0378; J0456; Q9967

== ENCOUNTER → 2020-06-23 15:45 | Outpatient (CLI) | payer MEDICARE, MEDICAID, SELFPAY ==
[2020-06-23 17:32] LABS: Blood Urea Nitrogen 28 mg/dl (7-17); Estimated Glomerular Filt Rate 49 ml/min (>60); GFR (African American) 59 ML/MIN (>60)
== END ==
PROVIDERS: PCP Family Medicine; Visit Provider Family Medicine
DX: R10.2 Pelvic and perineal pain (principal)
CPT/HCPCS: 36415; 82565; 84520

== ENCOUNTER 2020-07-01 07:33 | Inpatient (IN) | payer MEDICARE, MEDICAID, SELFPAY ==
[2020-07-01] VITALS (46 sets, daily range): BP systolic 75–114; BP diastolic 32–66; PULSE 70–114; RESP 18–30; TEMP 36.4–36.7; O2SAT 93–100; BMI 34.7; BMI 41.3
--- NOTE | 2020-07-01 07:22 | ECG_ITS ---
APPROVED REPORT Exam: Resting ECG HR:112 bpm ECG Measurements Heart Rate 112 AXES SD 112 P 76 QRSd 66 QRS 68 QT 280 T 86 QTc 382 Conclusion Sinus tachycardia Nonspecific ST and T wave abnormality Abnormal ECG Electronically signed by : Mike Mcgovern, 07/03/2020 19:33:52
--- NOTE | 2020-07-01 07:43 | PC.NURSE ---
RT notified of ABG orders.
--- NOTE | 2020-07-01 07:44 | XR_ITS ---
PROCEDURE: XR CHEST PORTABLE CLINICAL HISTORY: SOB COMPARISON: CR XR CHEST 2V from 10/15/2019 CR XR CHEST 2V from 12/31/2019 CR XR CHEST PORTABLE from 06/04/[address] ANGIO CHEST from 06/04/2020 FINDINGS: The cardiomediastinal silhouette and pulmonary vascularity are within normal limits. Infiltrate noted in the left upper and left lower lobe. No acute bony abnormalities. IMPRESSION: Left-sided pneumonia Dictated by: Jean Slater MD 07/01/2020 09:11 Jean Slater MD in [facility] 07/01/2020 09:11
--- NOTE | 2020-07-01 07:50 | PC.NURSE ---
pt decreased to 3L per NC SaO2 98% will continue to monitor
--- NOTE | 2020-07-01 07:53 | PC.NURSE ---
RT at BS for [place]
[2020-07-01 08:03] LABS: Alanine Aminotransferase 46 U/L (12-78); Albumin Level 3.2 g/dl (3.5-5.0); Albumin/Globulin Ratio 1.1 (1.1-1.8); Alkaline Phosphatase 218 U/L (38-126); Anion Gap 13.8 mEq/L (5-15); Aspartate Amino Transferase 32 U/L (14-36); Bilirubin,Total 1.1 mg/dl (0.2-1.3); Blood Urea Nitrogen 48 mg/dl (7-17); Calcium 9.4 mg/dl (8.4-10.2); Carbon Dioxide 25 mmol/L (22.0-30.0); Chloride 99 mmol/L (98-107); Creatinine Clearance Estimated 26 mL/min (50-200); Estimated Glomerular Filt Rate 21 ml/min (>60); GFR (African American) 25 ML/MIN (>60); Glucose 139 mg/dl (74-100); Potassium 4.8 mmoL/L (3.5-5.1); Sodium 133 mmol/L (136-145); Total Protein,Serum 6.2 g/dl (6.3-8.2)
[2020-07-01 08:05] LABS: Basophils # 0.1 K/mm3 (0-0.2); Basophils % 0.2 % (0.1-2.0); Eosinophils % 0.1 % (0.1-12.0); Hematocrit 33.7 % (37.0-47.0); Hemoglobin 11.1 g/dL (12.2-16.2); Lymphocytes # 1.2 K/mm3 (0.7-4.5); Lymphocytes % 4.8 % (10-50); Mean Corpuscular HGB Conc 32.9 g/dL (31.8-35.4); Mean Corpuscular Hemoglobin 31.7 pg (27.0-31.2); Mean Corpuscular Volume 96.6 fl (81-99); Mean Platelet Volume 7.5 fl (7.4-10.4); Monocytes # 0.9 K/mm3 (0.1-1.0); Monocytes % 3.6 % (1.7-9.3); Neutrophils # 21.6 K/mm3 (1.8-7.8); Neutrophils % 91.2 % (37.0-80.0); Platelet Count 266 K/mm3 (142-424); Red Blood Count 3.49 M/mm3 (4.20-5.40); Red Cell Distribution Width 16.6 % (11.5-17.5); White Blood Count 23.7 K/mm3 (4.8-10.8)
[2020-07-01 08:09] LABS: Lactic Acid 2.1 mmol/L (0.7-2.1)
[2020-07-01 08:12] LABS: MANUAL DIFFERENTIAL MANUAL DIFFERENTIAL (MANUAL DIFF)
[2020-07-01 08:15] LABS: Troponin I 0.02 ng/ml (0.00-0.034)
[2020-07-01 08:16] LABS: ABG Base Excess -6.8 mmol/L (-2.4-2.3); ABG HCO3 19.4 mmhg (22.0-26.0); ABG Oxygen Saturation 97 % (90-100); ABG PCO2 39.4 mmhg (35.0-45.0); ABG PH 7.31 mmol/L (7.35-7.45); ABG PO2 101.6 mmhg (80-100); ABG TCO2 20.6 mmhg (23-27)
[2020-07-01 08:22] LABS: Oxygen 2.5L %
[2020-07-01 08:23] LABS: Allen's Test Acceptable; Source Right Radial
[2020-07-01 08:29] LABS: Lymphocytes % 23 % (10-50); Monocytes % 7 % (2-9); Neutrophils % 70 % (42-76); Platelet Estimate Normal; RBC Morphology Normal; Total Cells Counted 100
--- NOTE | 2020-07-01 08:39 | HMH.EDGENADL ---
ED Disposition Clinical Impression: Septic shock, Healthcare-associated pneumonia, COPD exacerbation Respiratory failure with hypoxia Qualifiers: Chronicity: acute Qualified Code(s): J96.01 - Acute respiratory failure with hypoxia Disposition: Admitted As Inpatient Condition on Discharge: Critical - Critical Care Critical Care Time: Yes Attestation: On 07/01/20, the high probability of a clinically significant, sudden or life threatening deterioration of the following system(s) required my full and direct attention, intervention and personal management. The time I documented below is in addition to time spent performing reported procedures but includes the following listed in this critical care notation. Total Critical Care Time: 45 Vital system(s) involved:: Respiratory Failure, Shock (Septic) My critical care processes included: Assessment & monitoring of V/S, Initial and Re-exams, Data Review/Interpretation, Coordinating Care, Medication Orders and management, Documentation Medical Decision Making - Medical Records Medical records reviewed: Yes: I reviewed the patient's medical records. MR Comment: Reviewed discharge summary from recent admission 06/04/2020 through 06/06/20. Patient had negative Doppler of her right leg and negative CTA on that admission. - Tao Inquiry Pt receiving controlled substance: No Vital Signs: 07/01/20 07:33 07/01/20 07:55 07/01/20 08:04 Temperature 98.0 F Temperature Source Oral Pulse Rate [Apical] 110 H 105 H Respiratory Rate 30 H 30 H Blood Pressure [Right Arm] 88/60 L 76/45 L Blood Pressure Mean [Right Arm] 69 55 Blood Pressure Source [Right Arm] Automatic Cuff Blood Pressure Position [Right Arm] Sitting 02 Sat by Pulse Oximetry 99 98 98 Oxygen Delivery Method Nasal Cannula Nasal Cannula Nasal Cannula Oxygen Flow Rate (LPM) 4 3 3 07/01/20 08:15 07/01/20 08:27 07/01/20 09:00 Temperature Temperature Source Pulse Rate [Apical] 103 H 102 H 95 H Respiratory Rate Blood Pressure [Right Arm] 82/32 L 88/38 L 94/50 L Blood Pressure Mean [Right Arm] 48 54 64 Blood Pressure Source [Right Arm] Automatic Cuff Automatic Cuff Automatic Cuff Blood Pressure Position [Right Arm] Sitting Sitting Sitting 02 Sat by Pulse Oximetry 96 95 95 Oxygen Delivery Method Nasal Cannula Nasal Cannula Nasal Cannula Oxygen Flow Rate (LPM) 3 3 3 07/01/20 09:38 Temperature Temperature Source Pulse Rate [Apical] 96 H Respiratory Rate 30 H Blood Pressure [Right Arm] 107/54 L Blood Pressure Mean [Right Arm] 71 Blood Pressure Source [Right Arm] Automatic Cuff Blood Pressure Position [Right Arm] Sitting 02 Sat by Pulse Oximetry 96 Oxygen Delivery Method Nasal Cannula Oxygen Flow Rate (LPM) 3 - Lab Data Lab results reviewed: Yes: I reviewed the patient's lab results. Lab Results 07/01/20 07:35: WBC 23.7 H*, RBC 3.49 L, Hgb 11.1 L, Hct 33.7 L, MCV 96.6, MCH 31.7 H, MCHC 32.9, RDW 16.6, Plt Count 266, MPV 7.5, Neut % (Auto) 91.2 H, Lymph % (Auto) 4.8 L, [place] % (Auto) 3.6, Eos % (Auto) 0.1, Baso % (Auto) 0.2, Neut # (Auto) 21.6 H, Lymph # (Auto) 1.2, [place] # (Auto) 0.9, Eos # (Auto) 0.0, Baso # (Auto) 0.1, Total Counted 100, Neutrophils % (Manual) 70, Lymphocytes % (Manual) 23, Monocytes % (Manual) 7, Platelet Estimate Normal, RBC Morphology Normal 07/01/20 07:35: Sodium 133 L, Potassium 4.8, Chloride 99, Carbon Dioxide 25, Anion Gap 13.8, BUN 48 H, Creatinine 2.30 H, Estimated Creat Clear 26, Estimated GFR 21 L, Est GFR ( Amer) 25 L, Glucose 139 H, Calcium 9.4, Total Bilirubin 1.1, AST 32, ALT 46, Alkaline Phosphatase 218 H, Troponin I 0.02, Total Protein 6.2 L, Albumin 3.2 L, Globulin 3.0, Albumin/Globulin Ratio 1.1 07/01/20 07:35: SARS-CoV-2 IgG Ab (Rapid) Negative, SARS-CoV-2 IgM Ab (Rapid) Negative 07/01/20 07:35: Procalcitonin 1.29 07/01/20 07:43: Lactate 2.1 07/01/20 08:03: Specimen Source Right radial, O2 % 2.5l, ABG pH 7.31 L, ABG pCO2 39.4, ABG pO2 101.6 H, ABG HCO3 19.4 L,
[2020-07-01 08:43] LABS: Procalcitonin 1.29 ng/mL (0.0-2.0)
[2020-07-01 08:47] LABS: Coronavirus 19 IgG Antibody Negative (Negative); Coronavirus 19 IgM Antibody Negative (Negative)
--- NOTE | 2020-07-01 08:49 | PC.NURSE ---
notified pharmacy of vancomycin consult, spoke with sangeetha
--- NOTE | 2020-07-01 09:08 | PC.NURSE ---
ROBINSON RAMIREZ spoke with Dr. Harp
--- NOTE | 2020-07-01 09:19 | HMH.PHACONS ---
- Pharmacy Consult Date: 07/01/20 Time: 09:19 Referring provider: DR. TOLBERT Reason for Consult:: VANCOMYCIN DOSING Allergies and ADEs:: Allergies Allergy/AdvReac Type Severity Reaction Status Date / Time Penicillins Allergy Severe I-RASH AND Verified 11/28/18 08:48 DIFFICULTY BREATHING oxycodone [From PERCOCET] Allergy Unknown Rash Verified 11/28/18 08:48 acetaminophen [From PERCOCET] AdvReac Unknown Gastrointestinal Verified 11/28/18 08:48 Upset codeine AdvReac Unknown keeps her Verified 11/28/18 08:48 awake Home Medications:: Home Medications Medication Instructions Recorded Confirmed Type carvedilol 6.25 mg tablet 6.25 mg PO BID 07/07/17 07/01/20 History furosemide 40 mg tablet 40 mg PO DAILY tab 07/07/17 07/01/20 History loratadine 10 mg tablet 10 mg PO DAILY 07/07/17 07/01/20 History montelukast 10 mg tablet 10 mg PO HS 07/07/17 07/01/20 History Ipratropium/Albuterol Sulfate 3 ml IH Q6H PRN 01/24/18 07/01/20 History [Iprat-Albut 0.5-3(2.5) mg/3 ml] Potassium Chloride [Klor-Con 10mEq 10 meq PO DAILY 01/24/18 07/01/20 History tab] Atorvastatin Calcium [Lipitor 20mg 20 mg PO HS 11/27/18 07/01/20 History Tab] Cholecalciferol (Vitamin D3) 50 mcg PO DAILY 06/04/20 07/01/20 History [Vitamin D3] lisinopriL [Lisinopril 5mg 5 mg PO DAILY 06/04/20 07/01/20 History Tablet] Height: 1.47 m Weight: 75.296 kg Laboratory Results:: Laboratory Results - last 24 hr 07/01/20 07:35: WBC 23.7 H*, RBC 3.49 L, Hgb 11.1 L, Hct 33.7 L, MCV 96.6, MCH 31.7 H, MCHC 32.9, RDW 16.6, Plt Count 266, MPV 7.5, Neut % (Auto) 91.2 H, Lymph % (Auto) 4.8 L, [place] % (Auto) 3.6, Eos % (Auto) 0.1, Baso % (Auto) 0.2, Neut # (Auto) 21.6 H, Lymph # (Auto) 1.2, [place] # (Auto) 0.9, Eos # (Auto) 0.0, Baso # (Auto) 0.1, Total Counted 100, Neutrophils % (Manual) 70, Lymphocytes % (Manual) 23, Monocytes % (Manual) 7, Platelet Estimate Normal, RBC Morphology Normal 07/01/20 07:35: Sodium 133 L, Potassium 4.8, Chloride 99, Carbon Dioxide 25, Anion Gap 13.8, BUN 48 H, Creatinine 2.30 H, Estimated Creat Clear 26, Estimated GFR 21 L, Est GFR ( Amer) 25 L, Glucose 139 H, Calcium 9.4, Total Bilirubin 1.1, AST 32, ALT 46, Alkaline Phosphatase 218 H, Troponin I 0.02, Total Protein 6.2 L, Albumin 3.2 L, Globulin 3.0, Albumin/Globulin Ratio 1.1 07/01/20 07:35: SARS-CoV-2 IgG Ab (Rapid) Negative, SARS-CoV-2 IgM Ab (Rapid) Negative 07/01/20 07:35: Procalcitonin 1.29 07/01/20 07:43: Lactate 2.1 07/01/20 08:03: Specimen Source Right radial, O2 % 2.5l, ABG pH 7.31 L, ABG pCO2 39.4, ABG pO2 101.6 H, ABG HCO3 19.4 L, ABG Total CO2 20.6 L, ABG O2 Saturation 97, ABG Base Excess -6.8 L, Jean Test Acceptable Medical History: Reports:: Asthma, Cancer (skin), Congestive Heart Failure, Chronic Obstructive Pulmonary Disease (COPD), Coronary Artery Disease, Gastroesophageal Reflux Disease(GERD), Hyperlipidemia, Hypertension, Lung Disease (COPD) Denies:: Diabetes Mellitus Type 1, Diabetes Mellitus Type 2, Internal Pacemaker, MRSA, Seizures Assessment and Plan - Assessment and plan all Dx Assessment and Plan for all problems:: Patient: Floor: Age: 74 yo Serum creatinine: 2.3 mg/dL Height: 58.0 Inches Weight (kg): 75.3 IBW (kg): 48.33 Dosing wt(kg): 75.3 Estimated Creatinine clearance (ml/min): 19.8 CRCL method: Cockcroft and Gault using ibw(default). Drug selected: Vancomycin Loading dose (mg): 0 Vd (liters): 60.2 (factor used: 0.8 L/kg) Aram (hr-1): 0.021 Half life (hrs): 33.01 Recommended dose: 1500 mg Interval: 48 hrs Infusion time (hrs): 2.0 Predicted peak (mcg/mL): 38.4 Predicted trough (mcg/mL): 14.62 Total body weight is being used for vancomycin dosing. Recommendations: Give Vancomycin 1500 mg q 48 hrs with an expected Cpeak of 38.4 mcg/ml and an expected Ctrough of 14.62 mcg/ml
--- NOTE | 2020-07-01 10:29 | PC.NURSE ---
contacted lab to check on status of covid swab, lab staff states approx 45 minutes left.
--- NOTE | 2020-07-01 11:11 | PC.NURSE ---
contacted lab to check on status covid swab, lab states the swab errored out and they are having to rerun it.
--- NOTE | 2020-07-01 11:49 | PC.NURSE ---
notified ER MD of pt BP 88/62 ER MD states will place order for Levophed drip will continue to monitor
[2020-07-01 11:51] LABS: Reflex Lactic Add Lactic Reflex
[2020-07-01 12:11] LABS: Troponin I 0.02 ng/ml (0.00-0.034)
--- NOTE | 2020-07-01 12:31 | PC.NURSE ---
spoke with Brenda in the lab who states pt covid swab has approx 77 minutes left, states the swab in on the bdmax analyzer
[2020-07-01 13:06] LABS: Lactic Acid Follow Up (RFLX 1) 0.7 mmol/L (0.7-2.1)
--- NOTE | 2020-07-01 13:35 | PC.NURSE ---
levophed drip increased to 6mcg/min to achieve/maintain sbp of 90 or above, will continue to monitor.
--- NOTE | 2020-07-01 13:40 | PC.NURSE ---
notified ER MD pt has not urinated since arrival to ED, pt states she has not felt the need to void since 9:30 pm last night. ER MD gave verbal order for catheter
--- NOTE | 2020-07-01 13:47 | PC.NURSE ---
douglas from lab called and advised pt covid negative swab
--- NOTE | 2020-07-01 13:55 | PC.NURSE ---
notified JESSICA Velez on second floor that pt is ready for admission, pt covid swab is negative per lab.
[2020-07-01 14:18] LABS: Microscopic, Urine URINE MICROSCOPIC (MICROSCOPIC)
[2020-07-01 14:24] LABS: Appearance,Urine CLEAR (Clear); Blood, Urine Negative (Negative); Color,Urine YELLOW (Yellow); Glucose,Urine (UA) Negative (Negative); Ketones,Urine TRACE (Negative); Leukocyte Esterase,Urine Negative (Negative); Nitrate,Urine Negative (Negative); Protein,Urine Negative (Negative); Specific Gravity, Urine 1.025 (1.005-1.030); Urobilinogen,Urine 0.2 EU/dl (0.2)
--- NOTE | 2020-07-01 14:28 | PC.NURSE ---
Pt arrived to the floor at this time.
[2020-07-01 14:33] LABS: Bilirubin,Urine 1+ (Negative)
[2020-07-01 14:37] LABS: RBC,Urine Occasional #/hpf (0-3)
--- NOTE | 2020-07-01 15:51 | PC.NURSE ---
Sputum cup at bedside Pt instructed to obtain sample, verbalized understanding.
--- NOTE | 2020-07-01 17:14 | HMH.HP ---
*Admission Date: 07/01/20 *Chief complaint: Shortness of breath *History of present illness: 74-year-old female presented to the emergency department this morning after developing rapid onset of shortness of breath both at rest and with exertion while at home in the preceding 24 hours. Her dyspnea did not respond to home aerosol treatments. Patient has underlying severe COPD and uses oxygen intermittently at home. She reports lack of effect of supplemental oxygen. Patient is able to check home pulse oximetry and when her oximeter read sats of 73% patient presented to the emergency department. Patient underwent evaluation in the emergency department and was found to have pneumonia of the left lung. White blood cell count was elevated at 23,000. Decision was made to admit the patient. Patient ruled out for Covid. While still waiting for bed in the ER patient had development of hypotension and is now on Levophed for pressure support. [facility] History I have reviewed the patient's past medical history: Yes Medical History: Reports:: Asthma, Cancer (skin), Congestive Heart Failure, Chronic Obstructive Pulmonary Disease (COPD), Coronary Artery Disease, Gastroesophageal Reflux Disease(GERD), Hyperlipidemia, Hypertension, Lung Disease (COPD) Denies:: Diabetes Mellitus Type 1, Diabetes Mellitus Type 2, Internal Pacemaker, MRSA, Seizures *Have you ever received a pneumonia vaccine?: Yes *Have you received a flu vaccine this season?: Yes Other Medical History: Reports: Arthritis. Denies: Blood Transfusion Reaction Laterality Cases: Bilateral: Breast Biopsy, Other Other Surgeries: Yes: Angioplasty, Appendectomy, Cholecystectomy, Colonoscopy, Dilation and Curettage, Hysterectomy-Total, Tubal Ligation, Other. No: Pacemaker Amputation: No Fractures: No - *Social History Last grade of school completed: High school graduate Smoking Status: Current every day smoker Tobacco Type: cigarettes # Packs/Day (cigarettes): 1 Alcohol Intake: never Alcohol Intake Frequency:: other Substance Use Type: denies use *Occupational Status:: retired Housing: house Household Members: family *Travel in the last 8 weeks: Inside the [place] Family Hx:: Coronary Artery Disease, Diabetes, Heart Attack, Hyperlipidemia, Hypertension Review of Systems - Constitutional Reports chills, Reports lack of energy, Denies anorexia, Denies body ache(s) - Eyes Denies blurry vision, Denies itchy eyes - ENT Denies ear pain, Denies nosebleed - *Cardiovascular Reports leg swelling, Reports foot swelling, Denies chest pain, Denies chest pain at rest, Denies chest pain with activity - *Respiratory Reports chest congestion, Reports cough, Reports shortness of breath, Reports shortness of breath with activity, Reports wheezing, Denies change in phlegm color, Denies excessive phlegm production - *Gastrointestinal Denies belching, Denies bloating, Denies change in bowel habits - *Genitourinary Denies difficulty urinating, Denies blood in urine - *Musculoskeletal Reports abnormal walking (Secondary to swelling in the right leg), Reports limited joint movement, Denies muscle weakness, Denies body aches, Denies neck pain - *Neurologic Reports abnormal walking Meds Home Medications Medication Instructions Recorded Confirmed Type carvedilol 6.25 mg tablet 6.25 mg PO BID 07/07/17 07/01/20 History furosemide 40 mg tablet 40 mg PO DAILY tab 07/07/17 07/01/20 History loratadine 10 mg tablet 10 mg PO DAILY 07/07/17 07/01/20 History montelukast 10 mg tablet 10 mg PO HS 07/07/17 07/01/20 History Ipratropium/Albuterol Sulfate 3 ml IH Q6H PRN 01/24/18 07/01/20 History [Iprat-Albut 0.5-3(2.5) mg/3 ml] Potassium Chloride [Klor-Con 10mEq 10 meq PO DAILY 01/24/18 07/01/20 History tab] Atorvastatin Calcium [Lipitor 20mg 20 mg PO HS 11/27/18 07/01/20 History Tab] Cholecalciferol (Vitamin D3) 50 mcg PO DAILY 06/04/20 07/01/20 History [Vitamin D3] lisinopriL [Lisinopri
--- NOTE | 2020-07-01 20:40 | PC.NURSE ---
patient has done okay since arrival to floor. upon arrival was noted to be wheezing but this cleared after breathing treatments. labored breathing noted. did require a little assistance with rolling. tolerating water well. levophed has not been titrated. blood pressure noted to be up and down. abraisons noted to bilateral elbows she stated they were there because she pushes up with her elbows. small area on r forehead she stated was a past skin cancer. vitals stable.
--- NOTE | 2020-07-01 20:54 | PC.WOUNDNOTE ---
Wound Location: right side of forehead, past skin cancer
--- NOTE | 2020-07-01 20:55 | PC.WOUNDNOTE ---
Wound Location: r elbow abrasion. scabbed over
--- NOTE | 2020-07-01 20:55 | PC.WOUNDNOTE ---
Wound Location: l side elbow abrasions, scabbed over
--- NOTE | 2020-07-01 20:56 | PC.WOUNDNOTE ---
Wound Location: abraison to l elbow
[2020-07-02] VITALS (32 sets, daily range): BP systolic 81–140; BP diastolic 35–67; PULSE 106–119; RESP 20–34; TEMP 36.3–36.9; O2SAT 92–100; BMI 41.5; BMI 41.6
--- NOTE | 2020-07-02 03:22 | PC.NURSE ---
Pt c/o soa. R 24. Breathing more labored. O2 desat to 80s. O2 titrated to 3 L O2 NC. O2 is currently 94%. Pt has coughed a few times. Pt was repositioned in bed. Levophed has been titrated per protocol and is currently on standby. VS are as follows: BP 157/69, HR 119, R 24. NS infusing @ 150 ml/hr. Pt states that her soa has improved.
--- NOTE | 2020-07-02 05:05 | PC.NURSE ---
Pt was placed back on Levophed gtt and it is currently infusing @ 4 mcg/min. Rhonchi noted t/o anterior lobes. Pt remains on 3L O2 NC. She remains tachypneic. HR is Tachycardic. Levophed gtt titration 2130 8 mcg/min 2230 7 mcg/min 0030 6 mcg/min 0050 4 mcg/min 0150 2 mcg/min 0300 standby 0400 2 mcg/min 0430 4 mcg/min
[2020-07-02 07:45] LABS: Anion Gap 13.5 mEq/L (5-15); Blood Urea Nitrogen 42 mg/dl (7-17); Carbon Dioxide 16 mmol/L (22.0-30.0); Chloride 112 mmol/L (98-107); Creatinine Clearance Estimated 21 mL/min (50-200); Estimated Glomerular Filt Rate 34 ml/min (>60); GFR (African American) 41 ML/MIN (>60); Glucose 58 mg/dl (74-100); Potassium 5.5 mmoL/L (3.5-5.1); Sodium 136 mmol/L (136-145)
[2020-07-02 07:49] LABS: Calcium 8.2 mg/dl (8.4-10.2)
--- NOTE | 2020-07-02 07:50 | HMH.ACPN2 ---
Internal Medicine - PN: Subj *Date: 07/02/20 *Time: 07:50 Interval history: Patient states she feels no different than upon admission yesterday afternoon. She remains on Levophed drip and has developed some tachycardia. Patient normally takes carvedilol at home. She had increase in her supplemental oxygen overnight. Exam Vital signs and Labs for Last 24 Hours: Temp Pulse Resp BP Pulse Ox 97.4 F L 115 H 22 96/63 L 93 L 07/02/20 05:00 07/02/20 07:00 07/02/20 07:00 07/02/20 07:00 07/02/20 07:00 Laboratory Results - last 24 hr 07/01/20 07:35: WBC 23.7 H*, RBC 3.49 L, Hgb 11.1 L, Hct 33.7 L, MCV 96.6, MCH 31.7 H, MCHC 32.9, RDW 16.6, Plt Count 266, MPV 7.5, Neut % (Auto) 91.2 H, Lymph % (Auto) 4.8 L, [place] % (Auto) 3.6, Eos % (Auto) 0.1, Baso % (Auto) 0.2, Neut # (Auto) 21.6 H, Lymph # (Auto) 1.2, [place] # (Auto) 0.9, Eos # (Auto) 0.0, Baso # (Auto) 0.1, Total Counted 100, Neutrophils % (Manual) 70, Lymphocytes % (Manual) 23, Monocytes % (Manual) 7, Platelet Estimate Normal, RBC Morphology Normal 07/01/20 07:35: Sodium 133 L, Potassium 4.8, Chloride 99, Carbon Dioxide 25, Anion Gap 13.8, BUN 48 H, Creatinine 2.30 H, Estimated Creat Clear 26, Estimated GFR 21 L, Est GFR ( Amer) 25 L, Glucose 139 H, Calcium 9.4, Total Bilirubin 1.1, AST 32, ALT 46, Alkaline Phosphatase 218 H, Troponin I 0.02, Total Protein 6.2 L, Albumin 3.2 L, Globulin 3.0, Albumin/Globulin Ratio 1.1 07/01/20 07:35: SARS-CoV-2 IgG Ab (Rapid) Negative, SARS-CoV-2 IgM Ab (Rapid) Negative 07/01/20 07:35: Procalcitonin 1.29 07/01/20 07:43: Lactate 2.1 07/01/20 08:03: Specimen Source Right radial, O2 % 2.5l, ABG pH 7.31 L, ABG pCO2 39.4, ABG pO2 101.6 H, ABG HCO3 19.4 L, ABG Total CO2 20.6 L, ABG O2 Saturation 97, ABG Base Excess -6.8 L, Jean Test Acceptable 07/01/20 11:10: Troponin I 0.02 07/01/20 12:32: Lactate 0.7 07/01/20 13:45: Urine Color Yellow, Urine Appearance Clear, Urine pH 5.0, Ur Specific [place] 1.025, Urine Protein Negative, Urine Glucose (UA) Negative, Urine Ketones Trace, Urine Blood Negative, Urine Nitrate Negative, Urine Bilirubin 1+ A, Urine Urobilinogen 0.2, Ur Leukocyte Esterase Negative, Urine RBC Occasional, Urine WBC 3-5, Ur Squamous Epith Cells 3-5 07/02/20 05:45: Sodium 136, Potassium 5.5 H, Chloride 112 H, Carbon Dioxide 16 L D, Anion Gap 13.5, BUN 42 H, Creatinine 1.50 H D, Estimated Creat Clear 21, Estimated GFR 34 L, Est GFR ( Amer) 41 L D, Glucose 58 L D, Calcium 8.2 L D I & O for Last 24 hours: Intake & Output 06/29/20 06/30/20 07/01/20 07/02/20 11:59 11:59 11:59 11:59 Intake Total 2964 / 2964 Output Total 750 / 750 Balance 2214 / 2214 Weight 166 lb 198 lb 1.013 oz Microbiology Reports for the Last 24 Hours: Microbiology 07/01/20 08:19 Nasopharyngeal Coronavirus COVID-19 PCR - Final Narrative: She looks ill. Patient has poor aeration. Rales in the left lung. Heart rate is tachycardic. Abdomen is soft. Right lower extremity has 3-4+ edema to the thigh Assessment and Plan (1) Pneumonia Status: Acute Qualifiers: Pneumonia type: due to unspecified organism Laterality: left Lung location: upper lobe of lung Qualified Code(s): J18.9 - Pneumonia, unspecified organism Category: Medical Code(s): J18.9 - Pneumonia, unspecified organism (2) Respiratory failure with hypoxia Status: Acute Qualifiers: Chronicity: acute on chronic Qualified Code(s): J96.21 - Acute and chronic respiratory failure with hypoxia Category: Medical Code(s): J96.91 - Respiratory failure, unspecified with hypoxia (3) Septic shock Status: Acute Category: Medical Code(s): A41.9 - Sepsis, unspecified organism; R65.21 - Severe sepsis with septic shock (4) Acute respiratory failure Status: Acute Qualifiers: Respiratory failure complication: hypoxia Qualified Code(s): J96.01 - Acute respiratory failure with hypoxia Category: Medical Code(s): J96.00 - Acute respiratory f
[2020-07-02 08:05] LABS: Basophils # 0.1 K/mm3 (0-0.2); Basophils % 0.3 % (0.1-2.0); Eosinophils # 0.1 K/mm3 (0.0-0.4); Eosinophils % 0.2 % (0.1-12.0); Hematocrit 33.3 % (37.0-47.0); Hemoglobin 10.3 g/dL (12.2-16.2); Lymphocytes # 0.4 K/mm3 (0.7-4.5); Lymphocytes % 1.3 % (10-50); Mean Corpuscular HGB Conc 30.9 g/dL (31.8-35.4); Mean Corpuscular Hemoglobin 31.7 pg (27.0-31.2); Mean Corpuscular Volume 102.7 fl (81-99); Mean Platelet Volume 8.8 fl (7.4-10.4); Monocytes # 1.1 K/mm3 (0.1-1.0); Monocytes % 3.9 % (1.7-9.3); Neutrophils # 26.9 K/mm3 (1.8-7.8); Neutrophils % 94.4 % (37.0-80.0); Platelet Count 215 K/mm3 (142-424); Red Blood Count 3.24 M/mm3 (4.20-5.40); Red Cell Distribution Width 16.7 % (11.5-17.5); White Blood Count 28.5 K/mm3 (4.8-10.8)
[2020-07-02 08:27] LABS: MANUAL DIFFERENTIAL MANUAL DIFFERENTIAL (MANUAL DIFF)
[2020-07-02 09:03] LABS: Lymphocytes % 1 % (10-50); Monocytes % 7 % (2-9); Neutrophils % 89 % (42-76); Total Cells Counted 100
[2020-07-02 09:04] LABS: Macrocytosis 1+; Platelet Estimate Normal
--- NOTE | 2020-07-02 12:20 | HMH.PHAVTE ---
[facility] Pharmacy VTE Monitoring - Patient Demographics Admission date: 07/01/20 Report Date: 07/02/20 Time: 12:20 Allergies/Adverse Reactions: Patient Allergies Penicillins Allergy (Severe, Verified 11/28/18 08:48) I-RASH AND DIFFICULTY BREATHING oxycodone [From PERCOCET] Allergy (Unknown, Verified 11/28/18 08:48) Rash acetaminophen [From PERCOCET] Adverse Reaction (Unknown, Verified 11/28/18 08:48) Gastrointestinal Upset codeine Adverse Reaction (Unknown, Verified 11/28/18 08:48) keeps her awake Height: 1.47 m Weight: 89.84 kg Patient Problems: Current Active Problems Acute respiratory failure (Acute) COPD exacerbation (Acute) Severe sepsis with acute organ dysfunction (Acute) Septic shock (Acute) Healthcare-associated pneumonia (Acute) Respiratory failure with hypoxia (Acute) Pneumonia (Acute) Acute kidney injury (Acute) Chronic obstructive lung disease (Chronic) Pulmonary hypertension (Chronic) Hypertensive heart disease (Chronic) - VTE Risk Labs: VTE Related Lab Results Hgb 10.3 g/dL (12.2-16.2) L 07/02/20 05:45 Hct 33.3 % (37.0-47.0) L 07/02/20 05:45 Plt Count 215 K/mm3 (142-424) 07/02/20 05:45 BUN 42 mg/dl (7-17) H 07/02/20 05:45 Creatinine 1.50 mg/dl (0.52-1.04) H D 07/02/20 05:45 Estimated Creat Clear 21 mL/min (50-200) 07/02/20 05:45 - Prophylaxis VTE Prophylaxis Ordered?: Yes Types of VTE Prophylaxis: TEDS Knee High Location of Applied Device: Bilateral Lower Extremeties
--- NOTE | 2020-07-02 12:29 | HMH.PHAINT ---
MEDICATION RECONCILIATION COMPLETED ON PATIENT USING EXTERNAL FILL HISTORY FROM PHARMACY AND DISCHARGE SUMMARY FROM PREVIOUS VISIT. -ACE BARNETTD
--- NOTE | 2020-07-02 17:23 | PC.NURSE ---
Pt concerned grand daughter Helen Gallagher called and asked for an update and information on pt No password set up at this time. Spoke with PT, Kelsi gave verbal permission in front of pt daughter to speak with Helen.
[2020-07-02 17:26] LABS: ABG PCO2 38.6 mmhg (35.0-45.0); ABG PH 7.16 mmol/L (7.35-7.45)
[2020-07-02 17:27] LABS: ABG Base Excess -14.5 mmol/L (-2.4-2.3); ABG HCO3 13.3 mmhg (22.0-26.0); ABG Oxygen Saturation 92 % (90-100); ABG TCO2 14.5 mmhg (23-27); Oxygen 3LPM %
--- NOTE | 2020-07-02 17:42 | PC.NURSE ---
Called and spoke with Dr Harp at 1442 in regards to patient condition. PT remains tachycardic at 110-119. tachypneic at 34. pt has only has 150ml of urine out since 0700. pt bp is currently 97/57. pt lung sounds contain scattered rhonchi.pt has 4+ edema in rle. new orders decrease ivf to 100ml/hr.
--- NOTE | 2020-07-02 17:48 | PC.NURSE ---
notified dr ortega of critical abg at 3400. new orders to add 100of bicarb to 1 liter of ns.
[2020-07-02 17:56] LABS: Chloride 113 mmol/L (98-107); Potassium 5.5 mmoL/L (3.5-5.1); Sodium 138 mmol/L (136-145)
[2020-07-02 17:58] LABS: Blood Urea Nitrogen 50 mg/dl (7-17); Creatinine Clearance Estimated 14 mL/min (50-200); Estimated Glomerular Filt Rate 22 ml/min (>60); GFR (African American) 27 ML/MIN (>60)
[2020-07-02 17:59] LABS: Anion Gap 15.5 mEq/L (5-15); Calcium 8.4 mg/dl (8.4-10.2); Carbon Dioxide 15 mmol/L (22.0-30.0); Glucose 82 mg/dl (74-100)
--- NOTE | 2020-07-02 18:31 | PC.NURSE ---
pt placedo n 100% nrb per md orders at this time.
--- NOTE | 2020-07-02 19:14 | PC.NURSE ---
Levophed titrations throughout shift. 0850 up to 4 1420 6 1840 titrated up to 8
--- NOTE | 2020-07-02 21:24 | PC.NURSE ---
1950- Titrated Levophed to 9 mcg/min 1999- BP: 97/51; Pt. able to follow commands such as to open eyes and squeeze hands, however pt. unable to safely swallow po meds or water (e.g. pt. blew air into straw instead of taking water in; pt. spit water out when used without a straw). She is able to state her full name and but is unable to tell me the current year or location. NRB O2 sat 100%.
--- NOTE | 2020-07-02 21:30 | PC.NURSE ---
194- 47 1949- Titrated Levophed to 9 mcg/min 1999- BP: 114/55; Pt. able to follow commands such as to open eyes and squeeze hands, however pt. unable to safely swallow po meds or water (e.g. pt. blew air into straw instead of taking water in; pt. spit water out when used without a straw). She is able to state her full name and but is unable to tell me the current year or location. NRB O2 sat 100%.
--- NOTE | 2020-07-02 22:24 | PC.NURSE ---
2145- BP: 94/42 2200- BP: 97/40 2215- BP: 100/35 (MAP: 56) Titrated Levophed to 10 mcg/min
[2020-07-03] VITALS (17 sets, daily range): BP systolic 78–126; BP diastolic 34–99; PULSE 100–140; RESP 18–28; TEMP 36.3–36.6; O2SAT 88–100; BMI 41.7
--- NOTE | 2020-07-03 01:55 | PC.NURSE ---
0014- Placed pt. on 4.5l nc with o2 sat 90-92% to allow pt. to have a break and attempt to drink 0100- o2 sat 96% on 4.5l nc 0130- pt. became increasingly agitated and o2 sat slowly decreased (87-88%), placed back on 100% nrb with o2 sat 100% pt. resting and calm at this time.
[2020-07-03 03:51] LABS: POC Glucose,Bedside 239 (70-110)
--- NOTE | 2020-07-03 06:23 | PC.NURSE ---
0330- pt. became tachycardic with HR: 140-142. Pt. can follow commands such as opens eyes; breathing pattern unchanged with RR: 20-22; o2 sat 100% NRB. BLE pitting edema still present. UO 25 ml thus far. 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 did not take her PO metoprolol. New order: Lopressor 5 mg IV X1 now for tachycardia. 0600- administered Lopressor 0630- BP: 129/49; MD Loyd at bedside
--- NOTE | 2020-07-03 06:34 | XR_ITS ---
PROCEDURE: XR CHEST PORTABLE CLINICAL HISTORY: pneumonia progress Follow-up pneumonia COMPARISON: CR XR CHEST 2V from 12/31/2019 CR XR CHEST PORTABLE from 06/04/[address] ANGIO CHEST from 06/04/2020 CR XR CHEST PORTABLE from 07/01/2020 FINDINGS: There has been interval development opacification of the left lung consistent with left-sided pneumonia. The right lung is clear. There may be a small left pleural effusion. IMPRESSION: Increasing consolidation of the left lung consistent with worsening pneumonia with possible effusion Dictated by: Jean Slater MD 07/03/2020 07:18 Jean Slater MD in OV 07/03/2020 07:18
[2020-07-03 06:36] LABS: Basophils # 0.1 K/mm3 (0-0.2); Basophils % 0.2 % (0.1-2.0); Eosinophils % 0.1 % (0.1-12.0); Hematocrit 28.7 % (37.0-47.0); Lymphocytes # 0.4 K/mm3 (0.7-4.5); Lymphocytes % 1.4 % (10-50); Mean Corpuscular HGB Conc 31.7 g/dL (31.8-35.4); Mean Corpuscular Hemoglobin 32.2 pg (27.0-31.2); Mean Corpuscular Volume 101.5 fl (81-99); Mean Platelet Volume 8.1 fl (7.4-10.4); Monocytes # 0.8 K/mm3 (0.1-1.0); Monocytes % 2.9 % (1.7-9.3); Neutrophils # 26.5 K/mm3 (1.8-7.8); Neutrophils % 95.4 % (37.0-80.0); Platelet Count 280 K/mm3 (142-424); Red Blood Count 2.83 M/mm3 (4.20-5.40); Red Cell Distribution Width 16.5 % (11.5-17.5); White Blood Count 27.8 K/mm3 (4.8-10.8)
--- NOTE | 2020-07-03 06:41 | PC.NURSE ---
0641- titrated Levophed to 6 mcg/min at this time
[2020-07-03 06:48] LABS: Alanine Aminotransferase 29 U/L (12-78); Albumin Level 2.4 g/dl (3.5-5.0); Alkaline Phosphatase 163 U/L (38-126); Anion Gap 15.7 mEq/L (5-15); Aspartate Amino Transferase 28 U/L (14-36); Bilirubin,Direct 0.7 mg/dl (0.0-0.4); Bilirubin,Total 0.7 mg/dl (0.2-1.3); Blood Urea Nitrogen 55 mg/dl (7-17); Carbon Dioxide 20 mmol/L (22.0-30.0); Chloride 105 mmol/L (98-107); Creatinine Clearance Estimated 11 mL/min (50-200); Estimated Glomerular Filt Rate 17 ml/min (>60); GFR (African American) 21 ML/MIN (>60); Glucose 258 mg/dl (74-100); Potassium 5.7 mmoL/L (3.5-5.1); Sodium 135 mmol/L (136-145); Total Protein,Serum 5.2 g/dl (6.3-8.2)
[2020-07-03 06:57] LABS: Hemoglobin 9.1 g/dL (12.2-16.2); MANUAL DIFFERENTIAL MANUAL DIFFERENTIAL (MANUAL DIFF)
--- NOTE | 2020-07-03 07:31 | HMH.ACPN2 ---
Internal Medicine - PN: Subj *Date: 07/03/20 *Time: 07:31 Interval history: Patient condition began to worsen yesterday evening. She is noted to have increased work of breathing and at that time was able to answer questions. Overnight her level of consciousness has decreased and this morning she does not respond to verbal or tactile stimulus. Patient is been placed on a nonrebreather per my order to try to alleviate her work of breathing which was in response to the medic Bolick acidosis that she had developed from her illness. Patient is also had increasing rhonchi that can be heard standing at bedside. Exam Vital signs and Labs for Last 24 Hours: Temp Pulse Resp BP Pulse Ox 97.4 F L 140 H 20 112/54 L 100 07/03/20 04:00 07/03/20 04:00 07/03/20 04:00 07/03/20 04:00 07/03/20 04:00 Laboratory Results - last 24 hr 07/02/20 05:45: WBC 28.5 H*, RBC 3.24 L, Hgb 10.3 L, Hct 33.3 L, MCV 102.7 H, MCH 31.7 H, MCHC 30.9 L, RDW 16.7, Plt Count 215, MPV 8.8, Neut % (Auto) 94.4 H, Lymph % (Auto) 1.3 L, [place] % (Auto) 3.9, Eos % (Auto) 0.2, Baso % (Auto) 0.3, Neut # (Auto) 26.9 H, Lymph # (Auto) 0.4 L, [place] # (Auto) 1.1 H, Eos # (Auto) 0.1, Baso # (Auto) 0.1, Total Counted 100, Neutrophils % (Manual) 89 H, Band Neutrophils % 2.0, Lymphocytes % (Manual) 1 L, Monocytes % (Manual) 7, Metamyelocytes % 1.0, Platelet Estimate Normal, Macrocytosis 1+ 07/02/20 05:45: Sodium 136, Potassium 5.5 H, Chloride 112 H, Carbon Dioxide 16 L D, Anion Gap 13.5, BUN 42 H, Creatinine 1.50 H D, Estimated Creat Clear 21, Estimated GFR 34 L, Est GFR ( Amer) 41 L D, Glucose 58 L D, Calcium 8.2 L D 07/02/20 16:51: O2 % 3lpm, ABG pH 7.16 L*, ABG pCO2 38.6, ABG pO2 72.0 L, ABG HCO3 13.3 L, ABG Total CO2 14.5 L, ABG O2 Saturation 92, ABG Base Excess -14.5 L 07/02/20 17:20: Sodium 138, Potassium 5.5 H, Chloride 113 H, Carbon Dioxide 15 L, Anion Gap 15.5 H, BUN 50 H, Creatinine 2.20 H D, Estimated Creat Clear 14, Estimated GFR 22 L, Est GFR ( Amer) 27 L D, Glucose 82 D, Calcium 8.4 07/03/20 03:32: POC Glucose 239 H 07/03/20 05:44: WBC 27.8 H*, RBC 2.83 L, Hgb 9.1 L D, Hct 28.7 L, MCV 101.5 H, MCH 32.2 H, MCHC 31.7 L, RDW 16.5, Plt Count 280 D, MPV 8.1, Neut % (Auto) 95.4 H, Lymph % (Auto) 1.4 L, Butler % (Auto) 2.9, Eos % (Auto) 0.1, Baso % (Auto) 0.2, Neut # (Auto) 26.5 H, Lymph # (Auto) 0.4 L, Butler # (Auto) 0.8, Eos # (Auto) 0.0, Baso # (Auto) 0.1 07/03/20 05:44: Sodium 135 L, Potassium 5.7 H, Chloride 105, Carbon Dioxide 20 L D, Anion Gap 15.7 H, BUN 55 H, Creatinine 2.70 H D, Estimated Creat Clear 11, Estimated GFR 17 L*, Est GFR ( Amer) 21 L D, Glucose 258 H D, Calcium 8.0 L, Total Bilirubin 0.7, Direct Bilirubin 0.7 H, Conjugated Bilirubin 0.0, Indirect Bilirubin 0.0, Unconjugated Bilirubin 0.0, AST 28, ALT 29 D, Alkaline Phosphatase 163 H, Total Protein 5.2 L, Albumin 2.4 L I & O for Last 24 hours: Intake & Output 06/30/20 07/01/20 07/02/20 07/03/20 11:59 11:59 11:59 11:59 Intake Total 3204 / 3204 1088.502 / 1088.502 Output Total 750 / 750 75 / 75 Balance 2454 / 2454 1013.502 / 1013.502 Weight 166 lb 198 lb 1.013 oz 198 lb 10.889 oz - Constitutional no acute distress - *Routine Respiratory Exam Present: accessory muscle use, prolonged expiratory phase, rales (Left lung), rhonchi (Left lung), diminished air movement - *Routine Cardiovascular Exam Present: RRR - *Routine Abdominal Exam Present: soft. Absent: tenderness Assessment and Plan (1) Pneumonia Status: Acute Qualifiers: Pneumonia type: due to unspecified organism Laterality: left Lung location: upper lobe of lung Qualified Code(s): J18.9 - Pneumonia, unspecified organism Category: Medical Code(s): J18.9 - Pneumonia, unspecified organism (2) Respiratory failure with hypoxia Status: Acute Qualifiers: Chronicity: acute on chronic Qualified Code(s): J96.21 - Acute and chronic respiratory failure with hypoxia Category: Medical Code(s)
[2020-07-03 07:39] LABS: ABG HCO3 18.5 mmhg (22.0-26.0); ABG Oxygen Saturation 94 % (90-100); ABG PO2 76.4 mmhg (80-100); ABG TCO2 20.3 mmhg (23-27)
[2020-07-03 07:45] LABS: Allen's Test Patient Unable; Oxygen 50% %
[2020-07-03 07:46] LABS: Source Right Radial
[2020-07-03 07:47] LABS: ABG PCO2 59.5 mmhg (35.0-45.0); ABG PH 7.11 mmol/L (7.35-7.45)
--- NOTE | 2020-07-03 08:40 | SW/DCPLANNER ---
DR SUBRAMANIAN CALLED DAUGHTER THIS MORNING AND INFORMED HER OF HER MOTHERS CONDITION, STATING HER CONDITION IS DECLINING AND HE WANTS HER TO MAKE HER COMFORT CARE.. HE TOLD HER THAT SHE NEEDS TO NOTIFY OTHER FAMILY MEMBERS THAT SHE IS NOT GOOD.. DAUGHTER IS ON HER WAY UP TO THE HOSPITAL..
[2020-07-03 08:51] LABS: POC Glucose,Bedside 266 (70-110)
[2020-07-03 09:57] LABS: Lymphocytes % 16 % (10-50); Monocytes % 4 % (2-9); Neutrophils % 75 % (42-76); Total Cells Counted 100
[2020-07-03 09:58] LABS: Anisocytosis 1+; Hypochromasia 1+; Platelet Estimate Normal
--- NOTE | 2020-07-03 19:05 | HMH.DEATH ---
Pronouncement Note - Date and Time of Date of : 07/03/20 Time of : 18:45 - PCOD Preliminary cause of : Pneumonia (septic shock) - Additional Data Confirmation of : no pulse, no respirations, no heart sounds, pupils fixed and dilated Family: at bedside Attending physician: Mike Harp MD Was code activated?: No
--- NOTE | 2020-07-03 20:09 | PC.NURSE ---
FAMILY ARRIVED THIS MORNING AT 0930 AND PT'S DAUGHTER MADE THE DECISION TO MAKE HER MOTHER A DNR AND SHE STATED SHE WANTED HER MOTHER TO BE KEPT COMFORTABLE. AT THIS SAME TIME DAUGHTER STATED THAT HER AUNT WAS TRAVELING FROM [place] AND WAS SUPPOSE TO ARRIVE AROUND NOON TOMORROW. FAMILY IS AWARE THAT PT IS ON THE LEVOPHED DRIP AND THAT IS WHAT IS MAINTAINING HER BP AT THIS TIME. DAUGHTER AND GRANDDAUGHTERS STATED THEY WERE INTERESTED IN HOSPICE CARE B/C HOSPICE TOOK SUCH GOOD CARE OF PT'S . IT WAS EXPLAINED TO FAMILY THAT HOSPICES GOAL WOULD BE TO KEEP PT COMFORTABLE AND THEY STATED THEY UNDERSTOOD AND THEY WERE OKAY WITH STOPPING ALL ANTIBIOTICS AND IVF'S BUT REQUESTED IF PT COULD STAY ON THE DRIP UNTIL PT'S SISTER ARRIVED TOMORROW TO SEE PT. AFTER DNR WAS SIGNED PCP WAS NOTIFIED FOR SOME COMFORT MEDICATIONS. PT WAS BREATHING 40/MIN AND SHE WAS MOANING/FACIAL GRIMACING. PCP ORDERED ATIVAN AND MORPHINE. AFTER FIRST ADMINISTRATION PT BECAME MORE RELAXED. LEVOPHED DRIP WAS TITRATED FREQUENTLY TO MAINTAIN BP. FAMILY AT BEDSIDE. HOSPICE AND NURSING STAFF TALKED TO FAMILY TO LET THEM KNOW THAT THERE WAS NO GUARANTEE THAT THE LEVOPHED DRIP WOULD KEEP PT ALIVE UNTIL PT'S SISTER ARRIVED. PT HAD WENT FROM [facility] WITHIN JUST A FEW HOURS AFTER GOING COMFORT CARE. FAMILY STATED THEY UNDERSTOOD AND THEIR MAIN FOCUS WAS FOR PT TO BE COMFORTABLE. FAMILY NOTIFIED THE SISTER TO LET HER KNOW AND SHE SAID HER GOODBYES TO PT OVER THE PHONE JUST IN CASE SHE WAS UNABLE TO MAKE IT IN TIME. BP AND HR STARTED TO STEADILY DECLINE AROUND 1400 EVEN THOUGH THE DRIP WAS CONTINUOUSLY HAVING TO BE INCREASED. AT 1800 LEVOPHED DRIP WAS AT IT'S MAX AT 30MCG/MIN. BP WAS 78/34 AT 1800. 1815 49/28. HR DROPPED FROM 120 TO 71. PT HAS NOT HAD ANY UOP AT ALL THIS SHIFT. PT PASSED PEACEFULLY AT 1845 WITH FAMILY AT BEDSIDE. PCP NOTIFIED. ER PHYSICIAN WAS CALLED TO PRONOUNCE PT. RENATO NOTIFIED COORDINATOR WAS SHELLIE ABDI [id number]. FAMILY WAS APPROACHED ABOUT DONATION AND DAUGHTER STATED SHE DID NOT THINK HER MOTHER WOULD WANT TO DONATE.
--- NOTE | 2020-07-03 20:58 | PC.NURSE ---
HOSPICE NOTIFIED ABOUT PT PASSING AT 2049.
--- NOTE | 2020-07-03 22:38 | PC.NURSE ---
Addendum entered by GAY Schmitz 07/03/20 22:50: HERMELINDA HANSON RN REQUESTED THAT [facility] BE NOTIFIED THAT THE FAMILY IS READY FOR THIS PTS BODY TO BE RELEASED TO THEIR HOME. Original Note: HERMELINDA HANSON RN.[facility] BE NOTIF[facility] THAT THIS FAMILY IS READY FOR THIS PT S BODY HOMTO BE RELEASED TO THEIR HOME. [facility] NOTIFIED
--- NOTE | 2020-07-03 23:12 | PC.NURSE ---
0752 HERMELINDA HANSON RN REQUESTED [facility] TO BE NOTIFIED THAT FAMILY IS READY FOR PTS BODY TO BE RELEASED TO [facility]. THIS WAS DONE
--- NOTE | 2020-07-03 23:55 | PC.NURSE ---
[facility] OFF THE FLOOR WITH PATIENT AT THIS TIME.
--- NOTE | 2020-07-03 23:55 | PC.NURSE ---
Pt body left with [facility] at this time, escorted by Ben Santillan RN
--- NOTE | 2020-07-04 16:14 | HMH.DCSUM ---
General - General Admission date:: 07/01/20 Discharge date: 07/03/20 HPI HPI: 74-year-old female presented to the emergency department this morning after developing rapid onset of shortness of breath both at rest and with exertion while at home in the preceding 24 hours. Her dyspnea did not respond to home aerosol treatments. Patient has underlying severe COPD and uses oxygen intermittently at home. She reports lack of effect of supplemental oxygen. Patient is able to check home pulse oximetry and when her oximeter read sats of 73% patient presented to the emergency department. Patient underwent evaluation in the emergency department and was found to have pneumonia of the left lung. White blood cell count was elevated at 23,000. Decision was made to admit the patient. Patient ruled out for Covid. While still waiting for bed in the ER patient had development of hypotension and is now on Levophed for pressure support. Hospital Course Hospital Course: Patient was admitted and started on broad-spectrum antibiotic coverage in addition to Solu-Medrol and duo nebs to treat pneumonia on top of COPD. Patient was hypotensive in the emergency department and met criteria for septic shock. She was treated with appropriate fluid bolus and 1 patient remained hypotensive after fluid resuscitation was started on Levophed along with normal saline at 150 mL's per hour. Patient was continued on IV fluids and Levophed and on the morning of the noted a feeling of slight improvement. She still remains short of breath. Lung sounds remain diminished on the left. She still required IV fluids and Levophed for pressure support. Creatinine had improved since admission. By the afternoon of the patient began to deteriorate. Increased work of breathing was noted. Repeat labs revealed a metabolic acidosis and worsening acute kidney injury. Patient's IV fluids were changed to D10 water +100 mEq of sodium bicarbonate for patient's metabolic acidosis. On the morning of the patient's condition was unchanged except for continued worsening respiratory failure. Repeat chest x-ray showed aggressive progression of the left lung pneumonia. Patient had developed an altered level of consciousness as well with inability to follow commands and answer questions. Patient's wishes were to be a DO NOT INTUBATE. Patient's family was contacted regarding her declining health. Because of the patient's DO NOT INTUBATE status I recommended goal of care turned to comfort only and that patient be made a full DO NOT RESUSCITATE. This was discussed with her daughter Dana. Patient was ultimately made a DO NOT RESUSCITATE. Family was at bedside. Patient was given Ativan and morphine for comfort and dyspnea. Patient on the evening of the Objective Vital signs: Temp Pulse Resp BP Pulse Ox 97.9 F 120 H 22 78/34 L 88 L 07/03/20 16:00 07/03/20 18:00 07/03/20 18:00 07/03/20 18:00 07/03/20 16:00 Results Labs on day of discharge: Preliminary micro results at discharge 07/01/20 07:35 Blood Culture - Preliminary Blood NO GROWTH AFTER 48 HOURS 07/01/20 07:35 Blood Culture - Preliminary Blood NO GROWTH AFTER 48 HOURS DS: Diagnosis - Discharge Diagnosis (1) Pneumonia Status: Acute (2) Respiratory failure with hypoxia Status: Acute (3) Septic shock Status: Acute (4) Acute respiratory failure Status: Acute (5) Severe sepsis with acute organ dysfunction Status: Acute (6) Chronic obstructive lung disease Status: Chronic (7) Hypertensive heart disease Status: Chronic (8) Pulmonary hypertension Status: Chronic (9) Acute kidney injury Status: Acute Discharge Plan - Patient Discharge Instructions - Follow up Plan Disposition: Home Medications: Home Medications Medication Instructions Recorded Confirmed Type carvedilol 6.25 mg tablet 6.25 mg
== END 2020-07-03 23:58 | disposition expired | DRG 193 ==
LOC: ER 09:14 → 2ND 09:53
PROVIDERS: Emergency Medicine; Admitting Provider Family Medicine; Emergency Provider Emergency Medicine; PCP Family Medicine; Visit Provider Family Medicine
DX: J18.9 Pneumonia, unspecified organism (principal); J96.21 Acute and chronic respiratory failure with hypoxia; R65.21 Severe sepsis with septic shock; N17.9 Acute kidney failure, unspecified; I25.10 Atherosclerotic heart disease of native coronary artery without angina pectoris; E78.5 Hyperlipidemia, unspecified; I27.20 Pulmonary hypertension, unspecified; I11.0 Hypertensive heart disease with heart failure; I50.9 Heart failure, unspecified; Z88.0 Allergy status to penicillin; Z88.5 Allergy status to narcotic agent; Z79.51 Long term (current) use of inhaled steroids; Z72.0 Tobacco use
CPT/HCPCS: 36415; 71045; 80048; 80053; 80076; 81001; 82803; 82962; 83605; 84145; 84484; 85007; 85025; 86328; 87040; 87070; 87205; 93005; 94640; 96365; 96366; 96367; 99285; J0692; J1956; J2790; J3370; U0003